=== PATIENT | male | born 1970 | race Caucasian/White ===

== ENCOUNTER 2017-05-24 07:34 | Emergency (ER) | payer OTHER ==
[~2017-05-24] VITALS: Ht 182.9 cm; Wt 97.5 kg
[2017-05-24 08:12] LABS: Basophils # (auto) 0.1 uL; Eosinophils # (auto) 0.3 uL; Eosinophils % (auto) 4.1 % (0.0-7.0); Hematocrit 38.8 % (41.0-53.0); Hemoglobin 13.6 g/dL (13.5-17.5); Lymphocytes # (auto) 1.4 uL; Lymphocytes % (auto) 17.7 % (10.0-50.0); Mean Corpuscular Hemoglobin 33.2 pg (28.0-32.0); Mean Corpuscular Volume 94.9 fL (80.0-100.0); Mean Platelet Volume 6.9 fL (6.9-10.8); Monocytes # (auto) 0.6 uL; Monocytes % (auto) 7.9 % (0.0-12.0); Neutrophils # (auto) 5.4 uL; Neutrophils % (auto) 69.3 % (37.0-80.0); Platelet Count (auto) 258 10^3/uL (140-450); Red Cell Distribution Width 13.7 % (11.8-14.3); White Blood Cell 7.8 10^3/uL (4.4-10.8)
[2017-05-24 08:23] LABS: INR 0.98 (0.9-1.15); Partial Thromboplastin Time 25.8 sec (22.64-33.71); Prothrombin Time 10.7 sec (9.37-12.3)
[2017-05-24 08:36] LABS: BUN/Creatinine Ratio 23.1; Bilirubin, Total 0.5 mg/dL (0.2-1.0); Calcium 8.7 mg/dL (8.5-10.1); Potassium 3.4 mmol/L (3.5-5.1); Total Protein 7.3 g/dL (6.4-8.2)
[2017-05-24 08:49] VITALS: BP 123/79
== END 2017-05-24 09:06 | disposition home or self-care (01) ==
LOC: ER 07:34
DX: R04.0 Epistaxis (principal); I10 Essential (primary) hypertension
CPT/HCPCS: 30901; 36415; 80053; 85025; 85610; 85730

== ENCOUNTER 2017-05-26 09:39 | Emergency (ER) | payer OTHER ==
[~2017-05-26] VITALS: Ht 182.9 cm; Wt 98.0 kg
[2017-05-26 11:12] VITALS: BP 146/100
== END 2017-05-26 11:40 | disposition home or self-care (01) ==
LOC: ER 09:39
DX: R04.0 Epistaxis (principal); I10 Essential (primary) hypertension; Z48.02 Encounter for removal of sutures

== ENCOUNTER 2022-04-11 06:35 | Day surgery (SDC) | payer OTHER ==
[2022-04-11] VITALS (7 sets, daily range): BP systolic 141–163; BP diastolic 91–106
[~2022-04-11] VITALS: Ht 180.3 cm; Wt 112.0 kg
[~2022-04-11 06:35] MED LIST: AMLO-489 PO; ASPI325T4 PO; CLON0.2T PO; LABE200T7 PO; LISI40TA11 PO; LORA0.5T20 PO; POTA-220 PO; TRIA37.55 PO
[2022-04-11] MEDS ORDERED: IOHEXOL 350 MG/ML 100ML IJ ONE ×2 (07:18→07:39)
[2022-04-11] MEDS ORDERED: LIDOCAINE 2%HCL (LOCAL ANESTH.) INJ 10ml MDV ONE (07:40)
[2022-04-11] MEDS ORDERED: VERAPAMIL 2.5MG/ML INJ 2ML VIAL IV ONE (08:14)
[2022-04-11] MEDS ORDERED: ANGIOMAX 250 MG VIAL IV ONE (08:14)
[2022-04-11] MEDS ORDERED: fentaNYL CITRATE 100 MCG/2 ML VL ONE (08:14)
[2022-04-11] MEDS ORDERED: HEPARIN SODIUM (PORCINE) 5000 UNITS/ML 1ML VIAL ONE (08:14)
[2022-04-11] MEDS ORDERED: MIDAZOLAM HCL 2MG/2ML 2ml VIAL (1mg/ml) ONE (08:15)
[2022-04-11] MEDS ORDERED: SODIUM CHL 0.9% 0 ML ONE (08:15)
[2022-04-11] MEDS ORDERED: diphenhdrAMINE HCL 50 MG/1 ML VL ONE (08:38)
== END 2022-04-11 11:20 | disposition home or self-care (01) ==
LOC: CATH 06:35
PROVIDERS: ATTEND Internal Medicine
DX: R94.39 Abnormal result of other cardiovascular function study (principal); I25.10 Atherosclerotic heart disease of native coronary artery without angina pectoris; I10 Essential (primary) hypertension; I25.2 Old myocardial infarction; Z95.5 Presence of coronary angioplasty implant and graft; Z87.891 Personal history of nicotine dependence; Z79.82 Long term (current) use of aspirin; Z20.822 Contact with and (suspected) exposure to COVID-19
CPT/HCPCS: 93458; C1887; C1894; J1200; J1644; J2001; J2250; J3010; Q9967; U0003; 99152

== ENCOUNTER 2022-05-06 09:18 | Inpatient (IN) | payer OTHER ==
[~2022-05-06] VITALS: Ht 180.3 cm; Wt 110.8 kg
[2022-05-06] MEDS ORDERED: SODIUM CHLORIDE 0.9% 1,000 ML IV ONE (10:00)
[2022-05-06] MEDS: ASPirin 81 mg TAB PO ONE ×2 (10:19→10:34)
[2022-05-06 10:52] LABS: INR 1.06 (0.9-1.15); Partial Thromboplastin Time 23.5 sec (24.6-33.4)
[2022-05-06 11:02] LABS: Albumin 3.5 g/dL (3.4-5.0); Calcium 8.5 mg/dL (8.5-10.1); Magnesium 2.1 mg/dL (1.6-2.6); Potassium 3.8 mmol/L (3.5-5.1)
[2022-05-06 11:05] LABS: BUN/Creatinine Ratio 15.3; Bilirubin, Total 0.3 mg/dL (0.2-1.0); Total Protein 6.4 g/dL (6.4-8.2)
[2022-05-06 11:32] LABS: Basophils # (auto) 0.1 10 ^3/uL (0-0.2); Basophils % (auto) 0.9 % (0.0-2.0); Eosinophils # (auto) 0.3 10 ^3/uL (0-0.8); Eosinophils % (auto) 3.8 % (0.0-7.0); Hematocrit 40.8 % (41.0-53.0); Hemoglobin 13.3 g/dL (13.5-17.5); Lymphocytes # (auto) 0.8 10 ^3/uL (0.4-5.4); Lymphocytes % (auto) 9.2 % (10.0-50.0); Mean Corpuscular Hemoglobin 29.7 pg (28.0-32.0); Mean Corpuscular Hgb Conc. 32.6 g/dL (32.0-36.0); Mean Corpuscular Volume 91.3 fL (80.0-100.0); Monocytes # (auto) 0.9 10 ^3/uL (0-1.3); Monocytes % (auto) 10.6 % (0.0-12.0); Neutrophils # (auto) 6.4 10 ^3/uL (1.6-8.6); Neutrophils % (auto) 75.5 % (37.0-80.0); Red Blood Cells 4.47 10^6/uL (4.5-5.90); Red Cell Distribution Width 14.7 % (11.8-14.3); White Blood Cell 8.5 10^3/uL (4.4-10.8)
[2022-05-06] MEDS ORDERED: MORPHINE SULFATE INJ 2 MG/ml SYRG IV PRN (19:00)
[2022-05-06] MEDS ORDERED: NITROGLYCERIN 0.4 MG SL TAB SL PRN (19:00)
[2022-05-06] MEDS ORDERED: hydrALAZINE HCL 20 MG/ML VL IV PRN (19:15)
[2022-05-06] MEDS ORDERED: ACETAMINOPHEN 325 MG TAB PO ONE (20:45)
[2022-05-06 22:00] VITALS: BP 157/84
[2022-05-06] MEDS: cloNIDine HCL 0.1 MG TAB PO SCH (23:00)
[2022-05-06] MEDS: amLODIPine BESYLATE 5 MG TAB PO SCH (23:00)
[2022-05-07] MEDS: guaiFENesin-DM 100/10mg/5ml SYR PO PRN ×3 (00:50→16:17)
[2022-05-07 05:00] VITALS: BP 143/83
[2022-05-07 06:17] LABS: Basophils # (auto) 0.1 10 ^3/uL (0-0.2); Basophils % (auto) 0.9 % (0.0-2.0); Eosinophils # (auto) 0.3 10 ^3/uL (0-0.8); Eosinophils % (auto) 4.5 % (0.0-7.0); Hematocrit 41.3 % (41.0-53.0); Hemoglobin 13.5 g/dL (13.5-17.5); Lymphocytes # (auto) 1.3 10 ^3/uL (0.4-5.4); Lymphocytes % (auto) 18.5 % (10.0-50.0); Mean Corpuscular Hemoglobin 29.8 pg (28.0-32.0); Mean Corpuscular Hgb Conc. 32.6 g/dL (32.0-36.0); Mean Corpuscular Volume 91.4 fL (80.0-100.0); Monocytes # (auto) 0.9 10 ^3/uL (0-1.3); Monocytes % (auto) 12.1 % (0.0-12.0); Neutrophils # (auto) 4.6 10 ^3/uL (1.6-8.6); Nucleated Red Blood Cells % 0.2 %; Red Blood Cells 4.52 10^6/uL (4.5-5.90); Red Cell Distribution Width 14.4 % (11.8-14.3); White Blood Cell 7.1 10^3/uL (4.4-10.8)
[2022-05-07 06:25] LABS: Potassium 3.4 mmol/L (3.5-5.1)
[2022-05-07 06:32] LABS: Albumin 3.3 g/dL (3.4-5.0); BUN/Creatinine Ratio 18.4; Bilirubin, Total 0.4 mg/dL (0.2-1.0); Calcium 8.3 mg/dL (8.5-10.1); Total Protein 6.1 g/dL (6.4-8.2)
[2022-05-07] MEDS: ACETAMINOPHEN 325 MG TAB PO PRN ×2 (07:24→18:53)
[2022-05-07 07:45] LABS: Urine Bacteria NONE SEEN /hpf (None Seen); Urine Blood Negative /uL (Negative); Urine Mucus FEW (None Seen); Urine WBC 2 /hpf (0 - 3)
[2022-05-07 07:59] LABS: Alcohol, Urine < 3.0 mg/dL (0-10); Amphetamine Screen, Urine NEGATIVE (NEGATIVE); Barbiturate Scree,Urine NEGATIVE (NEGATIVE); Benzodiazephine Screen, Urine NEGATIVE (NEGATIVE); Cannabinoid Screen, Urine NEGATIVE (NEGATIVE); Cocaine Screen, Urine NEGATIVE (NEGATIVE); Opiate Scree,Urine NEGATIVE (NEGATIVE); Phencyclidine Screen, Urine NEGATIVE (NEGATIVE)
[2022-05-07] MEDS: amLODIPine BESYLATE 5 MG TAB PO SCH ×2 (09:17→21:29)
[2022-05-07] MEDS: LISINOPRIL 20 MG TAB PO SCH (09:17)
[2022-05-07] MEDS: cloNIDine HCL 0.1 MG TAB PO SCH ×2 (09:18→21:28)
[2022-05-07] MEDS: ENOXAPARIN SOD 40 MG/0.4 ML SYRINGE SC SCH ×2 (09:18→09:27)
[2022-05-07] MEDS: TRIAMTERENE/HCTZ 37.5/25 MG CAP/TAB PO SCH (09:19)
[2022-05-07] MEDS: ASPirin-EC 325mg tab PO SCH (09:19)
[2022-05-07 09:26] VITALS: BP 137/84
[2022-05-07] MEDS ORDERED: POTASSIUM CHL 20 Meq TABLET PO ONE (11:00)
[2022-05-07] MEDS: LORazepam 0.5 MG TAB PO PRN ×2 (11:15→18:54)
[2022-05-07 13:00] VITALS: BP 146/92
[2022-05-07] MEDS ORDERED: POTASSIUM EFFERVESENT TAB 25 MEQ PO ONE (15:00)
[2022-05-07 16:23] VITALS: BP 157/92
[2022-05-07] MEDS: ALBUTEROL SULF 2.5 MG/0.5ML(0.5%) NEB SOLN NEB PRN (18:24)
[2022-05-07 18:28] VITALS: BP 157/92
[2022-05-07] MEDS: POTASSIUM CHL 20 Meq TABLET PO SCH (21:29)
[2022-05-07 21:59] VITALS: BP 137/79
[2022-05-07] MEDS: MORPHINE SULFATE INJ 2 MG/ml SYRG IV PRN (22:57)
[2022-05-07] MEDS: ONDANSETRON HCL 4 MG/2 ML VIAL IV PRN (23:00)
[2022-05-08] MEDS: ALBUTEROL SULF 2.5 MG/0.5ML(0.5%) NEB SOLN NEB PRN ×3 (02:03→11:07)
[2022-05-08 04:47] VITALS: BP 128/76
[2022-05-08] MEDS: ONDANSETRON HCL 4 MG/2 ML VIAL IV PRN (06:14)
[2022-05-08] MEDS: MORPHINE SULFATE INJ 2 MG/ml SYRG IV PRN ×2 (06:14→10:46)
[2022-05-08] MEDS: LORazepam 0.5 MG TAB PO PRN (07:40)
[2022-05-08 09:09] VITALS: BP 139/67
[2022-05-08] MEDS ORDERED: POTASSIUM CHL 20 Meq TABLET PO ONE (09:30)
[2022-05-08] MEDS: ASPirin-EC 325mg tab PO SCH (09:41)
[2022-05-08] MEDS: LISINOPRIL 20 MG TAB PO SCH (09:41)
[2022-05-08] MEDS: POTASSIUM CHL 20 Meq TABLET PO SCH (09:42)
[2022-05-08] MEDS: amLODIPine BESYLATE 5 MG TAB PO SCH (09:43)
[2022-05-08] MEDS: cloNIDine HCL 0.1 MG TAB PO SCH (09:44)
[2022-05-08] MEDS: TRIAMTERENE/HCTZ 37.5/25 MG CAP/TAB PO SCH (09:45)
[2022-05-08] MEDS: ENOXAPARIN SOD 40 MG/0.4 ML SYRINGE SC SCH (09:50)
[2022-05-08] MEDS ORDERED: ALBUAER3 IN (11:11)
[2022-05-08 13:33] VITALS: BP 139/86
[2022-05-08 13:58] VITALS: BP 139/86
== END 2022-05-08 14:00 | disposition home or self-care (01) | DRG 308 ==
LOC: ER 09:18 → EDBD 09:18 → TELE 18:58 → TELE-CENTR 22:21
PROVIDERS: ADMIT Registered Nurse; ATTEND Registered Nurse
DX: I49.3 Ventricular premature depolarization (principal); I50.33 Acute on chronic diastolic (congestive) heart failure; C61 Malignant neoplasm of prostate; E87.6 Hypokalemia; F10.10 Alcohol abuse, uncomplicated; I11.0 Hypertensive heart disease with heart failure; F41.9 Anxiety disorder, unspecified; Z20.822 Contact with and (suspected) exposure to COVID-19; G47.33 Obstructive sleep apnea (adult) (pediatric); F17.290 Nicotine dependence, other tobacco product, uncomplicated; Z71.41 Alcohol abuse counseling and surveillance of alcoholic; Z80.9 Family history of malignant neoplasm, unspecified; Z85.46 Personal history of malignant neoplasm of prostate; Z90.49 Acquired absence of other specified parts of digestive tract
CPT/HCPCS: 36415; 70450; 71045; 80053; 80307; 80320; 81001; 83735; 83880; 84484; 85025; 85610; 85730; 93005; 93306; 94640; 96361; 96374; G0378; J2405

== ENCOUNTER 2022-05-24 06:14 | Inpatient (IN) | payer OTHER ==
[2022-05-20 11:36] LABS: Basophils # (auto) 0.1 10 ^3/uL (0-0.2); Basophils % (auto) 0.8 % (0.0-2.0); Eosinophils # (auto) 0.3 10 ^3/uL (0-0.8); Eosinophils % (auto) 3.4 % (0.0-7.0); Hemoglobin 13.1 g/dL (13.5-17.5); Lymphocytes # (auto) 1.5 10 ^3/uL (0.4-5.4); Lymphocytes % (auto) 15.2 % (10.0-50.0); Mean Corpuscular Hemoglobin 29.9 pg (28.0-32.0); Mean Corpuscular Hgb Conc. 33.4 g/dL (32.0-36.0); Mean Corpuscular Volume 89.5 fL (80.0-100.0); Monocytes # (auto) 0.7 10 ^3/uL (0-1.3); Monocytes % (auto) 7.5 % (0.0-12.0); Neutrophils # (auto) 7.1 10 ^3/uL (1.6-8.6); Neutrophils % (auto) 73.1 % (37.0-80.0); Red Blood Cells 4.36 10^6/uL (4.5-5.90); Red Cell Distribution Width 14.2 % (11.8-14.3); White Blood Cell 9.8 10^3/uL (4.4-10.8)
[2022-05-20 11:47] LABS: INR 0.99 (0.9-1.15); Partial Thromboplastin Time 25.7 sec (24.6-33.4)
[2022-05-20 11:54] LABS: Urine Bacteria NONE SEEN /hpf (None Seen); Urine Blood Negative /uL (Negative); Urine Specific Gravity 1.004 (1.001-1.035); Urine WBC <1 /hpf (0 - 3)
[2022-05-20 12:40] LABS: Potassium 3.5 mmol/L (3.5-5.1)
[2022-05-20 12:56] LABS: BUN/Creatinine Ratio 15.2
[2022-05-20 12:57] LABS: Albumin 3.8 g/dL (3.4-5.0); Bilirubin, Total 0.4 mg/dL (0.2-1.0); Total Protein 6.8 g/dL (6.4-8.2)
[~2022-05-24] VITALS: Ht 180.3 cm; Wt 277.8 kg
[~2022-05-24 06:14] MED LIST changes: +LABE100T39 PO; -LABE200T7 PO; +TRAZ1TAB12 PO
[2022-05-24] MEDS ORDERED: LIDOCAINE 1%HCL (LOCAL ANESTH) 10 ML MDV ONE (06:49)
[2022-05-24] MEDS ORDERED: METHYLENE BLUE 0.5% 5MG/ML 10ml AMP IV ONE (06:49)
[2022-05-24] MEDS ORDERED: BUPIVACAINE W/ EPINEPH 0.25% INJ 50ML MDV ONE (06:49)
[2022-05-24] MEDS ORDERED: EPINEPHrine HCL 1 MG/1 ML AMP ONE (06:49)
[2022-05-24] MEDS ORDERED: ceFAZolin 1GM/50ML 100 ML IV ONE (07:18)
[2022-05-24] MEDS ORDERED: MIDAZOLAM HCL 2MG/2ML 2ml VIAL (1mg/ml) ONE (07:34)
[2022-05-24] MEDS ORDERED: fentaNYL CITRATE 10 ML ONE (07:34)
[2022-05-24] MEDS ORDERED: ROCURONIUM 10MG/ML 10ML VIAL IV ONE (08:50)
[2022-05-24] MEDS ORDERED: fentaNYL CITRATE 5 ML ONE ×2 (09:13→10:32)
[2022-05-24] MEDS ORDERED: HYDROmorphone HCL 2 MG/ML VL/or syr IV PRN (09:45)
[2022-05-24] MEDS ORDERED: ONDANSETRON HCL 4 MG/2 ML VIAL IV PRN ×2 (09:45→12:45)
[2022-05-24] MEDS ORDERED: ONDANSETRON HCL 4 MG/2 ML VIAL ONE (11:55)
[2022-05-24] MEDS ORDERED: PROPOFOL 10 MG/ML 20 ML IV ONE (12:27)
[2022-05-24] MEDS ORDERED: NEOSTIGMINE 1 MG/ML INJ (10mg/10ML VIAL) ONE (12:28)
[2022-05-24] MEDS ORDERED: GLYCOPYRROLATE 0.2 MG/ML 1ML VIAL ONE (12:28)
[2022-05-24] MEDS: HYDROmorphone HCL 2 MG/ML VL/or syr IV PRN ×4 (12:35→20:05)
[2022-05-24] MEDS ORDERED: HYDROmorphone HCL 2 MG/ML VL/or syr ONE (12:41)
[2022-05-24] MEDS ORDERED: NITROGLYCERIN 0.4 MG SL TAB SL PRN (12:45)
[2022-05-24] MEDS ORDERED: MORPHINE SULFATE INJ 2 MG/ml SYRG IV PRN ×2 (12:45)
[2022-05-24] MEDS ORDERED: TEMAZEPAM 15 MG CAP PO PRN (12:45)
[2022-05-24] MEDS ORDERED: ACETAMINOPHEN 325 MG TAB PO PRN (12:45)
[2022-05-24] MEDS ORDERED: DOCUSATE SOD 100 MG CAP PO PRN (12:45)
[2022-05-24] MEDS ORDERED: MEPERIDINE HCL (50 MG/ML) 1 ML VIAL ONE (12:57)
[2022-05-24] MEDS ORDERED: MEPERIDINE HCL (25 MG/ML) 1ML VIAL IV ONE (13:00)
[2022-05-24] MEDS ORDERED: SUCCINYLCHOLINE CHLORIDE 20 MG/ML 10ML VIAL IV ONE (14:56)
[2022-05-24] MEDS: SODIUM CHLORIDE 0.9% 1,000 ML IV SCH (16:30)
[2022-05-24] MEDS ORDERED: HYDROmorphone HCL 2 MG/ML VL/or syr IV ONE (20:45)
[2022-05-24 22:00] VITALS: BP 150/107
[2022-05-25] MEDS: HYDROmorphone HCL 2 MG/ML VL/or syr IV PRN ×4 (02:10→14:42)
[2022-05-25 05:00] VITALS: BP 125/56
[2022-05-25] MEDS: SODIUM CHLORIDE 0.9% 1,000 ML IV SCH (05:10)
[2022-05-25 09:00] VITALS: BP 157/90
[2022-05-25 12:19] VITALS: BP 163/71
[2022-05-25] MEDS: HYDROcodone-ACET 5/325MG TAB PO PRN ×2 (12:45→19:05)
[2022-05-25] MEDS ORDERED: CIPROFLOXACIN HCL 500 MG TAB PO ONE (13:30)
[2022-05-25] MEDS ORDERED: LORazepam 0.5 MG TAB PO SCH (14:00)
[2022-05-25 16:52] VITALS: BP 138/97
[2022-05-25] MEDS ORDERED: traZODone HCL 50 MG TAB PO SCH (18:00)
[2022-05-25 18:15] VITALS: BP 139/97
[2022-05-25] MEDS ORDERED: CIPROFLOXACIN HCL 500 MG TAB PO SCH (22:00)
[2022-05-25] MEDS ORDERED: cloNIDine HCL 0.1 MG TAB PO SCH (22:00)
[2022-05-25] MEDS ORDERED: LABETALOL HCL 200 MG TAB PO SCH (22:00)
[2022-05-25] MEDS ORDERED: POTASSIUM CHL 20 Meq TABLET PO SCH (22:00)
[2022-05-26] MEDS ORDERED: ASPirin 325 MG TAB PO SCH (10:00)
[2022-05-26] MEDS ORDERED: TRIAMTERENE/HCTZ 37.5/25 MG CAP/TAB PO SCH (10:00)
[2022-05-26] MEDS ORDERED: LISINOPRIL 20 MG TAB PO SCH (10:00)
[2022-05-26] MEDS ORDERED: amLODIPine BESYLATE 5 MG TAB PO SCH (10:00)
== END 2022-05-25 19:10 | disposition home or self-care (01) | DRG 708 ==
LOC: SUR 06:14 → OVERFLOW 12:43 → TELE 14:44 → TELE-EAST 15:38
PROVIDERS: ADMIT Urology; ATTEND Urology
PROC: 07BC4ZZ Excision of Pelvis Lymphatic, Percutaneous Endoscopic Approach (ICD-10-PCS; 2022-05-24)
PROC: 0VT04ZZ Resection of Prostate, Percutaneous Endoscopic Approach (ICD-10-PCS; 2022-05-24)
PROC: 8E0W4CZ Robotic Assisted Procedure of Trunk Region, Percutaneous Endoscopic Approach (ICD-10-PCS; principal; 2022-05-24 07:41)
DX: C61 Malignant neoplasm of prostate (principal); Z20.822 Contact with and (suspected) exposure to COVID-19
CPT/HCPCS: 36415; 80053; 81001; 85025; 85610; 85730; 86850; 86900; 86901; 87086; G0378; J0171; J0330; J0690; J2001; J2250; J2405; J2704

== ENCOUNTER 2023-03-20 15:42 | Inpatient (IN) | payer OTHER ==
[~2023-03-20] VITALS: Ht 154.7 cm; Wt 120.0 kg
[~2023-03-20 15:42] MED LIST changes: -AMLO-489 PO; +AMLO1TAB22 PO; -ASPI325T4 PO; +CARV25TA55 PO; +ESCI5TAB20 PO; +ISOS5TAB PO; -LABE100T39 PO; -LISI40TA11 PO; +LORA-1121 PO; -LORA0.5T20 PO; -TRIA37.55 PO; +TRIA37.586 PO
[2023-03-20 16:14] LABS: Basophils # (auto) 0.1 10 ^3/uL (0-0.2); Basophils % (auto) 1.1 % (0.0-2.0); Eosinophils # (auto) 0.4 10 ^3/uL (0-0.8); Eosinophils % (auto) 4.3 % (0.0-7.0); Hematocrit 42.5 % (41.0-53.0); Hemoglobin 14.2 g/dL (13.5-17.5); Lymphocytes % (auto) 19.8 % (10.0-50.0); Mean Corpuscular Hemoglobin 30.6 pg (28.0-32.0); Mean Corpuscular Hgb Conc. 33.4 g/dL (32.0-36.0); Mean Corpuscular Volume 91.6 fL (80.0-100.0); Monocytes # (auto) 0.9 10 ^3/uL (0-1.3); Monocytes % (auto) 9.1 % (0.0-12.0); Neutrophils # (auto) 6.7 10 ^3/uL (1.6-8.6); Neutrophils % (auto) 65.7 % (37.0-80.0); Nucleated Red Blood Cells % 0.1 %; Red Blood Cells 4.64 10^6/uL (4.5-5.90); Red Cell Distribution Width 14.4 % (11.8-14.3); White Blood Cell 10.2 10^3/uL (4.4-10.8)
[2023-03-20] MEDS ORDERED: MORPHINE SULFATE 4 MG/ML SYR/VIAL IV ONE (16:15)
[2023-03-20] MEDS ORDERED: ONDANSETRON HCL 4 MG/2 ML VIAL IV ONE (16:15)
[2023-03-20 16:26] LABS: Albumin 3.9 g/dL (3.4-5.0); Calcium 9.1 mg/dL (8.5-10.1); Potassium 3.6 mmol/L (3.5-5.1)
[2023-03-20 16:28] VITALS: PULSE 54; RESP 20; O2SAT 98
[2023-03-20 16:30] LABS: BUN/Creatinine Ratio 15.8 (10.0-20.0); Bilirubin, Total 0.4 mg/dL (0.2-1.0); INR 1.01 (0.9-1.15); Magnesium 2.6 mg/dL (1.6-2.6); Partial Thromboplastin Time 26.6 SEC (24.5-34.5); Total Protein 6.5 g/dL (6.4-8.2)
[2023-03-20] MEDS ORDERED: CALCIUM GLUC 1,000mg/50ml-NS 50 ML IV ONE (17:00)
[2023-03-20] MEDS ORDERED: ACETAMINOPHEN 325 MG TAB PO PRN (18:00)
[2023-03-20] MEDS ORDERED: NITROGLYCERIN 0.4 MG SL TAB SL PRN (18:00)
[2023-03-20] MEDS ORDERED: MORPHINE SULFATE INJ 2 MG/ml SYRG IV PRN ×2 (18:00)
[2023-03-20] MEDS ORDERED: HYDROcodone-ACET 5/325MG TAB PO PRN (18:00)
[2023-03-20] MEDS ORDERED: LORazepam 2MG/ML-1ML VIAL IV ONE (18:00)
[2023-03-20] MEDS ORDERED: ASPirin-EC 325mg tab PO ONE (18:15)
[2023-03-20 19:25] VITALS: PULSE 57; RESP 15; O2SAT 96
[2023-03-20] MEDS ORDERED: LORazepam 0.5 MG TAB PO PRN (21:00)
[2023-03-20] MEDS: POTASSIUM CHL 20 Meq TABLET PO SCH (21:58)
[2023-03-20] MEDS: cloNIDine HCL 0.1 MG TAB PO SCH (21:59)
[2023-03-20] MEDS: LORazepam 0.5 MG TAB PO SCH (21:59)
[2023-03-20] MEDS ORDERED: traZODone HCL 50 MG TAB PO ONE (22:00)
[2023-03-20] MEDS: ISOSORBIDE DINITRATE 10 MG TAB PO SCH (22:00)
[2023-03-20] MEDS: ATORVASTATIN 20 MG TAB PO SCH (22:00)
[2023-03-21 03:33] LABS: Urine Bacteria NONE SEEN /hpf (None Seen); Urine Blood Negative /uL (Negative); Urine Mucus FEW (None Seen); Urine Specific Gravity 1.016 (1.001-1.035); Urine WBC 4 /hpf (0 - 3)
[2023-03-21 04:10] LABS: Alcohol, Urine < 3.0 mg/dL (0-10); Amphetamine Screen, Urine NEGATIVE (NEGATIVE); Barbiturate Scree,Urine NEGATIVE (NEGATIVE); Benzodiazephine Screen, Urine NEGATIVE (NEGATIVE); Cannabinoid Screen, Urine NEGATIVE (NEGATIVE)
[2023-03-21 04:12] LABS: Cocaine Screen, Urine NEGATIVE (NEGATIVE); Opiate Scree,Urine NEGATIVE (NEGATIVE); Phencyclidine Screen, Urine NEGATIVE (NEGATIVE)
[2023-03-21 05:33] LABS: Basophils # (auto) 0.1 10 ^3/uL (0-0.2); Basophils % (auto) 1.1 % (0.0-2.0); Eosinophils # (auto) 0.3 10 ^3/uL (0-0.8); Eosinophils % (auto) 5.3 % (0.0-7.0); Hematocrit 40.2 % (41.0-53.0); Hemoglobin 13.2 g/dL (13.5-17.5); Lymphocytes # (auto) 1.2 10 ^3/uL (0.4-5.4); Lymphocytes % (auto) 19.7 % (10.0-50.0); Mean Corpuscular Hemoglobin 30.4 pg (28.0-32.0); Mean Corpuscular Hgb Conc. 32.9 g/dL (32.0-36.0); Mean Corpuscular Volume 92.6 fL (80.0-100.0); Monocytes # (auto) 0.7 10 ^3/uL (0-1.3); Monocytes % (auto) 10.3 % (0.0-12.0); Neutrophils % (auto) 63.6 % (37.0-80.0); Red Blood Cells 4.34 10^6/uL (4.5-5.90); Red Cell Distribution Width 14.7 % (11.8-14.3); White Blood Cell 6.3 10^3/uL (4.4-10.8)
[2023-03-21 05:49] LABS: Albumin 3.6 g/dL (3.4-5.0); Calcium 8.6 mg/dL (8.5-10.1); Potassium 3.5 mmol/L (3.5-5.1)
[2023-03-21] MEDS: cloNIDine HCL 0.1 MG TAB PO SCH ×3 (05:53→20:32)
[2023-03-21] MEDS: LORazepam 0.5 MG TAB PO SCH ×3 (05:53→20:32)
[2023-03-21 05:57] LABS: Bilirubin, Total 0.5 mg/dL (0.2-1.0); Total Protein 6.3 g/dL (6.4-8.2)
[2023-03-21 07:37] VITALS: PULSE 48; RESP 17; O2SAT 97
[2023-03-21] MEDS: amLODIPine BESYLATE 5 MG TAB PO SCH (10:00)
[2023-03-21] MEDS: ENOXAPARIN SOD 40 MG/0.4 ML SYRINGE SC SCH ×2 (10:00→10:05)
[2023-03-21] MEDS: CITALOPRAM HYDROBR 20 MG TAB PO SCH (10:05)
[2023-03-21] MEDS: POTASSIUM CHL 20 Meq TABLET PO SCH ×2 (10:05→20:34)
[2023-03-21] MEDS: ASPirin-EC 81 mg tab PO SCH (10:05)
[2023-03-21] MEDS: ISOSORBIDE DINITRATE 10 MG TAB PO SCH ×2 (10:06→20:32)
[2023-03-21] MEDS: TRIAMTERENE/HCTZ 75/50MG TABLET PO SCH (10:07)
[2023-03-21] MEDS: CARVEDILOL 12.5 MG TAB PO SCH ×2 (13:35→22:00)
[2023-03-21] MEDS ORDERED: traZODone HCL 50 MG TAB PO SCH ×2 (18:00→21:00)
[2023-03-21 20:00] VITALS: PULSE 58; PULSE 64; RESP 18; O2SAT 95
[2023-03-21] MEDS: ATORVASTATIN 20 MG TAB PO SCH (20:30)
[2023-03-22 05:04] VITALS: BP 138/80; PULSE 55; RESP 22; TEMP 98.5; O2SAT 96
[2023-03-22] MEDS: CARVEDILOL 12.5 MG TAB PO SCH ×2 (06:00→14:00)
[2023-03-22] MEDS: LORazepam 0.5 MG TAB PO SCH ×2 (06:30→15:16)
[2023-03-22] MEDS: cloNIDine HCL 0.1 MG TAB PO SCH ×2 (06:31→14:00)
[2023-03-22 06:48] LABS: Basophils # (auto) 0.1 10 ^3/uL (0-0.2); Basophils % (auto) 1.2 % (0.0-2.0); Eosinophils # (auto) 0.3 10 ^3/uL (0-0.8); Eosinophils % (auto) 4.8 % (0.0-7.0); Hematocrit 39.2 % (41.0-53.0); Hemoglobin 13.1 g/dL (13.5-17.5); Lymphocytes % (auto) 18.9 % (10.0-50.0); Mean Corpuscular Hemoglobin 30.8 pg (28.0-32.0); Mean Corpuscular Hgb Conc. 33.6 g/dL (32.0-36.0); Mean Corpuscular Volume 91.8 fL (80.0-100.0); Monocytes # (auto) 0.5 10 ^3/uL (0-1.3); Monocytes % (auto) 8.6 % (0.0-12.0); Neutrophils # (auto) 3.6 10 ^3/uL (1.6-8.6); Neutrophils % (auto) 66.5 % (37.0-80.0); Nucleated Red Blood Cells % 0.1 %; Red Blood Cells 4.26 10^6/uL (4.5-5.90); Red Cell Distribution Width 14.4 % (11.8-14.3); White Blood Cell 5.5 10^3/uL (4.4-10.8)
[2023-03-22 06:55] LABS: BUN/Creatinine Ratio 18.4 (10.0-20.0); Calcium 8.3 mg/dL (8.5-10.1); Potassium 3.8 mmol/L (3.5-5.1)
[2023-03-22 08:00] VITALS: PULSE 64; RESP 18
[2023-03-22 09:00] VITALS: BP 118/58; PULSE 51; RESP 21; TEMP 97.3; O2SAT 96
[2023-03-22] MEDS: ASPirin-EC 81 mg tab PO SCH (09:52)
[2023-03-22] MEDS: CITALOPRAM HYDROBR 20 MG TAB PO SCH (09:52)
[2023-03-22] MEDS: POTASSIUM CHL 20 Meq TABLET PO SCH (09:53)
[2023-03-22] MEDS: ISOSORBIDE DINITRATE 10 MG TAB PO SCH (09:53)
[2023-03-22] MEDS: amLODIPine BESYLATE 5 MG TAB PO SCH (09:53)
[2023-03-22] MEDS: TRIAMTERENE/HCTZ 75/50MG TABLET PO SCH (09:54)
[2023-03-22] MEDS: ENOXAPARIN SOD 40 MG/0.4 ML SYRINGE SC SCH (09:54)
[2023-03-22 13:00] VITALS: BP 116/70; PULSE 50; RESP 21; TEMP 98.2; O2SAT 96
[2023-03-22 14:11] VITALS: BP 118/58; PULSE 55; TEMP 36.3
[2023-03-22 17:00] VITALS: BP 131/70; PULSE 81; RESP 19; TEMP 98.4; O2SAT 98
== END 2023-03-22 18:07 | disposition home or self-care (01) | DRG 313 ==
LOC: ER 15:42 → TELE 18:02 → TELE-EAST 03-21 17:26
PROVIDERS: ADMIT Internal Medicine Pulmonary Disease; ATTEND Student in an Organized Health Care Education/Training Program
DX: R07.9 Chest pain, unspecified (principal); Z68.42 Body mass index [BMI] 45.0-49.9, adult; I50.22 Chronic systolic (congestive) heart failure; E66.01 Morbid (severe) obesity due to excess calories; I11.0 Hypertensive heart disease with heart failure; M19.90 Unspecified osteoarthritis, unspecified site; F41.9 Anxiety disorder, unspecified; E87.6 Hypokalemia; G47.33 Obstructive sleep apnea (adult) (pediatric); I49.3 Ventricular premature depolarization; Z80.9 Family history of malignant neoplasm, unspecified; Z90.49 Acquired absence of other specified parts of digestive tract; Z85.46 Personal history of malignant neoplasm of prostate; Z79.899 Other long term (current) drug therapy
CPT/HCPCS: 36415; 71045; 80048; 80053; 80061; 80307; 81001; 83735; 83880; 84443; 84484; 85025; 85379; 85610; 85730; 93005; 93306; 93970; 96374; 96375; 99291; G0378; J2405

== ENCOUNTER 2024-04-30 08:25 | Inpatient (IN) | payer OTHER ==
[~2024-04-30] VITALS: Ht 180.3 cm; Wt 114.1 kg
[~2024-04-30 08:25] MED LIST changes: +BUPR100T16 PO; +CARV12.544 PO
[2024-04-30 11:08] LABS: Basophils # (auto) 0.1 10 ^3/uL (0-0.2); Basophils % (auto) 0.9 % (0.0-2.0); Eosinophils # (auto) 0.3 10 ^3/uL (0-0.8); Eosinophils % (auto) 3.1 % (0.0-7.0); Hematocrit 38.5 % (41.0-53.0); Hemoglobin 13.3 g/dL (13.5-17.5); Lymphocytes # (auto) 1.5 10 ^3/uL (0.4-5.4); Lymphocytes % (auto) 14.7 % (10.0-50.0); Mean Corpuscular Hemoglobin 32.8 pg (28.0-32.0); Mean Corpuscular Hgb Conc. 34.6 g/dL (32.0-36.0); Monocytes # (auto) 0.8 10 ^3/uL (0-1.3); Monocytes % (auto) 7.6 % (0.0-12.0); Neutrophils # (auto) 7.5 10 ^3/uL (1.6-8.6); Neutrophils % (auto) 73.7 % (37.0-80.0); Platelet Count (auto) 287 10^3/uL (140-450); Red Blood Cells 4.06 10^6/uL (4.5-5.90); Red Cell Distribution Width 13.7 % (11.8-14.3); White Blood Cell 10.1 10^3/uL (4.4-10.8)
[2024-04-30 11:29] LABS: Alanine Aminotransferase 18 U/L (7-40); Albumin 4.8 g/dL (3.2-4.8); Alkaline Phosphatase 46 U/L (46-116); Anion Gap 11 (5-15); Aspartate Aminotransferase 13 U/L (13-40); BUN/Creatinine Ratio 20.2 (10.0-20.0); Bilirubin, Total 0.7 mg/dL (0.2-1.0); Blood Urea Nitrogen 37 mg/dL (9-23); Calcium 9.9 mg/dL (8.7-10.4); Carbon Dioxide 27 mmol/L (20-30); Chloride 99 mmol/L (98-107); Glucose 99 mg/dL (74-106); Lipase 38 U/L (12-53); Potassium 3.1 mmol/L (3.5-5.1); Sodium 137 mmol/L (136-145); Total Protein 6.8 g/dL (5.7-8.2)
[2024-04-30] MEDS: SODIUM CHLORIDE 0.9% 1,000 ML IV ONE (12:45)
[2024-04-30] MEDS ORDERED: NITROGLYCERIN 0.4 MG SL TAB SL PRN (14:00)
[2024-04-30] MEDS ORDERED: ONDANSETRON HCL 4 MG/2 ML VIAL IV PRN (14:00)
[2024-04-30 15:19] LABS: Magnesium 2.1 mg/dL (1.6-2.6)
[2024-04-30 15:20] LABS: Phosphorus 3.2 mg/dL (2.4-5.1)
[2024-04-30 15:32] VITALS: BP 100/68; PULSE 59; RESP 20; TEMP 98.2; O2SAT 98
[2024-04-30] MEDS ORDERED: FURO40TA4 PO (16:17)
[2024-04-30] MEDS ORDERED: ATOR20TA50 PO (16:17)
[2024-04-30] MEDS ORDERED: SACU1TAB7 PO (16:17)
[2024-04-30] MEDS ORDERED: HYDR-3682 PO (16:17)
[2024-04-30] MEDS ORDERED: TRIA75TA11 PO (16:17)
[2024-04-30] MEDS ORDERED: HYDR25TA87 PO (16:17)
[2024-04-30] MEDS ORDERED: BUPR75TA98 PO (16:17)
[2024-04-30] MEDS ORDERED: CLON0.1T PO (16:17)
[2024-04-30] MEDS ORDERED: LORA-1123 PO (16:17)
[2024-04-30] MEDS ORDERED: AMIO200T13 PO (16:17)
[2024-04-30] MEDS: POTASSIUM EFFERVESENT TAB 25 MEQ PO ONE (17:14)
[2024-04-30] MEDS: SODIUM CHLORIDE 0.9% 1,000 ML IV SCH (17:14)
[2024-04-30] MEDS: PANTOPRAZOLE 40 MG/10 ML VIAL INJ IV ONE (17:14)
[2024-04-30] MEDS ORDERED: traZODone HCL 50 MG TAB PO SCH ×2 (18:00→22:00)
[2024-04-30 20:00] VITALS: PULSE 55; RESP 20; O2SAT 97
[2024-04-30] MEDS: traZODone HCL 50 MG TAB PO SCH (20:17)
[2024-04-30 21:00] VITALS: BP 111/61; PULSE 55; RESP 20; TEMP 98.5; O2SAT 97
[2024-04-30] MEDS: PANTOPRAZOLE 40 MG/10 ML VIAL INJ IV SCH (21:46)
[2024-04-30] MEDS: ISOSORBIDE DINITRATE 10 MG TAB PO SCH (21:48)
[2024-04-30 21:58] LABS: Urine Bacteria None Seen /hpf (None Seen)
[2024-04-30] MEDS: cloNIDine HCL 0.1 MG TAB PO SCH (22:00)
[2024-04-30] MEDS: CARVEDILOL 12.5 MG TAB PO SCH (22:00)
[2024-04-30 22:08] LABS: Urine Blood Negative /uL (Negative); Urine Clarity Clear (Clear); Urine Color Light-Yellow (Yellow); Urine Protein, UAD Negative (Negative); Urine Specific Gravity 1.009 (1.001-1.035); Urine Urobilinogen Normal (Negative); Urine WBC <1 /hpf (0 - 3)
[2024-04-30 22:10] LABS: Sodium Urine < 10 mmol/L (40-220)
[2024-04-30 22:14] LABS: Protein, Urine < 6.0 mg/dL (0.0-11.9)
[2024-04-30 22:16] LABS: Amphetamine Screen, Urine Neg (NEGATIVE); Barbiturate Scree,Urine Neg (NEGATIVE); Benzodiazephine Screen, Urine Neg (NEGATIVE); Cannabinoid Screen, Urine Neg (NEGATIVE); Cocaine Screen, Urine Neg (NEGATIVE); Opiate Scree,Urine Neg (NEGATIVE); Phencyclidine Screen, Urine Neg (NEGATIVE)
[2024-04-30 22:17] LABS: Creatinine, Urine 65.65 mg/dL (30.0-125.0); Urine Protein/Creatinine Ratio 0.09
[2024-05-01] VITALS (9 sets, daily range): BP systolic 99–140; BP diastolic 52–74; PULSE 51–79; RESP 15–24; TEMP 97.3–98.4; O2SAT 91–99
[2024-05-01] MEDS: MORPHINE SULFATE INJ 2 MG/ml SYRG IV PRN (00:06)
[2024-05-01 06:23] LABS: Basophils # (auto) 0.1 10 ^3/uL (0-0.2); Basophils % (auto) 0.8 % (0.0-2.0); Eosinophils # (auto) 0.3 10 ^3/uL (0-0.8); Hematocrit 34.9 % (41.0-53.0); Hemoglobin 12.1 g/dL (13.5-17.5); Lymphocytes # (auto) 1.3 10 ^3/uL (0.4-5.4); Lymphocytes % (auto) 19.6 % (10.0-50.0); Mean Corpuscular Hemoglobin 32.9 pg (28.0-32.0); Mean Corpuscular Hgb Conc. 34.7 g/dL (32.0-36.0); Mean Corpuscular Volume 94.8 fL (80.0-100.0); Monocytes # (auto) 0.5 10 ^3/uL (0-1.3); Monocytes % (auto) 8.2 % (0.0-12.0); Neutrophils # (auto) 4.5 10 ^3/uL (1.6-8.6); Neutrophils % (auto) 67.4 % (37.0-80.0); Nucleated Red Blood Cells % 0.1 %; Platelet Count (auto) 220 10^3/uL (140-450); Red Blood Cells 3.68 10^6/uL (4.5-5.90); Red Cell Distribution Width 13.9 % (11.8-14.3); White Blood Cell 6.7 10^3/uL (4.4-10.8)
[2024-05-01 06:34] LABS: Alanine Aminotransferase 17 U/L (7-40); Albumin 3.9 g/dL (3.2-4.8); Alkaline Phosphatase 42 U/L (46-116); Anion Gap 8 (5-15); Aspartate Aminotransferase 10 U/L (13-40); BUN/Creatinine Ratio 16.1 (10.0-20.0); Carbon Dioxide 28 mmol/L (20-30); Chloride 106 mmol/L (98-107); Glucose 92 mg/dL (74-106); Potassium 3.2 mmol/L (3.5-5.1); Sodium 142 mmol/L (136-145)
[2024-05-01 06:35] LABS: Bilirubin, Total 0.5 mg/dL (0.2-1.0); Total Protein 5.9 g/dL (5.7-8.2)
[2024-05-01 06:47] LABS: Blood Urea Nitrogen 24 mg/dL (9-23)
[2024-05-01] MEDS ORDERED: PATIENTS OWN MEDICATION (Escitalopram Oxalate 1 TAB) PO SCH (10:00)
[2024-05-01] MEDS ORDERED: TRIAMTERENE/HCTZ 37.5/25 MG CAP/TAB PO SCH (10:00)
[2024-05-01] MEDS ORDERED: CARV-217 PO (10:08)
[2024-05-01] MEDS ORDERED: POTA-36 PO (10:08)
[2024-05-01] MEDS ORDERED: CLON0.1T PO (10:08)
[2024-05-01] MEDS ORDERED: ASPI325T6 PO (10:08)
[2024-05-01] MEDS: amLODIPine BESYLATE 5 MG TAB PO SCH (10:12)
[2024-05-01] MEDS: POTASSIUM EFFERVESENT TAB 25 MEQ PO ONE (10:15)
[2024-05-01] MEDS ORDERED: SODIUM CHLORIDE LOCK 10 ML ONE (11:22)
[2024-05-01] MEDS ORDERED: LIDOCAINE VISCOUS 2% 15ML UD ONE (11:22)
[2024-05-01] MEDS ORDERED: MIDAZOLAM HCL 5 MG/ML-1ML VIAL ONE (11:23)
[2024-05-01] MEDS ORDERED: fentaNYL CITRATE 100 MCG/2 ML VL ONE (11:23)
[2024-05-01] MEDS ORDERED: diphenhdrAMINE HCL 50 MG/1 ML VL ONE (11:23)
[2024-05-01] MEDS: LORazepam 0.5 MG TAB PO ONE (11:49)
[2024-05-01] MEDS ORDERED: ONDANSETRON HCL 4 MG/2 ML VIAL ONE (13:21)
[2024-05-01] MEDS ORDERED: PROPOFOL 10 MG/ML 20 ML IV ONE ×2 (13:21→13:22)
[2024-05-01] MEDS: ONDANSETRON HCL 4 MG/2 ML VIAL IV ONE (13:45)
[2024-05-01] MEDS: PANTOPRAZOLE 40mg/50ML NS AE 50 ML IV SCH (15:46)
[2024-05-01] MEDS: ACETAMINOPHEN 325 MG TAB PO PRN (15:46)
[2024-05-01] MEDS: POTASSIUM CHL 20MEQ/100ML 100 ML IV ONE (15:46)
[2024-05-01] MEDS: SUCRALFATE 1 GM/10 ML ORAL SUSP GT SCH (18:20)
[2024-05-01] MEDS: DOCUSATE SOD 100 MG CAP PO PRN (18:28)
[2024-05-01] MEDS: LORazepam 0.5 MG TAB PO PRN (21:26)
[2024-05-01] MEDS: cloNIDine HCL 0.1 MG TAB PO SCH (21:30)
[2024-05-01] MEDS: Sacubitril-Valsartan (Entresto 49-51 mg) 1 TAB PO SCH (21:30)
[2024-05-01] MEDS ORDERED: LORazepam 0.5 MG TAB PO SCH (22:00)
[2024-05-02 00:38] VITALS: BP 110/63; PULSE 68; RESP 18; TEMP 97.5; O2SAT 94
[2024-05-02 05:00] VITALS: BP 106/58; PULSE 60; RESP 19; TEMP 98.2; O2SAT 95
[2024-05-02] MEDS: buPROPion HCL 75 MG TAB PO SCH (06:14)
[2024-05-02 09:01] VITALS: BP 105/72; PULSE 50; RESP 19; TEMP 97.5; O2SAT 95
[2024-05-02] MEDS: AMIODARONE HCL 200 MG TAB PO SCH (09:42)
[2024-05-02] MEDS: FUROSEMIDE 40 MG TAB PO SCH (09:47)
[2024-05-02] MEDS ORDERED: ATORVASTATIN 20 MG TAB PO SCH (10:00)
[2024-05-02 10:29] LABS: Chloride 109 mmol/L (98-107); Potassium 3.6 mmol/L (3.5-5.1); Sodium 140 mmol/L (136-145)
[2024-05-02 10:30] LABS: Anion Gap 4 (5-15); Calcium 8.6 mg/dL (8.7-10.4); Carbon Dioxide 27 mmol/L (20-30)
[2024-05-02 10:35] LABS: BUN/Creatinine Ratio 9.2 (10.0-20.0); Blood Urea Nitrogen 12 mg/dL (9-23); Glucose 110 mg/dL (74-106)
[2024-05-02 13:00] VITALS: BP 102/58; PULSE 54; RESP 20; TEMP 98.1; O2SAT 100
[2024-05-02] MEDS: ALLOPURINOL 100 MG TAB PO SCH (14:42)
[2024-05-02] MEDS: LACTULOSE 20Gm/30ML SOLN PO ONE (16:40)
[2024-05-02 17:00] VITALS: BP 105/62; PULSE 54; RESP 19; TEMP 98.4; O2SAT 95
[2024-05-02 21:00] VITALS: BP 122/79; PULSE 69; RESP 18; TEMP 99.1; O2SAT 94
[2024-05-02] MEDS: ATORVASTATIN 20 MG TAB PO SCH (21:06)
[2024-05-02] MEDS: CARVEDILOL 3.125 MG TAB PO SCH (22:00)
[2024-05-03 01:00] VITALS: BP 109/52; PULSE 67; RESP 18; O2SAT 94
[2024-05-03] MEDS: HYDROcodone-ACET 5/325MG TAB PO PRN (02:28)
[2024-05-03 05:00] VITALS: BP 113/59; PULSE 61; RESP 18; TEMP 98.3; O2SAT 94
[2024-05-03] MEDS: LACTULOSE 20Gm/30ML SOLN PO SCH (09:22)
[2024-05-03 10:23] VITALS: BP 110/72; PULSE 51; RESP 16; TEMP 99; O2SAT 98
[2024-05-03] MEDS: PANTOPRAZOLE 40 MG/10 ML VIAL INJ IV SCH (10:28)
[2024-05-03] MEDS ORDERED: CARV-214 PO (14:38)
[2024-05-03] MEDS ORDERED: ALL100T PO (14:38)
[2024-05-03] MEDS ORDERED: LACT10SO3 PO (14:38)
[2024-05-03] MEDS ORDERED: PANT40T PO (14:38)
[2024-05-03] MEDS ORDERED: SUCR1SUS26 GT (14:38)
[2024-05-03 16:57] VITALS: BP 124/60; PULSE 56; RESP 17; TEMP 98.3; O2SAT 96
[2024-05-03 17:07] VITALS: BP 121/70; PULSE 47; RESP 17; TEMP 98; O2SAT 97
[2024-05-03] MEDS ORDERED: SACUBITRIL-VALSARTAN 24mg/26mg TAB PO SCH (22:00)
== END 2024-05-03 18:15 | disposition home or self-care (01) | DRG 377 ==
LOC: ER 08:25 → OVERFLOW 13:51 → EAST 15:24 → TELE-E-ADS 05-02 17:27
PROVIDERS: ADMIT Internal Medicine Pulmonary Disease; ATTEND Internal Medicine Pulmonary Disease
PROC: 0DB68ZX Excision of Stomach, Via Natural or Artificial Opening Endoscopic, Diagnostic (ICD-10-PCS; 2024-05-01)
PROC: 0DB98ZX Excision of Duodenum, Via Natural or Artificial Opening Endoscopic, Diagnostic (ICD-10-PCS; principal; 2024-05-01 12:47)
DX: K29.71 Gastritis, unspecified, with bleeding (principal); N17.0 Acute kidney failure with tubular necrosis; I13.0 Hypertensive heart and chronic kidney disease with heart failure and stage 1 through stage 4 chronic kidney disease, or unspecified chronic kidney disease; N12 Tubulo-interstitial nephritis, not specified as acute or chronic; I50.42 Chronic combined systolic (congestive) and diastolic (congestive) heart failure; K25.4 Chronic or unspecified gastric ulcer with hemorrhage; K26.4 Chronic or unspecified duodenal ulcer with hemorrhage; E87.6 Hypokalemia; D17.79 Benign lipomatous neoplasm of other sites; N18.9 Chronic kidney disease, unspecified; N20.0 Calculus of kidney; E66.01 Morbid (severe) obesity due to excess calories; E78.5 Hyperlipidemia, unspecified; G47.33 Obstructive sleep apnea (adult) (pediatric); K44.9 Diaphragmatic hernia without obstruction or gangrene; K57.30 Diverticulosis of large intestine without perforation or abscess without bleeding; F41.9 Anxiety disorder, unspecified; I48.91 Unspecified atrial fibrillation; Z90.49 Acquired absence of other specified parts of digestive tract; Z79.899 Other long term (current) drug therapy; Z79.82 Long term (current) use of aspirin; Z85.46 Personal history of malignant neoplasm of prostate; Z68.33 Body mass index [BMI] 33.0-33.9, adult
CPT/HCPCS: 36415; 71045; 71250; 74176; 76775; 80048; 80053; 80307; 80320; 81001; 82270; 82306; 82570; 83690; 83735; 83970; 84100; 84156; 84300; 84484; 84550; 85025; 86850; 86900; 86901; 93005; 93306; 96360; G0378; J2250; J2405; J2470; J2704; J3480

== ENCOUNTER 2024-06-25 15:31 | Emergency (ER) | payer OTHER ==
[~2024-06-25] VITALS: Ht 180.3 cm; Wt 100.0 kg
[~2024-06-25 15:31] MED LIST changes: +ALL100T PO; +AMIO200T13 PO; +ATOR20TA50 PO; +CARV-214 PO; -CARV12.544 PO; -CARV25TA55 PO; +CLON0.1T PO; -CLON0.2T PO; -ESCI5TAB20 PO; +FURO40TA4 PO; +HYDR25TA87 PO; +LACT10SO3 PO; -LORA-1121 PO; +LORA-1123 PO; +PANT40T PO; -POTA-220 PO; +POTA-36 PO; +SACU1TAB7 PO; +SUCR1SUS26 GT
[2024-06-25 16:24] LABS: Basophils # (auto) 0.1 10 ^3/uL (0-0.2); Basophils % (auto) 0.7 % (0.0-2.0); Eosinophils # (auto) 0.2 10 ^3/uL (0-0.8); Hematocrit 38.8 % (41.0-53.0); Hemoglobin 13.5 g/dL (13.5-17.5); Lymphocytes # (auto) 1.8 10 ^3/uL (0.4-5.4); Lymphocytes % (auto) 16.3 % (10.0-50.0); Mean Corpuscular Hemoglobin 32.7 pg (28.0-32.0); Mean Corpuscular Hgb Conc. 34.9 g/dL (32.0-36.0); Mean Corpuscular Volume 93.6 fL (80.0-100.0); Monocytes # (auto) 0.7 10 ^3/uL (0-1.3); Monocytes % (auto) 6.1 % (0.0-12.0); Neutrophils # (auto) 8.2 10 ^3/uL (1.6-8.6); Neutrophils % (auto) 74.9 % (37.0-80.0); Nucleated Red Blood Cells % 0.1 %; Platelet Count (auto) 353 10^3/uL (140-450); Red Blood Cells 4.14 10^6/uL (4.5-5.90); Red Cell Distribution Width 13.8 % (11.8-14.3); White Blood Cell 10.9 10^3/uL (4.4-10.8)
[2024-06-25 16:34] LABS: Alanine Aminotransferase 18 U/L (7-40); Alkaline Phosphatase 54 U/L (46-116); Anion Gap 10 (5-15); Aspartate Aminotransferase 11 U/L (13-40); Blood Urea Nitrogen 35 mg/dL (9-23); Calcium 10.3 mg/dL (8.7-10.4); Carbon Dioxide 27 mmol/L (20-31); Chloride 103 mmol/L (98-107); Glucose 98 mg/dL (74-106); Potassium 3.2 mmol/L (3.5-5.1); Sodium 140 mmol/L (136-145)
[2024-06-25 16:35] LABS: Albumin 4.6 g/dL (3.2-4.8); Bilirubin, Total 0.4 mg/dL (0.2-1.0); Total Protein 6.8 g/dL (5.7-8.2)
[2024-06-25 17:21] VITALS: BP 94/63; PULSE 85; RESP 16; TEMP 98; O2SAT 95
== END 2024-06-25 18:39 | disposition left against medical advice (07) ==
LOC: EDBD 15:31 → ER 15:31
DX: R07.89 Other chest pain (principal); I11.0 Hypertensive heart disease with heart failure; I50.89 Other heart failure; Z98.890 Other specified postprocedural states; Z79.899 Other long term (current) drug therapy
CPT/HCPCS: 36415; 71045; 80053; 83735; 83880; 84484; 85025; 93005

== ENCOUNTER 2024-06-28 16:58 | Inpatient (IN) | payer OTHER ==
[~2024-06-28] VITALS: Ht 180.3 cm; Wt 110.5 kg
[~2024-06-28 16:58] MED LIST changes: +BACL10TA PO; +CARV12.544 PO; +HYDR-3682 PO
--- NOTE | 2024-06-28 17:21 | ECG ---
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
--- NOTE | 2024-06-28 17:35 | ED.PDOC ---
HPI Comments This is a 53-year-old male who comes into the ED by EMS with chief complain of chest pain and palpitations. Patient has a past medical history relevant for CHF. Patient stated that for the last few days he has been experiencing severe midsternal chest pain, localized, he states that it is worsened exertion on rest provides minimal relief, he stated that both aspirin and nitroglycerin did provide some relief but the chest pain comes back an hour of taking them, patient stated that he has also been experiencing shortness of breath, dizziness, palpitations which are more prominent when he exerts himself. He stated that today he felt really lightheaded and almost passed out. 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 Patient stated he took 650 mg of aspirin and five nitroglycerin pills. Chief Complaint: Chest Pain Time Seen by MD: 17:04 Primary Care Provider: POLY Reviewed Notes: Nurses Notes Allergies: Coded Allergies: No Known Drug Allergy (Verified Allergy, Unknown, 04/08/22) Home Meds Active Scripts Pantoprazole Sodium Sesquihydr (Pantoprazole Sodium) 40 Mg Tab, 40 MG PO BID for 30 Days, #60 TAB Prov:SHANTEL VARGAS [facility] 05/03/24 Sucralfate (CARAFATE SUSP) 1 Gm/10 Ml Ss, 1 GM GT QID@0600,1130,1700,2200 for 30 Days, #120 ML Prov:SHANTEL VARGAS [facility] 05/03/24 Lactulose (Lactulose) 10 Gm/15 Ml Leonela, 30 ML PO DAILY for 30 Days, #30 ML Prov:SHANTEL VARGAS [facility] 05/03/24 Carvedilol (COREG) 3.125 Mg Tab, 6.25 MG PO Q12HR for 30 Days, #120 TAB Prov:SHANTEL VARGAS [facility] 05/03/24 Allopurinol (ZYLOPRIM TABLET) 100 Mg Tb, 300 MG PO DAILY for 30 Days, #90 TAB Prov:SHANTEL VARGAS [facility] 05/03/24 Reported Medications Bupropion Hcl (Bupropion Hcl Er) 100 Mg Tab, 1 TAB PO QAM for 30 Days, #30 05/02/24 Potassium Chloride (POTASSIUM CHLORIDE CR) 10 Meq Tb, 20 MEQ PO TID, TAB 05/01/24 Clonidine Hydrochloride (Clonidine Hcl) 0.1 Mg Tab, 0.1 MG PO TID for 30 Days, MG 05/01/24 Furosemide (Furosemide) 40 Mg Tab, 1 TAB PO DAILY 04/30/24 Sacubitril-Valsartan (Entresto 49-51 mg) 1 Tab Tab, 1 TAB PO BID 04/30/24 Lorazepam (Lorazepam) 1 Mg Tab, 1 TAB PO BID 04/30/24 Hydralazine HCl (Hydralazine HCl) 25 Mg Tab, TAB PO 04/30/24 Amiodarone HCl (Amiodarone HCl) 200 Mg Tab, 1 TAB PO DAILY 04/30/24 Atorvastatin Calcium (ATORVASTATIN CALCIUM) 20 Mg Tab, 1 TAB PO DAILY 04/30/24 Isosorbide Dinitrate (Isosorbide Dinitrate) 5 Mg Tab, 1 TAB PO BID 12/03/22 Trazodone Hcl (Trazodone Hcl) 150 Mg Tab, 150 MG PO QPM, TAB 05/20/22 Hydrochlorothiazide W/Triamter (Triamterene/Hydrochloroth) 1 Cap Cap, 1 CAP PO DAILY, CAP 04/08/22 Amlodipine Besylate (Amlodipine Besylate) 5 Mg Tab, 5 MG PO DAILY for HTN, MG 04/08/22 Information Source: Patient Mode of Arrival: EMS Severity: Severe Timing: Hours Duration: Since onset Quality: Pressure Onset: At Rest, With Light Exertion Associated Signs and Symptoms: SOB, Palpitations, Diaphoresis Past Medical History PAST MEDICAL HISTORY: Anxiety, Arthritis, Cancer, CHF, HTN Surgical History: Appendectomy, Tonsillectomy Family History Family History: Family hx of Cancer Social History Smoker: Other Alcohol: Occasionally Drugs: Denies Drug Use Lives In: Home Constitutional: reports: diaphoresis; denies: chills, fatigue, fever, malaise, sweats, weakness, others EENTM: denies: blurred vision, double vision, ear bleeding, ear discharge, ear drainage, ear pain, ear ringing, eye pain, eye redness, hearing loss, mouth pain, mouth swelling, nasal discharge, nose bleeding, nose congestion, nose pain, photophobia, tearing, throat pain, throat swelling, voice changes, others Respiratory: reports: shortness of breath, SOB with excertion; denies: cough, hemoptysis, orthopnea, SOB at rest, stridor, wheezing, others Cardiovascular: reports: chest pain, dizzy spells, irregular heart beat, lightheadedness, palpitations; denies: diaphoresis, Dyspnea on exertion, edema, left arm pain, PND, syncope, others Gastrointestinal: denies: abdomen distended, abdominal pain, blood streaked bowels, constipated, diarrhea, dysphagia, difficulty swallowing, hematemesis, melena, nausea, poor appetite, poor fluid intake, rectal bleeding, rectal pain, vomiting, others Genitourinary: denies: burning, dysuria, flank pain, frequency, hematuria, incontinence, penile discharge, penile sore, pain, testicle pain, testicle swelling, urgency, others Neurological: reports: dizziness, fainting; denies: headache, left sided numbness, left sided weakness, numbness, paresthesia, pre-existing deficit, right sided numbness, right sided weakness, seizure, speech problems, tingling, tremors, weakness, others Musculoskeletal: denies: back pain, gout, joint pain, joint swelling, muscle pain, muscle stiffness, neck pain, others Integumetry: denies: bruises, change in color, change in hair/nails, dryness, laceration, lesions, lumps, rash, wounds, others Allergic/Immunocompromised: denies: Difficulty Healing, Frequent Infections, Hives, Itching, others Hematologic/Lymphatic: denies: anemia, blood clots, easy bleeding, easy bruising, swollen glands, others Endocrine: denies: excessive hunger, excessive sweating, excessive thirst, excessive urination, flushing, intolerance to cold, intolerance to heat, unexplained weight gain, unexplained weight loss, others Psychiatric: denies: anxiety, bipolar disorder, depression, hopeless, panic disorder, schizophrenia, sleepless, suicidal, others Physical Exam General Appearance: Obese, Severe Distress HEENT: Normal ENT Inspection, Pharynx Normal, TMs Normal Neck: Full Range of Motion, Non-Tender, Normal, Normal Inspection Respiratory: Chest Non-Tender, Lungs Clear, No Accessory Muscle Use, No Respiratory Distress, Normal Breath Sounds Cardiovascular: No Edema, No JVD, No Murmur, No Gallop, Normal Peripheral Pulses, Regular Rate/Rhythm Breast Exam: Deferred Gastrointestinal: No Organomegaly, Non Tender, No Pulsatile Mass, Normal Bowel Sounds, Soft Genitalia: Deferred Pelvic: Deferred Rectal: Deferred Extremities: No calf tenderness, Normal capillary refill, Normal inspection, Normal range of motion, Non-tender, No pedal edema Neurologic: Alert, activity manager II-XII nml as Tested, No Motor Deficits, Normal Affect, Normal Mood, No Sensory Deficits Cerebellar Function: NOT DONE Reflexes: NOT DONE Skin: Dry, Normal Color, Warm Lymphatic: No Adenopathy Was a procedure done? Was a procedure done?: No CP Differential Dx Differential Diagnosis: A-fib, A-Flutter, Electrolyte Disorder, Heart Failure, PSVT, PVC's, Sinus Tachycardia Differential Diagnosis: CHF Differential Diagnosis: Angina, Chest Wall Pain, Costochondritis, Gastritis, Myocardial Infarction, Pericarditis X-Ray, Labs, Meds, VS Vital Signs Date Time Temp Pulse Resp B/P (MAP) Pulse Ox O2 Delivery O2 Flow Rate FiO2 06/28/24 17:08 97.6 85 20 118/51 (73) 98 06/28/24 17:00 93 Images Reviewed?: Images reviewed and evaluated by me Time of 1ST Reevaluation: 17:24 Reevaluation 1ST: Unchanged Patient Education/Counseling: Diagnosis, Treatment Family Education/Counseling: No Family Present Departure 1 Departure Time of Disposition: 17:34 Impression: Primary Impression: ACS (acute coronary syndrome) Additional Impressions: Acute chest pain PVCs (premature ventricular contractions) SVT (supraventricular tachycardia) Disposition: ADMITTED INPATIENT Condition: Guarded Critical Care Note Critical Care Time?: No Stability Stability form required: No Heart Score Heart Score: Heart Score Response (Comments) Value History Highly Suspicious 2 EKG Normal 0 Age 45-64 1 Risk Factors >3 or Hx ASHD 2 Troponin N/A 0 Total 5 JACKIE TERRY RESIDENT Jun 28, 2024 17:35
[2024-06-28 17:51] VITALS: PULSE 88; RESP 18; O2SAT 95
[2024-06-28] MEDS ORDERED: GABA-1250 PO (17:51)
[2024-06-28 17:53] LABS: Basophils # (auto) 0.1 10 ^3/uL (0-0.2); Basophils % (auto) 0.5 % (0.0-2.0); Eosinophils # (auto) 0.2 10 ^3/uL (0-0.8); Eosinophils % (auto) 1.6 % (0.0-7.0); Hemoglobin 13.8 g/dL (13.5-17.5); Lymphocytes # (auto) 1.6 10 ^3/uL (0.4-5.4); Lymphocytes % (auto) 10.7 % (10.0-50.0); Mean Corpuscular Hemoglobin 31.9 pg (28.0-32.0); Mean Corpuscular Hgb Conc. 34.4 g/dL (32.0-36.0); Mean Corpuscular Volume 92.7 fL (80.0-100.0); Monocytes # (auto) 1.1 10 ^3/uL (0-1.3); Monocytes % (auto) 7.7 % (0.0-12.0); Neutrophils # (auto) 11.6 10 ^3/uL (1.6-8.6); Neutrophils % (auto) 79.5 % (37.0-80.0); Platelet Count (auto) 339 10^3/uL (140-450); Red Blood Cells 4.31 10^6/uL (4.5-5.90); Red Cell Distribution Width 13.7 % (11.8-14.3); White Blood Cell 14.6 10^3/uL (4.4-10.8)
--- NOTE | 2024-06-28 17:55 | DVH ---
CHEST RADIOGRAPH Indication:chest pain Technique: Single frontal view of the chest was obtained Comparison: XY CHEST PORTABLE on DOS: 06/25/24, XY CHEST XRAY 1 VIEW on DOS: 05/01/24 FINDINGS: Lines and Tubes: None Lungs: No focal consolidation. Pleura: No effusion. No pneumothorax. Cardiomediastinal contours: Unremarkable Bones: No acute osseous abnormality. IMPRESSION: 1. No radiographic evidence of acute cardiopulmonary disease. HS:Y
[2024-06-28 17:59] LABS: Chloride 100 mmol/L (98-107); Potassium 3.3 mmol/L (3.5-5.1); Sodium 138 mmol/L (136-145)
[2024-06-28 18:00] LABS: Anion Gap 11 (5-15); Carbon Dioxide 27 mmol/L (20-31)
[2024-06-28 18:01] LABS: Urine Bacteria None Seen /hpf (None Seen)
[2024-06-28 18:01] LABS: Calcium 10.3 mg/dL (8.7-10.4)
[2024-06-28 18:05] LABS: Glucose 101 mg/dL (74-106)
[2024-06-28 18:06] LABS: BUN/Creatinine Ratio 20.5 (10.0-20.0); Blood Urea Nitrogen 43 mg/dL (9-23); Magnesium 2.2 mg/dL (1.6-2.6)
[2024-06-28 18:16] LABS: Urine Blood Negative /uL (Negative); Urine Clarity Clear (Clear); Urine Color Light-Yellow (Yellow); Urine Protein, UAD Negative (Negative); Urine Specific Gravity 1.008 (1.001-1.035); Urine Urobilinogen Normal (Negative); Urine WBC 1 /hpf (0 - 3)
[2024-06-28] MEDS: POTASSIUM CHL 20 Meq TABLET PO ONE (18:43)
[2024-06-28 19:20] VITALS: PULSE 82; RESP 14; O2SAT 96
[2024-06-28] MEDS: SODIUM CHLORIDE 0.9% 1,000 ML IV ONE (20:02)
[2024-06-28] MEDS ORDERED: ONDANSETRON HCL 4 MG/2 ML VIAL IV PRN (20:45)
[2024-06-28] MEDS ORDERED: NITROGLYCERIN 0.4 MG SL TAB SL PRN (20:45)
[2024-06-28] MEDS: ENOXAPARIN SOD 40 MG/0.4 ML SYRINGE SC SCH (20:45)
[2024-06-28] MEDS: SODIUM CHLOR 0.9% PF (SALINE LOCK) 10ML VIAL/SYR IV SCH (22:00)
[2024-06-28 22:30] VITALS: BP 98/60; PULSE 60; RESP 18; TEMP 98.1; O2SAT 93
[2024-06-28 22:32] VITALS: BP 98/60; PULSE 60; RESP 18; TEMP 98.1; O2SAT 93
[2024-06-28 22:40] VITALS: BP 98/60; PULSE 60; RESP 18; TEMP 98.1; O2SAT 93
[2024-06-28] MEDS ORDERED: SUCR1TAB PO (23:05)
[2024-06-28] MEDS ORDERED: ALLO100T PO (23:05)
[2024-06-29] VITALS (9 sets, daily range): BP systolic 96–117; BP diastolic 52–64; PULSE 56–71; RESP 16–18; TEMP 97.6–98.3; O2SAT 93–99
--- NOTE | 2024-06-29 00:37 | DVHHPRES ---
History of Present Illness Resident Creating Document: AARON BARDALES RESIDENT History of Present Illness CLARISA GONZALEZ 53 years old male with a PMH of HTN, CHF, CAD, prostate cancer, peptic ulcer disease with a bleeding ulcer, PVCs presented to the ED with the chief complaints of presyncope for past 4 days worsened today. Patient reported has been having lightheadedness, dizziness,severe midsternal chest pain, localized, he states that it is worsened exertion on rest provides minimal relief, he stated that both aspirin and nitroglycerin did provide some relief but the chest pain comes back an hour of taking them, for which he went to Dr. Moreno,recommended to come to the hospital and advised to get stress test and angiography. On my assessment patient denies nausea, vomiting and other associated symptoms Past Medical History HTN, CHF, CAD, prostate cancer, peptic ulcer disease, anxiety, PVCs Past Surgical History Appendectomy, tonsillectomy, foot surgery, ablation for PVCs Family History Family history of cancer Past Social History Lives at home with family. Patient does vaping, occasional alcohol use but denies other drug abuse Review of Systems Constitutional: No: Fever, Chills, Sweats, Weakness, Malaise, Other Eyes: No: Pain, Vision change, Conjunctivae inflammation, Eyelid inflammation, Other, Redness ENT: No: Ear pain, Ear discharge, Nose pain, Nose discharge, Nose congestion, Mouth pain, Mouth swelling, Throat pain, Throat swelling, Other Respiratory: Shortness of breath, SOB with excertion Cardiovascular: Chest Pain, Palpitations, Lt Headedness Gastrointestinal: Nausea Genitourinary: No Dysuria, No Frequency, No Incontinence, No Hematuria, No Retention, No Other Musculoskeletal: No: other, neck pain, shoulder pain, arm pain, back pain, hand pain, leg pain, foot pain Skin: No: Rash, Lesions, Jaundice, Bruising, Other Neurological: No: Weakness, Numbness, Incoordination, Change in speech, Confusion, Seizures, Other Allergies: Coded Allergies: No Known Drug Allergy (Verified Allergy, Unknown, 04/08/22) Medications Current Medications Medications Dose Ordered Sig/Yesica Route Start Time Stop Time Status Last Admin Dose Admin Sodium Chloride 10 ml Q8HR IV 06/28/24 22:00 Ondansetron HCl 4 mg Q4HP PRN IV 06/28/24 20:45 Morphine Sulfate 2 mg Q4HPRN PRN IV 06/28/24 20:45 Enoxaparin Sodium 40 mg DAILY SC 06/28/24 20:45 Nitroglycerin 0.4 mg Q5MINP PRN SL 06/28/24 20:45 Morphine Sulfate 2 mg Q30M PRN IV 06/28/24 20:45 Trazodone HCl 150 mg HS PO 06/29/24 22:00 Lorazepam 1 mg Q6HP PRN PO 06/28/24 23:15 Allopurinol 100 mg TID PO 06/29/24 06:00 UNV Amiodarone HCl 200 mg DAILY PO 06/29/24 10:00 UNV Atorvastatin Calcium 20 mg DAILY PO 06/29/24 10:00 UNV Furosemide 40 mg DAILY PO 06/29/24 10:00 UNV Pantoprazole Sodium 40 mg BID PO 06/29/24 10:00 UNV Sucralfate 1 gm BID PO 06/29/24 10:00 UNV Exam Vital Signs Vital Signs Date Time Temp Pulse Resp B/P (MAP) Pulse Ox O2 Delivery O2 Flow Rate FiO2 06/28/24 22:32 98.1 60 18 98/60 (73) 93 98.1 06/28/24 19:20 Room Air* 0 21 Exam Pt is lying on bed General Appearance: Alert, Oriented X3, Cooperative, Not in acute distress HEENT: Atraumatic, Mucous membranes moist/pink Respiratory: Clear to auscultation, Normal air movement, No added sounds Cardiovascular: Regular rate, Normal S1, Normal S2, No murmurs Abdominal: Active bowel sounds, Soft, no distention, no tenderness Extremities: No edema, Normal pulses, No tenderness/swelling Skin: No Significant rash, except past surgical scars Neuro: Normal speech, sensorimotor deficits none Psych/Mental Status: Mental status NL, Mood NL Nurse was there as sharperone during examination Labs/Xrays Labs Test 06/28/24 18:24 06/28/24 17:41 06/28/24 17:25 Range/Units Troponin I High Sensitivity 8 </=54 ng/L Urine Color Light-yellow Yellow Urine Clarity Clear Clear Urine pH 7.0 5.0-9.0 Urine Specific [place] 1.008 1.001-1.035 Urine Protein Negative Negative Urine Ketones Negative Negative Urine Blood Negative Negative /uL Urine Nitrite Negative Negative Urine Bilirubin Negative Negative Urine Urobilinogen Normal Negative mg/dL Urine Leukocyte Esterase Negative Negative /uL Urine RBC 1 0 - 3 /hpf Urine WBC 1 0 - 3 /hpf Urine Squamous Epithelial Cells Few <5 /hpf Urine Bacteria None seen None Seen /hpf Urine Glucose Normal Normal mg/dL White Blood Count 14.6 #H 4.4-10.8 10^3/uL Red Blood Count 4.31 L 4.5-5.90 10^6/uL Hemoglobin 13.8 13.5-17.5 g/dL Hematocrit 40.0 L 41.0-53.0 % Mean Corpuscular Volume 92.7 80.0-100.0 fL Mean Corpuscular Hemoglobin 31.9 28.0-32.0 pg Mean Corpuscular Hemoglobin Concent 34.4 32.0-36.0 g/dL Red Cell Distribution Width 13.7 11.8-14.3 % Platelet Count 339 140-450 10^3/uL Mean Platelet Volume 6.9 6.9-10.8 fL Neutrophils (%) (Auto) 79.5 37.0-80.0 % Lymphocytes (%) (Auto) 10.7 10.0-50.0 % Monocytes (%) (Auto) 7.7 0.0-12.0 % Eosinophils (%) (Auto) 1.6 0.0-7.0 % Basophils (%) (Auto) 0.5 0.0-2.0 % Neutrophils # (Auto) 11.6 H 1.6-8.6 10 ^3/uL Lymphocytes # (Auto) 1.6 0.4-5.4 10 ^3/uL Monocytes # (Auto) 1.1 0-1.3 10 ^3/uL Eosinophils # (Auto) 0.2 0-0.8 10 ^3/uL Basophils # (Auto) 0.1 0-0.2 10 ^3/uL Nucleated Red Blood Cells 0.0 % Sodium Level 138 136-145 mmol/L Potassium Level 3.3 L 3.5-5.1 mmol/L Chloride Level 100 98-107 mmol/L Carbon Dioxide Level 27 20-31 mmol/L Anion Gap 11 5-15 Blood Urea Nitrogen 43 H 9-23 mg/dL Creatinine 2.10 H 0.700-1.30 mg/dL Glomerular Filtration Rate Calc 36 >90 mL/min BUN/Creatinine Ratio 20.5 H 10.0-20.0 Serum Glucose 101 74-106 mg/dL Calcium Level 10.3 8.7-10.4 mg/dL Magnesium Level 2.2 1.6-2.6 mg/dL B-Type Natriuretic Peptide 29.23 0-100 pg/mL Assessment/Plan Assessment/Plan # Presyncope # chest pain rule out ACS # ? PVC vs SVT -continuously monitor on telemetry -reviewed EKG -troponins x3 are negative -chest pain protocol ordered -resume home meds -cardiology for further management # Hypokalemia - Repleting - Monitor lab #Mervin likely VMN -monitor lab # Anxiety -resumed home meds # hypertension -continuously Monitor blood pressure -resume home meds -hold if needed # Peptic ulcer disease -pantoprazole 40 mg -resume home meds Lovenox for now protonix Cardiac diet Reconciled home meds Goals of care discussed with the patient for more than 27 minutes: Full code status Case management discussed with Dr. Brian, patient and nurse Plan discussed with: Patient My Orders Orders - AARON BARDALES RESIDENT Procedure Category Date Status Time Admit ADMIT 06/28/24 Transmitted 20:33 Allergies [facility] 06/28/24 In Process 20:33 Code Status CODE 06/28/24 Transmitted 20:33 Sodium Chloride Lock PHA 06/28/24 In Process (Saline Lock Ns) 22:00 Ondansetron Hcl PHA 06/28/24 In Process (Zofran) 20:45 Complete Blood Count LAB 06/29/24 Logged 04:00 Comprehensive LAB 06/29/24 Logged Metabolic Panel 04:00 Cardiac DIET 06/29/24 Transmitted Diet-2gna,Lofat,Lochol Breakfast Morphine Sulfate PHA 06/28/24 In Process Injection 20:45 Enoxaparin Sodium PHA 06/28/24 In Process (Lovenox) 20:45 Nitroglycerin PHA 06/28/24 In Process Sublingual (Ntrostat 20:45 Morphine Sulfate PHA 06/28/24 In Process Injection 20:45 Oxygen By Nasal RT 06/28/24 Transmitted Cannula 20:33 Stat Ekg For Chest [facility] 06/28/24 In Process Pain 20:33 Notify Of Changes [facility] 06/28/24 In Process From Base 20:33 Burn Nurse For [facility] 06/28/24 In Process 24 Hours 20:33 Emergency Dysrhythmia [facility] 06/28/24 In Process Protocol 20:33 Rhythm Strips Once [facility] 06/28/24 In Process Every Shift 20:33 Trazodone Hcl PHA 06/29/24 In Process (Desyrel) 22:00 Lorazepam Tablet PHA 06/28/24 In Process (Ativan Tablet) 23:15 Drug Screen LAB 06/29/24 Logged 00:09 Hemoglobin A1c LAB 06/29/24 Logged 00:09 Vitamin D, 25-Hydroxy LAB 06/29/24 Logged 00:09 Vitamin B12 LAB 06/29/24 Logged 00:09 Urinalysis LAB 06/29/24 Logged 00:09 Thyroid Stimulating LAB 06/29/24 Logged Hormone 00:09 Lactic Acid W/ Reflex LAB 06/29/24 Logged Order 00:10 Allopurinol Tablet PHA 06/29/24 Logged (Zyloprim Tablet) 06:00 Amiodarone Tablet PHA 06/29/24 Logged (Cordarone Tablet) 10:00 Atorvastatin (Lipitor) PHA 06/29/24 Logged 10:00 Furosemide Tablet PHA 06/29/24 Logged (Lasix Tablet) 10:00 Pantoprazole Tablet PHA 06/29/24 Logged (Protonix Tablet) 10:00 Sucralfate Tab PHA 06/29/24 Logged (Carafate Tab) 10:00 *Cons[address] Dr[address] Ricardo ALBA 06/29/24 Verified Kaushik 00:34 Date of Service: Jun 28, 2024 Billing Provider: ISAAC BRIAN MD Common Visit Codes: [id number] INP/OBS CARE (HIGH) AARON BARDALES RESIDENT Jun 29, 2024 00:37 ISAAC BRIAN MD Jun 29, 2024 12:56
[2024-06-29] MEDS: MORPHINE SULFATE INJ 2 MG/ml SYRG IV PRN (00:52)
[2024-06-29] MEDS: LORazepam 0.5 MG TAB PO PRN (03:00)
[2024-06-29] MEDS: ALLOPURINOL 100 MG TAB PO SCH (05:33)
--- NOTE | 2024-06-29 05:50 | DVHINCON2 ---
Date of service: Jun 29, [address] Longoria Reason for Consultation Chest pain, Palpitations, Dizziness History of Present Illness This is a 53-year old male known outside to our practice who initially presented (06/28/2024) with reported chest pain, palpitations, and dizziness. Patient reports he was shopping in [employer] and felt a sudden onset of palpitations resulting in dizziness requiring him to sit down as he reports he nearly passed out. Following the event, he developed an onset of chest pain which he self administered both Aspirin and SL Nitroglycerin with reported improvement in chest pain. Later that day, he reports experiencing another episode of dizziness with near syncope which at that time he called EMS for further assistance. Upon chart review, EKG tracing performed in the field with EMS revealed presence of sustained ventricular tachycardia which the patient denies having underwent carmelo ck for. Upon ED arrival, 12-lead electrocardiogram was performed revealing sinus rhythm at 93bpm, QRS of 102ms, QTc of 477ms, with no acute ischemic changes. HS troponin trend is found unremarkable (9, 8, 7). BNP level is found normal at 29.23. D-Dimer is elevated at 1.08. Initial potassium level of 3.3 with an initial magnesium level of 2.2. TSH level is found to be 0.82. Initial creatinine level of 2.1. Initial WBC count of 14.6 which chest imaging and urinalysis were found non-revealing. As the patient, initially presented with dizziness and chest pain, Cardiology services have now been involved for cardiac aspects of care. Past Medical History Past medical history includes systolic heart failure, morbid obesity, anxiety disorder, DJD, hypertension, GERD, insomnia, carotid atherosclerosis, gout, hyperlipidemia, gastric duodenal ulcer, diverticulosis, hiatal hernia, history of prostate cancer s/p radical prostatectomy (06/27/2022), obstructive sleep apnea and status post its surgery, known history of frequent PVC s/p RFA x 2 (04/06/2023)(10/31/2023), history of appendectomy/tonsillectomy. Has had multiple cardiac catheterization (last in March 2022) which have remained normal. Echocardiogram of May 16, 2022 revealed ejection fraction 45% Echocardiogram of November 21, 2022 (performed in the office), revealed mild concentric left ventricular hypertrophy, LVEF of 45 to 50%, mild biatrial enlargement, aortic root 3.8 cm, mild AI, trace MR/TR/PI. Echocardiogram of March 21, 2023 revealed ejection fraction 45% Left heart catheterization of April 11, 2022 revealed minimal coronary disease and normal EDP. Past Surgical History Reviewed Family History: Diabetes mellitus G8 BROTHER FH: cancer G8 FATHER Allergies: Coded Allergies: No Known Drug Allergy (Verified Allergy, Unknown, 04/08/22) Home Meds Active Scripts Pantoprazole Sodium Sesquihydr (Pantoprazole Sodium) 40 Mg Tab, 40 MG PO BID for 30 Days, #60 TAB Prov:SHANTEL VARGAS RESIDENT 05/03/24 Carvedilol (COREG) 3.125 Mg Tab, 6.25 MG PO Q12HR for 30 Days, #120 TAB Prov:SHANTEL VARGAS RESIDENT 05/03/24 Reported Medications Isosorbide Mononitrate (Isosorbide Mononitrate) 10 Mg Tab, 5 MG PO BID, TAB 06/29/24 Sucralfate (Sucralfate) 1 Gm Tab, 1 TAB PO BID 06/28/24 Allopurinol (Allopurinol) 100 Mg Tab, 1 TAB PO TID 06/28/24 Bupropion Hcl (Bupropion Hcl Er) 100 Mg Tab, 75 MG PO QAM for 30 Days, #30 05/02/24 Potassium Chloride (POTASSIUM CHLORIDE CR) 10 Meq Tb, 20 MEQ PO BID, TAB 05/01/24 Clonidine Hydrochloride (Clonidine Hcl) 0.1 Mg Tab, 0.1 MG PO BID for 30 Days, MG 05/01/24 Furosemide (Furosemide) 40 Mg Tab, 1 TAB PO DAILY 04/30/24 Sacubitril-Valsartan (Entresto 49-51 mg) 1 Tab Tab, 1 TAB PO BID 04/30/24 Lorazepam (Lorazepam) 1 Mg Tab, 1 TAB PO BID 04/30/24 Hydralazine HCl (Hydralazine HCl) 25 Mg Tab, 1 TAB PO BID 04/30/24 Amiodarone HCl (Amiodarone HCl) 200 Mg Tab, 1 TAB PO DAILY 04/30/24 Atorvastatin Calcium (ATORVASTATIN CALCIUM) 20 Mg Tab, 1 TAB PO DAILY 04/30/24 Trazodone Hcl (Trazodone Hcl) 150 Mg Tab, 150 MG PO HS, TAB 05/20/22 Hydrochlorothiazide W/Triamter (Triamterene/Hydrochloroth) 1 Cap Cap, 1 CAP PO DAILY, CAP 04/08/22 Amlodipine Besylate (Amlodipine Besylate) 5 Mg Tab, 5 MG PO DAILY for HTN, MG 04/08/22 Current Medications Current Medications Medications (Trade) Dose Ordered Sig/Yesica Route PRN Reason Start Time Stop Time Status Last Admin Sodium Chloride (Saline Lock Ns) 10 ml Q8HR IV 06/28/24 22:00 06/29/24 05:35 Ondansetron HCl (Zofran) 4 mg Q4HP PRN IV NAUSEA / VOMITING 06/28/24 20:45 Morphine Sulfate 2 mg Q4HPRN PRN IV SEVERE PAIN (7-10 PAIN SCALE) 06/28/24 20:45 06/29/24 00:52 Enoxaparin Sodium (Lovenox) 40 mg DAILY SC 06/28/24 20:45 Nitroglycerin (Ntrostat Sublingual) 0.4 mg Q5MINP PRN SL FOR CHEST PAIN 06/28/24 20:45 Morphine Sulfate 2 mg Q30M PRN IV FOR CHEST PAIN 06/28/24 20:45 Trazodone HCl (Desyrel) 150 mg HS PO 06/29/24 22:00 Lorazepam (Ativan Tablet) 1 mg Q6HP PRN PO ANXIETY 06/28/24 23:15 06/29/24 03:00 Allopurinol (Zyloprim Tablet) 100 mg TID PO 06/29/24 06:00 06/29/24 05:33 Amiodarone HCl (Cordarone Tablet) 200 mg DAILY PO 06/29/24 10:00 Atorvastatin Calcium (Lipitor) 20 mg DAILY PO 06/29/24 10:00 Furosemide (Lasix Tablet) 40 mg DAILY PO 06/29/24 10:00 Pantoprazole Sodium (Protonix Tablet) 40 mg BID PO 06/29/24 10:00 Sucralfate (Carafate Tab) 1 gm BID PO 06/29/24 10:00 Review of Systems A 14-point review of systems is negative unless otherwise noted above Vital Signs Vital Signs Date Time Temp Pulse Resp B/P (MAP) Pulse Ox O2 Delivery O2 Flow Rate FiO2 06/29/24 01:22 53 18 97/57 06/29/24 01:00 98.1 95 98.1 11/1/24 22:32 Room Air* 0 21 Physical Exam Not in acute distress, sitting in bed comfortably. Not using accessory muscles of breathing. Morbidly obese, no carotid bruits. No goiter. Clear to auscultation. Cardiac: Regular, 2 out of 6 systolic murmur in the right lower sternal border. Abdomen is soft and obese. No gross hepatomegaly/mass. Extremities reveal 1+ edema bilaterally. Labs/Diagnostic Data Labs Test 06/28/24 18:24 06/28/24 17:41 06/28/24 17:25 Range/Units Troponin I High Sensitivity 8 </=54 ng/L Urine Color Light-yellow Yellow Urine Clarity Clear Clear Urine pH 7.0 5.0-9.0 Urine Specific [place] 1.008 1.001-1.035 Urine Protein Negative Negative Urine Ketones Negative Negative Urine Blood Negative Negative /uL Urine Nitrite Negative Negative Urine Bilirubin Negative Negative Urine Urobilinogen Normal Negative mg/dL Urine Leukocyte Esterase Negative Negative /uL Urine RBC 1 0 - 3 /hpf Urine WBC 1 0 - 3 /hpf Urine Squamous Epithelial Cells Few <5 /hpf Urine Bacteria None seen None Seen /hpf Urine Glucose Normal Normal mg/dL White Blood Count 14.6 #H 4.4-10.8 10^3/uL Red Blood Count 4.31 L 4.5-5.90 10^6/uL Hemoglobin 13.8 13.5-17.5 g/dL Hematocrit 40.0 L 41.0-53.0 % Mean Corpuscular Volume 92.7 80.0-100.0 fL Mean Corpuscular Hemoglobin 31.9 28.0-32.0 pg Mean Corpuscular Hemoglobin Concent 34.4 32.0-36.0 g/dL Red Cell Distribution Width 13.7 11.8-14.3 % Platelet Count 339 140-450 10^3/uL Mean Platelet Volume 6.9 6.9-10.8 fL Neutrophils (%) (Auto) 79.5 37.0-80.0 % Lymphocytes (%) (Auto) 10.7 10.0-50.0 % Monocytes (%) (Auto) 7.7 0.0-12.0 % Eosinophils (%) (Auto) 1.6 0.0-7.0 % Basophils (%) (Auto) 0.5 0.0-2.0 % Neutrophils # (Auto) 11.6 H 1.6-8.6 10 ^3/uL Lymphocytes # (Auto) 1.6 0.4-5.4 10 ^3/uL Monocytes # (Auto) 1.1 0-1.3 10 ^3/uL Eosinophils # (Auto) 0.2 0-0.8 10 ^3/uL Basophils # (Auto) 0.1 0-0.2 10 ^3/uL Nucleated Red Blood Cells 0.0 % Sodium Level 138 136-145 mmol/L Potassium Level 3.3 L 3.5-5.1 mmol/L Chloride Level 100 98-107 mmol/L Carbon Dioxide Level 27 20-31 mmol/L Anion Gap 11 5-15 Blood Urea Nitrogen 43 H 9-23 mg/dL Creatinine 2.10 H 0.700-1.30 mg/dL Glomerular Filtration Rate Calc 36 >90 mL/min BUN/Creatinine Ratio 20.5 H 10.0-20.0 Serum Glucose 101 74-106 mg/dL Calcium Level 10.3 8.7-10.4 mg/dL Magnesium Level 2.2 1.6-2.6 mg/dL B-Type Natriuretic Peptide 29.23 0-100 pg/mL Plan/Recommendation Assessment/Plan This is a 53-year old male known outside to our practice who initially presented (06/28/2024) with reported chest pain, palpitations, and dizziness. Patient reports he was shopping in [employer] and felt a sudden onset of palpitations resulting in dizziness requiring him to sit down as he reports he nearly passed out. Following the event, he developed an onset of chest pain which he self administered both Aspirin and SL Nitroglycerin with reported improvement in chest pain. Later that day, he reports experiencing another episode of dizziness with near syncope which at that time he called EMS for further assistance. Upon chart review, EKG tracing performed in the field with EMS revealed presence of sustained ventricular tachycardia which the patient denies having underwent shock for. Upon ED arrival, 12-lead electrocardiogram was performed revealing sinus rhythm at 93bpm, QRS of 102ms, QTc of 477ms, with no acute ischemic changes. HS troponin trend is found unremarkable (9, 8, 7). BNP level is found normal at 29.23. D-Dimer is elevated at 1.08. Initial potassium level of 3.3 with an initial magnesium level of 2.2. TSH level is found to be 0.82. Initial creatinine level of 2.1. Initial WBC count of 14.6 which chest imaging and urinalysis were found non-revealing. As the patient initially presented with dizziness and chest pain, Cardiology services have now been involved for cardiac aspects of care. Not in acute distress, sitting in bed comfortably. Not using accessory muscles of breathing. Morbidly obese, no carotid bruits. No goiter. Clear to auscultation. Cardiac: Regular, 2 out of 6 systolic murmur in the right lower sternal border. Abdomen is soft and obese. No gross hepatomegaly/mass. Ext remities reveal 1+ edema bilaterally. Past medical history includes systolic heart failure, morbid obesity, anxiety disorder, DJD, hypertension, GERD, insomnia, carotid atherosclerosis, gout, hyperlipidemia, gastric duodenal ulcer, diverticulosis, hiatal hernia, history of prostate cancer s/p radical prostatectomy (06/27/2022), obstructive sleep apnea and status post its surgery, known history of frequent PVC s/p RFA x 2 (04/06/2023)(10/31/2023), history of appendectomy/tonsillectomy. Has had multiple cardiac catheterization (last in March 2022) which have remained normal. Echocardiogram of May 16, 2022 revealed ejection fraction 45% Echocardiogram of November 21, 2022 (performed in the office), revealed mild concentric left ventricular hypertrophy, LVEF of 45 to 50%, mild biatrial enlargement, aortic root 3.8 cm, mild AI, trace MR/TR/PI. Echocardiogram of March 21, 2023 revealed ejection fraction 45% Left heart catheterization of April 11, 2022 revealed minimal coronary disease and normal EDP. Creatinine: 2.10 - 1.64 Potassium: 3.3 - 3.3 Magnesium: 2.2 TSH: 0.82 Troponin (high sensitive): 9 - 8 - 7 BNP: 29.23 WBC: 14.6 - 12.2 Chest x-ray revealed: IMPRESSION: 1. No radiographic evidence of acute cardiopulmonary disease. EKG revealed: sinus rhythm at 93bpm, QRS of 102ms, QTc of 477ms, with no acute ischemic changes. Telemetry reveals sinus rhythm This is a 53-year old male known outside to our practice who initially presented (06/28/2024) with reported chest pain, palpitations, and dizziness. Patient reports he was shopping in [place] [employer] and felt a sudden onset of palpitations resulting in dizziness requiring him to sit down as he reports he nearly passed out. Following the event, he developed an onset of chest pain which he self administered both Aspirin and SL Nitroglycerin with reported improvement in chest pain. Later that day, he reports experiencing another episode of dizziness with near syncope which at that time he called EMS for further assistance. Upon chart review, EKG tracing performed in the field with EMS revealed presence of sustained ventricular tachycardia which the patient denies having underwent shock for. Upon ED arrival, 12-lead electrocardiogram was performed revealing sinus rhythm at 93bpm, QRS of 102ms, QTc of 477ms, with no acute ischemic changes. HS troponin trend is found unremarkable (9, 8, 7). BNP level is found normal at 29.23. D-Dimer is elevated at 1.08. Initial potassium level of 3.3 with an initial magnesium level of 2.2. TSH level is found to be 0.82. Initial creatinine level of 2.1. Initial WBC count of 14.6 which chest imaging and urinalysis were found non-revealing. As the patient initially presented with dizziness, near syncope, any chest pain, presence of sustained ventricular tachycardia could have contributed to the clinical picture. As there is objective evidence for sustained ventricular tachycardia, patient benefits from undergoing left heart catheterization to assess for any flow-limiting coronary lesions. If coronary revascularization is not warranted, patient benefits from undergoing implantation of AICD secondary to symptomatic sustained ventricular tachycardia for primary prevention agains sudden cardiac . Sustained ventricular tachycardia, symptomatic Chest pain, rule out obstructive coronary artery disease Pre-syncope, likely secondary to underlying ventricular arrhythmia History of PVC's, status post RFA x 2 (04/06/2023)(10/31/2023) Chronic systolic heart failure, without exacerbation Abnormal D-Dimer, rule out presence of PE/DVT Acute kidney injury Hyperlipidemia Leukocytosis Hypokalemia Morbid obesity Cardiac Suggestions for Management: Plan for tentative [facility] Monday (07/01/2024) with Dr. Faulkner Benefits, risks, and alternatives have been discussed at length which he is agreeable to the plan of care Patient to be consented and NPO status at midnight (07/01/2024) Request for VQ scan Request for Carotid Duplex Request for 2D Echocardiogram Request for BLE Venous Duplex Sustain Magnesium level greater than 2.0 Sustain Potassium level greater than 4.0 Follow up renal function and electrolytes Aspirin held 2/2 previous gastroduodenal ulcer (04/2024) Entresto held secondary to JACINTA/soft blood pressures Beta-jason held secondary to soft blood pressures Gentle IV fluid is considered justifiable at present Amiodarone 200mg po once daily Atorvastatin 20mg po daily Proceed with close observation for overt signs of fluid overload Proceed with strict intakes, outputs, and daily weights Proceed with close rate and rhythm surveillance Proceed with close hemodynamic surveillance Proceed with optimized blood pressure control Transfuse to sustain HGB level above 7.0 Management in telemetry Will proceed to follow from a cardiac perspective Further recommendations per clinical progression All available diagnostic labs, EKG's, and images were personally reviewed Patient's status, findings, and plan of care was reviewed and discussed with s upervising physician Dr. Moreno, who is in agreement with current plan of care. Plan of care discussed with and agreed upon by patient / family / primary RN Prognosis: Guarded / Poor Thank you for allowing me to participate in the care of this patient. Further recommendations based on patients clinical course and progression, primary attending, and other consultants. Will continue to follow with primary attending. If you have any questions or concerns, please do not hesitate to contact me. A total of 75 minutes was spent reviewing the patient record, examining the patient, making a diagnostic and therapeutic plan, discussing this plan with medical personnel, following up on diagnostic studies and following the patient for clinical stability excluding any and all procedures. At least 50% of this time was spent in direct, [id number] contact. Plan discussed with: Other (Patient and Primary RN) SUZI MORENO Jun 29, 2024 05:50
[2024-06-29] MEDS ORDERED: ISOS10TA5 PO (08:57)
[2024-06-29] MEDS: PANTOPRAZOLE 40 MG TAB PO SCH (09:01)
[2024-06-29] MEDS: SUCRALFATE 1 GM TAB PO SCH (09:01)
[2024-06-29] MEDS: AMIODARONE HCL 200 MG TAB PO SCH (09:01)
[2024-06-29] MEDS: ATORVASTATIN 20 MG TAB PO SCH (09:01)
[2024-06-29] MEDS: FUROSEMIDE 40 MG TAB PO SCH (09:01)
[2024-06-29 09:58] LABS: Basophils # (auto) 0 10 ^3/uL (0-0.2); Basophils % (auto) 0.3 % (0.0-2.0); Eosinophils # (auto) 0.1 10 ^3/uL (0-0.8); Hematocrit 37.3 % (41.0-53.0); Hemoglobin 12.4 g/dL (13.5-17.5); Lymphocytes # (auto) 0.7 10 ^3/uL (0.4-5.4); Lymphocytes % (auto) 5.6 % (10.0-50.0); Mean Corpuscular Hemoglobin 31.5 pg (28.0-32.0); Mean Corpuscular Hgb Conc. 33.2 g/dL (32.0-36.0); Mean Corpuscular Volume 94.7 fL (80.0-100.0); Monocytes # (auto) 0.7 10 ^3/uL (0-1.3); Neutrophils # (auto) 10.6 10 ^3/uL (1.6-8.6); Neutrophils % (auto) 87.1 % (37.0-80.0); Platelet Count (auto) 273 10^3/uL (140-450); Red Blood Cells 3.94 10^6/uL (4.5-5.90); Red Cell Distribution Width 13.6 % (11.8-14.3); White Blood Cell 12.2 10^3/uL (4.4-10.8)
[2024-06-29 10:16] LABS: Alanine Aminotransferase 12 U/L (7-40); Albumin 4.2 g/dL (3.2-4.8); Alkaline Phosphatase 50 U/L (46-116); Anion Gap 8 (5-15); Aspartate Aminotransferase 8 U/L (13-40); BUN/Creatinine Ratio 18.9 (10.0-20.0); Bilirubin, Total 0.4 mg/dL (0.2-1.0); Calcium 9.4 mg/dL (8.7-10.4); Carbon Dioxide 28 mmol/L (20-31); Chloride 104 mmol/L (98-107); Glucose 135 mg/dL (74-106); Potassium 3.3 mmol/L (3.5-5.1); Sodium 140 mmol/L (136-145); Total Protein 6.5 g/dL (5.7-8.2)
[2024-06-29 10:42] LABS: Blood Urea Nitrogen 31 mg/dL (9-23)
[2024-06-29] MEDS: HYDROcodone-ACET 10/325MG TAB PO PRN (13:05)
[2024-06-29] MEDS: POTASSIUM CHL 20 Meq TABLET PO ONE (13:06)
--- NOTE | 2024-06-29 14:36 | DVH ---
PROCEDURE: US CAROTID DUPLX W COLOR DOP 06/29/2024 10:25 AM INDICATION:dizziness. COMPARISON: None TECHNIQUE: Real-time grayscale and color Doppler images of the neck arteries were obtained with spect ral analysis performed. FINDINGS: RIGHT: Mild atherosclerotic soft plaque identified in the carotid bulb and proximal ICA. Normal spectral wa veforms are seen. ICA peak systolic velocity: 88 cm/s ICA end-diastolic velocity: 23 cm/s ICA/CCA ratios: 1.4 LEFT: atherosclerotic plaque identified in the carotid bulb. Normal spectral waveforms are seen. ICA peak systolic velocity: Mild calcified plaque [id number] cm/s ICA end-diastolic velocity: 28 cm/s ICA/CCA ratios: 1.1 VERTEBRAL ARTERIES: Normal antegrade flow is seen bilaterally. Normal spectral waveforms. IMPRESSION: 1. No hemodynamically significant carotid artery stenosis identified bilaterally. Reference: Radiology 2003; [id number] Normal ICA PSV is <125 cm/sec and no plaque or intimal thickening is visible sonographically additional criteria include ICA/CCA PSV ratio <2.0 and ICA EDV <40 cm/sec <50% ICA stenosis ICA PSV is <125 cm/sec and plaque or intimal thickening is visible sonographically additional criteria include ICA/CCA PSV ratio <2.0 and ICA EDV <40 cm/sec 50-69% ICA stenosis ICA PSV is 125-230 cm/sec and plaque is visible sonographically additional criteria include ICA/CCA PSV ratio of 2.0-4.0 and ICA EDV of 40-100 cm/sec 70% ICA stenosis but less than near occlusion ICA PSV is >230 cm/sec and visible plaque and luminal narrowing are seen at [email or web address] and color Dopp ler ultrasound (the higher the Doppler parameters lie above the threshold of 230 cm/sec, the greater the likelihood of severe disease) additional criteria include ICA/CCA PSV ratio >4 and ICA EDV >100 cm/sec
[2024-06-29 15:43] LABS: INR 1.08 (0.9-1.15); Partial Thromboplastin Time 25.5 SEC (24.5-34.5); Prothrombin Time 11.4 sec (9.3-11.8)
[2024-06-29 16:09] LABS: Urine Bacteria None Seen /hpf (None Seen)
[2024-06-29 16:20] LABS: Urine Blood Negative /uL (Negative); Urine Clarity Clear (Clear); Urine Color Colorless (Yellow); Urine Protein, UAD Negative (Negative); Urine Specific Gravity 1.006 (1.001-1.035); Urine Urobilinogen Normal (Negative); Urine WBC <1 /hpf (0 - 3); Urine pH 5.5 (5.0-9.0)
[2024-06-29 16:34] LABS: Amphetamine Screen, Urine Neg (NEGATIVE); Barbiturate Scree,Urine Neg (NEGATIVE); Benzodiazephine Screen, Urine Neg (NEGATIVE); Cocaine Screen, Urine Neg (NEGATIVE); Opiate Scree,Urine Neg (NEGATIVE)
[2024-06-29 16:35] LABS: Cannabinoid Screen, Urine Neg (NEGATIVE); Phencyclidine Screen, Urine Neg (NEGATIVE)
--- NOTE | 2024-06-29 16:41 | DVHPN2 ---
Progress Note - Dictate Date Seen: Jun 29, 2024 Medical Necessity Reason Pt with a Central, PICC or Fol: No Subjective Patient care transferred to [facility] this afternoon. Patient's chart is reviewed and seen and evaluated. Admitted overnight for chest discomfort. Patient MRSA screen for nares is positive. Patient once his trazodone and lorazepam at night as he takes at home for sleep. vital signs Vital Sign Date Time Temp Pulse Resp B/P (MAP) Pulse Ox O2 Delivery O2 Flow Rate FiO2 06/29/24 13:00 98.2 69 16 105/63 (77) 98 98.2 06/29/24 08:00 Room Air* 0 21 Total Intake and Output 06/28/24 06/28/24 06/29/24 15:00 23:00 07:00 Intake Total 700 ml Balance 700 ml medications Current Medications Medications Dose Ordered Sig/Yesica Route Start Time Stop Time Status Last Admin Dose Admin Sodium Chloride 10 ml Q8HR IV 06/28/24 22:00 06/29/24 13:04 10 ML Ondansetron HCl 4 mg Q4HP PRN IV 06/28/24 20:45 Morphine Sulfate 2 mg Q4HPRN PRN IV 06/28/24 20:45 06/29/24 08:51 2 MG Enoxaparin Sodium 40 mg DAILY SC 06/28/24 20:45 Nitroglycerin 0.4 mg Q5MINP PRN SL 06/28/24 20:45 Morphine Sulfate 2 mg Q30M PRN IV 06/28/24 20:45 Trazodone HCl 150 mg HS PO 06/29/24 22:00 Lorazepam 1 mg Q6HP PRN PO 06/28/24 23:15 06/29/24 09:02 1 MG Allopurinol 100 mg TID PO 06/29/24 06:00 06/29/24 13:06 100 MG Amiodarone HCl 200 mg DAILY PO 06/29/24 10:00 06/29/24 09:01 200 MG Atorvastatin Calcium 20 mg DAILY PO 06/29/24 10:00 06/29/24 09:01 20 MG Furosemide 40 mg DAILY PO 06/29/24 10:00 06/29/24 09:01 40 MG Pantoprazole Sodium 40 mg BID PO 06/29/24 10:00 06/29/24 09:01 40 MG Sucralfate 1 gm BID PO 06/29/24 10:00 06/29/24 09:01 1 GM Acetaminophen/ Hydrocodone Bitart 1 tab Q6HP PRN PO 06/29/24 12:15 06/29/24 13:05 1 TAB Lidocaine HCl 5 ml Q8HPRN PRN TOP 06/29/24 12:15 objective Comfortable in bed. Family at bedside. No acute distress laboratory and microbiology Laboratory Tests 06/29/24 09:28 Test 06/29/24 09:28 Range/Units Serum Glucose 135 H 74-106 mg/dL Assessment/Plan We will continue his home trazodone and lorazepam dose at night for sleep. Bactroban ointment per nares for MRSA screen positive. Continue rest of supportive care and treatment. Follow labs. Otherwise follow clinical management per clinical course and recommendations from Cardiology. Problems(with codes): (1) Acute chest pain (2) PVCs (premature ventricular contractions) (3) JACINTA (acute kidney injury) Plan discussed with: Patient, Other ARIEL KELLEY MD Jun 29, 2024 16:41
--- NOTE | 2024-06-29 16:45 | DVH ---
Bilateral lower extremity venous duplex Clinical History: swelling/pain Comparison: US BILAT LOWER DVT on DOS: 03/22/23 Technique: Duplex Doppler evaluation of the deep venous systems of both lower extremities from the common femora l veins to the popliteal veins including color Doppler and spectral/pulsed waveform analysis was perf ormed. Findings: RIGHT SIDE: The common femoral vein demonstrates appropriate compressibility and waveform variability. There is compressibility/patency of the great saphenous vein at the proximal thigh. The femoral vein demonstrates appropriate compressibility and waveform variability. The deep femoral vein demonstrates appropriate compressibility and waveform variability. The popliteal vein demonstrates appropriate compressibility and waveform variability. There is normal compressibility at the tibioperoneal trunk. LEFT SIDE: The common femoral vein demonstrates appropriate compressibility and waveform variability. There is compressibility/patency of the great saphenous vein at the proximal thigh. The femoral vein demonstrates appropriate compressibility and waveform variability. The deep femoral vein demonstrates appropriate compressibility and waveform variability. The popliteal vein demonstrates appropriate compressibility and waveform variability. There is normal compressibility at the tibioperoneal trunk. Impression: 1. No right or left femoropopliteal venous thrombosis. 2. Left inguinal lymph node measuring 2.3 cm
[2024-06-29 17:04] LABS: Triglycerides 122 mg/dL (< 150)
[2024-06-29 17:05] LABS: LDL Cholesterol 51 mg/dL (< 100)
[2024-06-29 17:06] LABS: Cholesterol 106 mg/dL (< 200); HDL Cholesterol 36 mg/dL (40-59)
[2024-06-29] MEDS: MAGNESIUM OXIDE 400 MG TAB PO SCH (20:59)
[2024-06-29] MEDS: traZODone HCL 50 MG TAB PO SCH (20:59)
[2024-06-29] MEDS: LORazepam 0.5 MG TAB PO SCH (20:59)
[2024-06-29] MEDS: MUPIROCIN 2% OINT 15gm or 22gm FOR MRSA NARES EACHNOSTRI SCH (21:08)
[2024-06-30] VITALS (11 sets, daily range): BP systolic 74–147; BP diastolic 45–79; PULSE 63–88; RESP 16–20; TEMP 97.9–99; O2SAT 97–100
--- NOTE | 2024-06-30 05:02 | DVHPN2 ---
Progress Note - Dictate Date Seen: Jun 30, 2024 Medical Necessity Reason Pt with a Central, PICC or Fol: No Medical Necessity Reason Patient seen and examined at the bedside within telemetry. After rounds, primary RN paged as patient had another episode of chest pain. EKG was performed during the event revealing patient was again found to be in a wide-complex tachycardia. Patient was administered IV Morphine for chest pain as per primary RN. Orders given to start Amiodarone infusion per Pharmacy Protocol. Trazodone was also discontinued as it may prolong QT interval with concurrent Amiodarone therapy. Patient converted back to sinus rhythm. Repeat EKG post conversion revealed sinus rhythm at 85bpm, no ST segment changes, with a QTC interval of 484ms. vital signs Vital Sign Date Time Temp Pulse Resp B/P (MAP) Pulse Ox O2 Delivery O2 Flow Rate FiO2 06/29/24 21:00 97.6 65 18 97/52 (67) 94 97.6 06/29/24 20:00 Room Air* 0 21 Total Intake and Output 06/29/24 06/29/24 06/30/24 15:00 23:00 07:00 Intake Total 800 ml Balance 800 ml medications Current Medications Medications Dose Ordered Sig/Yesica Route Start Time Stop Time Status Last Admin Dose Admin Sodium Chloride 10 ml Q8HR IV 06/28/24 22:00 06/29/24 21:11 10 ML Ondansetron HCl 4 mg Q4HP PRN IV 06/28/24 20:45 Morphine Sulfate 2 mg Q4HPRN PRN IV 06/28/24 20:45 06/29/24 08:51 2 MG Enoxaparin Sodium 40 mg DAILY SC 06/28/24 20:45 Nitroglycerin 0.4 mg Q5MINP PRN SL 06/28/24 20:45 Morphine Sulfate 2 mg Q30M PRN IV 06/28/24 20:45 Trazodone HCl 150 mg HS PO 06/29/24 22:00 06/29/24 20:59 150 MG Allopurinol 100 mg TID PO 06/29/24 06:00 06/29/24 20:59 100 MG Amiodarone HCl 200 mg DAILY PO 06/29/24 10:00 06/29/24 09:01 200 MG Atorvastatin Calcium 20 mg DAILY PO 06/29/24 10:00 06/29/24 09:01 20 MG Furosemide 40 mg DAILY PO 06/29/24 10:00 06/29/24 09:01 40 MG Pantoprazole Sodium 40 mg BID PO 06/29/24 10:00 06/29/24 20:59 40 MG Sucralfate 1 gm BID PO 06/29/24 10:00 06/29/24 20:59 1 GM Acetaminophen/ Hydrocodone Bitart 1 tab Q6HP PRN PO 06/29/24 12:15 06/30/24 03:33 1 TAB Lidocaine HCl 5 ml Q8HPRN PRN TOP 06/29/24 12:15 Lorazepam 1 mg HS PO 06/29/24 22:00 06/29/24 20:59 1 MG Mupirocin 1 applic BID EACHNOSTRI 06/29/24 22:00 07/04/24 21:59 Magnesium Oxide 400 mg BID PO 06/29/24 22:00 06/29/24 20:59 400 MG laboratory and microbiology Laboratory Tests 06/29/24 09:28 Test 06/29/24 09:28 Range/Units Serum Glucose 135 H 74-106 mg/dL Assessment/Plan Assessment/Plan Plan/Recommendation Assessment/Plan This is a 53-year old male known outside to our practice who initially presented (06/28/2024) with reported chest pain, palpitations, and dizziness. Patient reports he was shopping in [employer] and felt a sudden onset of palpitations resulting in dizziness requiring him to sit down as he reports he nearly passed out. Following the event, he developed an onset of chest pain which he self administered both Aspirin and SL Nitroglycerin with reported improvement in chest pain. Later that day, he reports experiencing another episode of dizziness with near syncope which at that time he called EMS for further assistance. Upon chart review, EKG tracing performed in the field with EMS revealed presence of sustained ventricular tachycardia which the patient denies having underwent shock for. Upon ED arrival, 12-lead electrocardiogram was performed revealing sinus rhythm at 93bpm, QRS of 102ms, QTc of 477ms, with no acute ischemic changes. HS troponin trend is found unremarkable (9, 8, 7). BNP level is found normal at 29.23. D-Dimer is elevated at 1.08. Initial potassium level of 3.3 with an initial magnesium level of 2.2. TSH level is found to be 0.82. Initial creatinine level of 2.1. Initial WBC count of 14.6 which chest imaging and urinalysis were found non-revealing. As the patient initially presented with dizziness and chest pain, Cardiology services have now been involved for cardiac aspects of care. Not in acute distress, sitting in bed comfortably. Not using accessory muscles of breathing. Morbidly obese, no carotid bruits. No goiter. Clear to auscultation. Cardiac: Regular, 2 out of 6 systolic murmur in the right lower sternal border. Abdomen is soft and obese. No gross hepatomegaly/mass. Extremities reveal 1+ edema bilaterally. Past medical history includes systolic heart failure, morbid obesity, anxiety disorder, DJD, hypertension, GERD, insomnia, carotid atherosclerosis, gout, hyperlipidemia, gastric duodenal ulcer, diverticulosis, hiatal hernia, history of prostate cancer s/p radical prostatectomy (06/27/2022), obstructive sleep apnea and status post its surgery, known history of frequent PVC s/p RFA x 2 (04/06/2023)(10/31/2023), history of appendectomy/tonsillectomy. Has had multiple cardiac catheterization (last in March 2022) which have remained normal. Echocardiogram of May 16, 2022 revealed ejection fraction 45% Echocardiogram of November 21, 2022 (performed in the office), revealed mild concentric left ventricular hypertrophy, LVEF of 45 to 50%, mild biatrial enlargement, aortic root 3.8 cm, mild AI, trace MR/TR/PI. Echocardiogram of March 21, 2023 revealed ejection fraction 45% Left heart catheterization of April 11, 2022 revealed minimal coronary disease and normal EDP. Creatinine: 2.10 - 1.64 Potassium: 3.3 - 3.3 Magnesium: 2.2 TSH: 0.82 Troponin (high sensitive): 9 - 8 - 7 BNP: 29.23 WBC: 14.6 - 12.2 Chest x-ray revealed: IMPRESSION: 1. No radiographic evidence of acute cardiopulmonary disease. Carotid Duplex revealed: IMPRESSION: 1. No hemodynamically significant carotid artery stenosis identified bilaterally. BLE Venous Duplex revealed: Impression: 1. No right or left femoropopliteal venous thrombosis. 2. Left inguinal lymph node measuring 2.3 cm EKG revealed: sinus rhythm at 93bpm, QRS of 102ms, QTc of 477ms, with no acute ischemic changes. Telemetry reveals predominately sinus rhythm This is a 53-year old male known outside to our practice who initially presented (06/28/2024) with reported chest pain, palpitations, and dizziness. Patient reports he was shopping in [place] and felt a sudden onset of palpitations resulting in dizziness requiring him to sit down as he reports he nearly passed out. Following the event, he developed an onset of chest pain which he self administered both Aspirin and SL Nitroglycerin with reported improvement in chest pain. Later that day, he reports experiencing another episode of dizziness with near syncope which at that time he called EMS for further assistance. Upon chart review, EKG tracing performed in the field with EMS revealed presence of sustained ventricular tachycardia which the patient denies having underwent shock for. Upon ED arrival, 12-lead electrocardiogram was performed revealing sinus rhythm at 93bpm, QRS of 102ms, QTc of 477ms, with no acute ischemic changes. HS troponin trend is found unremarkable (9, 8, 7). BNP level is found normal at 29.23. D-Dimer is elevated at 1.08. Initial potassium level of 3.3 with an initial magnesium level of 2.2. TSH level is found to be 0.82. Initial creatinine level of 2.1. Initial WBC count of 14.6 which chest imaging and urinalysis were found non-revealing. As the patient initially presented with dizziness, near syncope, any chest pain, presence of sustained ventricular tachycardia could have contributed to the clinical picture. As there is objective evidence for sustained ventricular tachycardia, patient benefits from undergoing left heart catheterization to assess for any flow-limiting coronary lesions. If coronary revascularization is not warranted, patient benefits from undergoing implantation of AICD secondary to symptomatic sustained ventricular tachycardia for primary prevention agains sudden cardiac . Sustained ventricular tachycardia, symptomatic Chest pain, rule out obstructive coronary artery disease Pre-syncope, likely secondary to underlying ventricular arrhythmia History of PVC's, status post RFA x 2 (04/06/2023)(10/31/2023) Chronic systolic heart failure, without exacerbation Abnormal D-Dimer, rule out presence of PE/DVT Acute kidney injury Hyperlipidemia Leukocytosis Hypokalemia Morbid obesity Cardiac Suggestions for Management: Plan for tentative [facility] Monday (07/01/2024) with Dr. Faulkner Benefits, risks, and alternatives have been discussed at length which he is agreeable to the plan of care Patient to be consented and NPO status at midnight (07/01/2024) Request for VQ scan Request for 2D Echocardiogram Sustain Magnesium level greater than 2.0 Sustain Potassium level greater than 4.0 Follow up renal function and electrolytes Trazodone discontinue as it may provoke QT prolongation with concurrent Amiodarone therapy Aspirin held 2/2 previous gastroduodenal ulcer (04/2024) Entresto held secondary to JACINTA/soft blood pressures Beta-jason held secondary to soft blood pressures Gentle IV fluid is considered justifiable at present Start Amiodarone infusion per pharmacy protocol Amiodarone 200mg po once daily Atorvastatin 20mg po daily Proceed with close observation for overt signs of fluid overload Proceed with strict intakes, outputs, and daily weights Proceed with close rate and rhythm surveillance Proceed with close hemodynamic surveillance Proceed with optimized blood pressure control Transfuse to sustain HGB level above 7.0 Management in telemetry Will proceed to follow from a cardiac perspective Further recommendations per clinical progression All available diagnostic labs, EKG's, and images were personally reviewed Patient's status, findings, and plan of care was reviewed and discussed with supervising physician Dr. Moreno, who is in agreement with current plan of care. Plan of care discussed with and agreed upon by patient / primary RN Prognosis: Guarded Thank you for allowing me to participate in the care of this patient. Further recommendations based on patients clinical course and progression, primary attending, and other consultants. Will continue to follow with primary attending. If you have any questions or concerns, please do not hesitate to contact me. A total of 75 minutes was spent reviewing the patient record, examining the patient, making a diagnostic and therapeutic plan, discussing this plan with medical personnel, following up on diagnostic studies and following the patient for clinical stability excluding any and all procedures. At least 50% of this time was spent in direct, [id number] contact. Plan discussed with: Other (Patient and Primary RN) Plan discussed with: Patient (Patient and Primary RN) SUZI MORENO Jun 30, 2024 05:02
[2024-06-30] MEDS: MORPHINE SULFATE INJ 2 MG/ml SYRG IV PRN (13:27)
[2024-06-30] MEDS: AMIODARONE 450mg/250ml AE 250 ML IV SCH ×2 (13:43→22:14)
[2024-06-30] MEDS: AMIODARONE BOLUS KIT 100 ML IV ONE (13:55)
--- NOTE | 2024-06-30 15:57 | DVH ---
CLINICAL INDICATION: Pain TECHNIQUE: 2 radiographic views of the left foot were obtained. Comparison: None FINDINGS/IMPRESSION: There is no evidence of acute fracture or dislocation. Dorsal and plantar calcaneal enthesophytes visualized. The visualized joint space is well maintained. The alignment is anatomical. There is no radiopaque foreign body.
--- NOTE | 2024-06-30 16:10 | DVHPN2 ---
Subjective Seen and evaluated by photovoltaic fabrication technician. Patient is on amiodarone drip for heart rate/AFib. He is scheduled for left heart catheterization for tomorrow Changes from previous H/P or p: No Changes Eyes: No Pain, No Vision change, No Conjunctivae inflammation, No Eyelid inflammation, No Other, No Redness ENT: No Ear pain, No Ear discharge, No Nose pain, No Nose discharge, No Nose congestion, No Mouth pain, No Mouth swelling, No Throat pain, No Throat swelling, No Other Cardiovascular: Chest Pain, Palpitations, Lt Headedness Respiratory: Shortness of breath, SOB with excertion Gastrointestinal: Nausea Genitourinary: No Dysuria, No Frequency, No Incontinence, No Hematuria, No Retention, No Other Musculoskeletal: No other, No neck pain, No shoulder pain, No arm pain, No back pain, No hand pain, No leg pain, No foot pain Skin: No Rash, No Lesions, No Jaundice, No Bruising, No Other Objective Vitals Vital Signs Date Time Temp Pulse Resp B/P (MAP) Pulse Ox O2 Delivery O2 Flow Rate FiO2 06/30/24 14:06 87 119/69 (86) 06/30/24 13:48 22 06/30/24 13:00 99.0 97 99.0 06/30/24 08:00 Room Air* 0 21 Intake/Output Intake and Output 06/30/24 07:00 Intake Total 1215 ml Output Total 300 ml Balance 915 ml Intake Oral 1215 ml Output Urine Total 300 ml # Voids 2 # Bowel Movements 1 Exam Alert awake oriented x3. Comfortable in bed without distress. HEENT neck supple no JVD. Heart irregular rate and rhythm S1-S2. Lungs fair air movement without rales wheezes. Abdomen soft obese positive bowel sounds. Nontender. Extremities no edema positive pulses Medications Current Medications Medications Dose Ordered Sig/Yesica Route Start Time Stop Time Status Last Admin Dose Admin Sodium Chloride 10 ml Q8HR IV 06/28/24 22:00 06/30/24 05:57 10 ML Ondansetron HCl 4 mg Q4HP PRN IV 06/28/24 20:45 Morphine Sulfate 2 mg Q4HPRN PRN IV 06/28/24 20:45 06/30/24 06:16 2 MG Enoxaparin Sodium 40 mg DAILY SC 06/28/24 20:45 Nitroglycerin 0.4 mg Q5MINP PRN SL 06/28/24 20:45 Morphine Sulfate 2 mg Q30M PRN IV 06/28/24 20:45 06/30/24 13:27 2 MG Allopurinol 100 mg TID PO 06/29/24 06:00 06/30/24 15:09 100 MG Amiodarone HCl 200 mg DAILY PO 06/29/24 10:00 06/30/24 09:42 200 MG Atorvastatin Calcium 20 mg DAILY PO 06/29/24 10:00 06/30/24 09:42 20 MG Furosemide 40 mg DAILY PO 06/29/24 10:00 06/30/24 09:42 40 MG Pantoprazole Sodium 40 mg BID PO 06/29/24 10:00 06/30/24 09:42 40 MG Sucralfate 1 gm BID PO 06/29/24 10:00 06/30/24 09:42 1 GM Acetaminophen/ Hydrocodone Bitart 1 tab Q6HP PRN PO 06/29/24 12:15 06/30/24 09:42 1 TAB Lidocaine HCl 5 ml Q8HPRN PRN TOP 06/29/24 12:15 Lorazepam 1 mg HS PO 06/29/24 22:00 06/29/24 20:59 1 MG Mupirocin 1 applic BID EACHNOSTRI 06/29/24 22:00 07/04/24 21:59 06/30/24 09:41 1 APPLIC Magnesium Oxide 400 mg BID PO 06/29/24 22:00 06/30/24 09:42 400 MG Amiodarone HCl 250 ml @ 33.333 mls/ hr Q7H30M IV 06/30/24 13:45 06/30/24 19:44 06/30/24 13:43 33.333 MLS/HR Amiodarone HCl 250 ml @ 16.667 mls/ hr Q15H IV 06/30/24 19:45 Sodium Chloride 1,000 ml @ 75 mls/hr [id number] IV 06/30/24 14:45 UNV Laboratory Results Laboratory Tests 06/29/24 09:28 Urinalysis Test 06/29/24 15:35 Urine Color Colorless (Yellow) Urine Clarity Clear (Clear) Urine pH 5.5 (5.0-9.0) Urine Specific [place] 1.006 (1.001-1.035) Urine Protein Negative (Negative) Urine Ketones Negative (Negative) Urine Blood Negative /uL (Negative) Urine Nitrite Negative (Negative) Urine Bilirubin Negative (Negative) Urine Urobilinogen Normal mg/dL (Negative) Urine Leukocyte Esterase Negative /uL (Negative) Urine RBC <1 /hpf (0 - 3) Urine WBC <1 /hpf (0 - 3) Urine Squamous Epithelial Cells Few /hpf (<5) Urine Bacteria None seen /hpf (None Seen) Urine Glucose Normal mg/dL (Normal) Microbiology Microbiology Date/Time Source Procedure Growth Status 06/29/24 06:00 Nose MRSA Screen - Final Methicillin Resistant S.aureus Complete Labs and/or images reviewed: Labs reviewed by me Assessment/Plan Assessment/Plan Continue amiodarone drip for AFib. Continue rest of his cardiac medications. Patient once he has a Ativan twice a day he was supposed to at bedtime. Further clinical management per clinical course and Cardiology recommendations. We will make him NPO after midnight except medications for anticipated left heart catheterization tomorrow. Plan discussed with: Other My Orders Orders - ARIEL KELLEY MD Procedure Category Date Status Time Lorazepam Tablet PHA 06/29/24 In Process (Ativan Tablet) 22:00 Mupirocin 2% Oint PHA 06/29/24 In Process Mrsa Nares (Bactroban 22:00 Magnesium LAB 06/30/24 Logged 04:00 Magnesium Oxide PHA 06/29/24 In Process Tablet (Mag-Ox Tablet) 22:00 Type And Screen BBK 06/30/24 Logged 10:08 Npo After Midnight DIET 06/30/24 Transmitted Dinner Npo Except For KOSTAS 06/30/24 In Process Medications 14:42 L Foot 2 View Xray XY 06/30/24 Resulted 14:42 Problem List: (1) SVT (supraventricular tachycardia) (2) Acute chest pain (3) JACINTA (acute kidney injury) Date of Service: Jun 30, 2024 Billing Provider: ARIEL KELLEY MD Common Visit Codes: [id number] INP/OBS CARE(MOD) ARIEL KELLEY MD Jun 30, 2024 16:10
[2024-06-30 16:46] LABS: Basophils # (auto) 0.1 10 ^3/uL (0-0.2); Basophils % (auto) 0.6 % (0.0-2.0); Eosinophils # (auto) 0.2 10 ^3/uL (0-0.8); Eosinophils % (auto) 1.5 % (0.0-7.0); Hematocrit 36.2 % (41.0-53.0); Hemoglobin 12.2 g/dL (13.5-17.5); Lymphocytes # (auto) 1.1 10 ^3/uL (0.4-5.4); Lymphocytes % (auto) 10.3 % (10.0-50.0); Mean Corpuscular Hemoglobin 31.9 pg (28.0-32.0); Mean Corpuscular Hgb Conc. 33.8 g/dL (32.0-36.0); Mean Corpuscular Volume 94.2 fL (80.0-100.0); Monocytes % (auto) 9.8 % (0.0-12.0); Neutrophils # (auto) 8.3 10 ^3/uL (1.6-8.6); Neutrophils % (auto) 77.8 % (37.0-80.0); Platelet Count (auto) 274 10^3/uL (140-450); Red Blood Cells 3.84 10^6/uL (4.5-5.90); Red Cell Distribution Width 13.6 % (11.8-14.3); White Blood Cell 10.7 10^3/uL (4.4-10.8)
[2024-06-30] MEDS: SODIUM CHLORIDE 0.9% 1,000 ML IV SCH (16:51)
[2024-06-30 17:02] LABS: Alanine Aminotransferase 12 U/L (7-40); Albumin 4.1 g/dL (3.2-4.8); Alkaline Phosphatase 48 U/L (46-116); Anion Gap 7 (5-15); Aspartate Aminotransferase 10 U/L (13-40); BUN/Creatinine Ratio 16.5 (10.0-20.0); Bilirubin, Total 0.4 mg/dL (0.2-1.0); Blood Urea Nitrogen 26 mg/dL (9-23); Calcium 9.4 mg/dL (8.7-10.4); Carbon Dioxide 30 mmol/L (20-31); Chloride 103 mmol/L (98-107); Glucose 120 mg/dL (74-106); Potassium 2.7 mmol/L (3.5-5.1); Sodium 140 mmol/L (136-145); Total Protein 6.6 g/dL (5.7-8.2)
[2024-06-30] MEDS: POTASSIUM CHLORIDE 20 MEQ, LIDOCAINE 1% (LOCAL ANESTH.) 2 ML in SODIUM CHL 0.9% 100 ML IV ONE (18:27)
[2024-06-30] MEDS: POTASSIUM CHL 20 Meq TABLET PO ONE (18:27)
[2024-06-30] MEDS: ACETYLCYSTEINE ORAL for CIN 20%(200MG/ML) 4ML PO SCH (21:51)
[2024-07-01] VITALS (21 sets, daily range): BP systolic 106–163; BP diastolic 46–80; PULSE 55–79; RESP 12–20; TEMP 98.3–99.4; O2SAT 95–100
[2024-07-01 06:09] LABS: Basophils # (auto) 0.1 10 ^3/uL (0-0.2); Basophils % (auto) 0.5 % (0.0-2.0); Eosinophils # (auto) 0.2 10 ^3/uL (0-0.8); Eosinophils % (auto) 1.5 % (0.0-7.0); Hematocrit 38.6 % (41.0-53.0); Hemoglobin 12.6 g/dL (13.5-17.5); Lymphocytes % (auto) 8.7 % (10.0-50.0); Mean Corpuscular Hemoglobin 31.1 pg (28.0-32.0); Mean Corpuscular Hgb Conc. 32.8 g/dL (32.0-36.0); Monocytes # (auto) 0.9 10 ^3/uL (0-1.3); Monocytes % (auto) 8.2 % (0.0-12.0); Neutrophils # (auto) 9.1 10 ^3/uL (1.6-8.6); Neutrophils % (auto) 81.1 % (37.0-80.0); Platelet Count (auto) 280 10^3/uL (140-450); Red Blood Cells 4.06 10^6/uL (4.5-5.90); Red Cell Distribution Width 13.6 % (11.8-14.3); White Blood Cell 11.2 10^3/uL (4.4-10.8)
[2024-07-01 06:30] LABS: Alanine Aminotransferase 11 U/L (7-40); Alkaline Phosphatase 49 U/L (46-116); Anion Gap 7 (5-15); BUN/Creatinine Ratio 15.7 (10.0-20.0); Blood Urea Nitrogen 22 mg/dL (9-23); Calcium 9.7 mg/dL (8.7-10.4); Carbon Dioxide 28 mmol/L (20-31); Chloride 105 mmol/L (98-107); Glucose 95 mg/dL (74-106); Magnesium 2.3 mg/dL (1.6-2.6); Potassium 3.6 mmol/L (3.5-5.1); Sodium 140 mmol/L (136-145)
[2024-07-01 06:31] LABS: Albumin 4.6 g/dL (3.2-4.8); Aspartate Aminotransferase 10 U/L (13-40)
[2024-07-01 06:32] LABS: Bilirubin, Total 0.6 mg/dL (0.2-1.0); Total Protein 6.9 g/dL (5.7-8.2)
--- NOTE | 2024-07-01 08:00 | DVHSR ---
APPROVED REPORT EXAM: LIMITED Two-dimensional and M-mode echocardiogram with Doppler and color Doppler. Blood Pressure: 100/58 mmHg INDICATION Chest Pain RISK FACTORS Obesity: Height: 5'11", Weight: 240 DIMENSIONS LVDd5.3 (3.8-5.7cm)LA (2D) (1.9-4.0cm)Aortic Root (2.0-3.7cm) LVDs3.5 (2.5-4.0cm)LA (MM) (1.9-4.0cm)Aortic Cusp Exc (1.5-2.0cm) EF (%) 60.0 (55-70%)Rt. Atrium (1.9-4.0cm)Asc. Aorta cm IVSd1.2 (0.7-1.1cm)RV (D) (1.8-2.4cm) PWd1.2 (0.7-1.1cm) Mitral Valve MitralMitral Stenosis E/A ratio0.02D MVAcm2 Tricuspid Valve TR Velocity2.34m/s [id number] Other Information Technically limited study due to repeat to eval ef. Conclusion Left ventricle: Mild concentric left ventricular hypertrophy was seen. LVEF was 60-65%. There was n o gross wall motion abnormality. Right ventricle: Right ventricle is normal sized with normal systolic function. Both atria were nor mal sized. Aortic valve: Aortic valve was not well-visualized. There was no aortic insufficiency/stenosis. The re was trivial mitral regurgitation. There was trivial tricuspid regurgitation. Pulmonary valve was not well visualized. Right ventricular systolic pressure was assessed around 30 mm Hg. There was trace pericardial effusi on.
--- NOTE | 2024-07-01 08:08 | DVHPN2 ---
Progress Note - Dictate Date Seen: Jul 01, 2024 Medical Necessity Reason Pt with a Central, PICC or Fol: No vital signs Vital Sign Date Time Temp Pulse Resp B/P (MAP) Pulse Ox O2 Delivery O2 Flow Rate FiO2 07/01/24 06:00 58 16 142/81 07/01/24 05:00 98.3 95 98.3 06/30/24 19:54 Room Air* 0 21 Total Intake and Output 06/30/24 06/30/24 07/01/24 15:00 23:00 07:00 Intake Total 1241.665 ml Output Total 600 ml Balance 1241.665 ml -600 ml medications Current Medications Medications Dose Ordered Sig/Yesica Route Start Time Stop Time Status Last Admin Dose Admin Sodium Chloride 10 ml Q8HR IV 06/28/24 22:00 07/01/24 04:50 10 ML Ondansetron HCl 4 mg Q4HP PRN IV 06/28/24 20:45 Morphine Sulfate 2 mg Q4HPRN PRN IV 06/28/24 20:45 07/01/24 05:30 2 MG Enoxaparin Sodium 40 mg DAILY SC 06/28/24 20:45 Nitroglycerin 0.4 mg Q5MINP PRN SL 06/28/24 20:45 Morphine Sulfate 2 mg Q30M PRN IV 06/28/24 20:45 06/30/24 13:27 2 MG Allopurinol 100 mg TID PO 06/29/24 06:00 06/30/24 21:51 100 MG Amiodarone HCl 200 mg DAILY PO 06/29/24 10:00 06/30/24 09:42 200 MG Atorvastatin Calcium 20 mg DAILY PO 06/29/24 10:00 06/30/24 09:42 20 MG Furosemide 40 mg DAILY PO 06/29/24 10:00 06/30/24 09:42 40 MG Pantoprazole Sodium 40 mg BID PO 06/29/24 10:00 06/30/24 21:51 40 MG Sucralfate 1 gm BID PO 06/29/24 10:00 06/30/24 21:51 1 GM Acetaminophen/ Hydrocodone Bitart 1 tab Q6HP PRN PO 06/29/24 12:15 06/30/24 22:37 1 TAB Lidocaine HCl 5 ml Q8HPRN PRN TOP 06/29/24 12:15 Lorazepam 1 mg HS PO 06/29/24 22:00 06/30/24 21:51 1 MG Mupirocin 1 applic BID EACHNOSTRI 06/29/24 22:00 07/04/24 21:59 06/30/24 21:53 1 APPLIC Magnesium Oxide 400 mg BID PO 06/29/24 22:00 06/30/24 21:51 400 MG Amiodarone HCl 250 ml @ 16.667 mls/ hr Q15H IV 06/30/24 19:45 06/30/24 22:14 16.667 MLS/HR Sodium Chloride 1,000 ml @ 75 mls/hr [id number] IV 06/30/24 14:45 06/30/24 16:51 75 MLS/HR Acetylcysteine 1,200 mg BID PO 06/30/24 22:00 07/02/24 21:59 06/30/24 21:51 1,200 MG Lorazepam 1 mg Q8HP PRN IV 06/30/24 17:15 laboratory and microbiology Laboratory Tests 07/01/24 05:14 Test 07/01/24 05:14 Range/Units Serum Glucose 95 74-106 mg/dL Assessment/Plan This is a 53-year old male known outside to our practice who initially presented (06/28/2024) with reported chest pain, palpitations, and dizziness. Patient reports he was shopping in [employer] and felt a sudden onset of palpitations resulting in dizziness requiring him to sit down as he reports he nearly passed out. Following the event, he developed an onset of chest pain which he self administered both Aspirin and SL Nitroglycerin with reported improvement in chest pain. Later that day, he reports experiencing another episode of dizziness with near syncope which at that time he called EMS for further assistance. Upon chart review, EKG tracing performed in the field with EMS revealed presence of sustained ventricular tachycardia which the patient denies having underwent shock for. Upon ED arrival, 12-lead electrocardiogram was performed revealing sinus rhythm at 93bpm, QRS of 102ms, QTc of 477ms, with no acute ischemic changes. HS troponin trend is found unremarkable (9, 8, 7). BNP level is found normal at 29.23. D-Dimer is elevated at 1.08. Initial potassium level of 3.3 with an initial magnesium level of 2.2. TSH level is found to be 0.82. Initial creatinine level of 2.1. Initial WBC count of 14.6 which chest imaging and urinalysis were found non-revealing. As the patient initially presented with dizziness and chest pain, Cardiology services have now been involved for cardiac aspects of care. Not in acute distress, sitting in bed comfortably. Not using accessory muscles of breathing. Morbidly obese, no carotid bruits. No goiter. Clear to auscultation. Cardiac: Regular, 2 out of 6 systolic murmur in the right lower sternal border. Abdomen is soft and obese. No gross hepatomegaly/mass. Extremities reveal 1+ edema bilaterally. Past medical history includes systolic heart failure, morbid obesity, anxiety disorder, DJD, hypertension, GERD, insomnia, carotid atherosclerosis, gout, hyperlipidemia, gastric duodenal ulcer, diverticulosis, hiatal hernia, history of prostate cancer s/p radical prostatectomy (06/27/2022), obstructive sleep apnea and status post its surgery, known history of frequent PVC s/p RFA x 2 (04/06/2023)(10/31/2023), history of appendectomy/tonsillectomy. Has had multiple cardiac catheterization (last in March 2022) which have remained normal. Echocardiogram of May 16, 2022 revealed ejection fraction 45% Echocardiogram of November 21, 2022 (performed in the office), revealed mild concentric left ventricular hypertrophy, LVEF of 45 to 50%, mild biatrial enlargement, aortic root 3.8 cm, mild AI, trace MR/TR/PI. Echocardiogram of March 21, 2023 revealed ejection fraction 45% Left heart catheterization of April 11, 2022 revealed minimal coronary disease and normal EDP. Creatinine: 2.10 - 1.64 - 1.58 - 1.40 Potassium: 3.3 - 3.3 - 2.7 - 3.6 Magnesium: 2.2 - 2.0 - 2.3 TSH: 0.82 Troponin (high sensitive): 9 - 8 - 7 BNP: 29.23 WBC: 14.6 - 12.2 - 10.7 - 11.2 D-dimer: 1.08 Chest x-ray revealed: IMPRESSION: 1. No radiographic evidence of acute cardiopulmonary disease. Carotid Duplex revealed: IMPRESSION: 1. No hemodynamically significant carotid artery stenosis identified bilaterally. BLE Venous Duplex revealed: Impression: 1. No right or left femoropopliteal venous thrombosis. 2. Left inguinal lymph node measuring 2.3 cm Left foot xry reported: FINDINGS/IMPRESSION: There is no evidence of acute fracture or dislocation. Dorsal and plantar calcaneal enthesophytes visualized. The visualized joint space is well maintained. The alignment is anatomical. There is no radiopaque foreign body. EKG revealed: sinus rhythm at 93bpm, QRS of 102ms, QTc of 477ms, with no acute ischemic changes. Telemetry reveals predominately sinus rhythm, NSVT was observed Echocardiogram reported: Left ventricle: Mild concentric left ventricular hypertrophy was seen. LVEF was 60-65%. There was no gross wall motion abnormality. Right ventricle: Right ventricle is normal sized with normal systolic function. Both atria were normal sized. Aortic valve: Aortic valve was not well-visualized. There was no aortic insufficiency/stenosis. There was trivial mitral regurgitation. There was trivial tricuspid regurgitation. Pulmonary valve was not well visualized. Right ventricular systolic pressure was assessed around 30 mm Hg. There was trace pericardial effusion. This is a 53-year old male known outside to our practice who initially presented (06/28/2024) with reported chest pain, palpitations, and dizziness. Patient reports he was shopping in [employer] and felt a sudden onset of palpitations resulting in dizziness requiring him to sit down as he reports he nearly passed out. Following the event, he developed an onset of chest pain which he self administered both Aspirin and SL Nitroglycerin with reported improvement in chest pain. Later that day, he reports experiencing another episode of dizziness with near syncope which at that time he called EMS for further assistance. Upon chart review, EKG tracing performed in the field with EMS revealed presence of sustained ventricular tachycardia which the patient denies having underwent shock for. Upon ED arrival, 12-lead electrocardiogram was performed revealing sinus rhythm at 93bpm, QRS of 102ms, QTc of 477ms, with no acute ischemic changes. HS troponin trend is found unremarkable (9, 8, 7). BNP level is found normal at 29.23. D-Dimer is elevated at 1.08. Initial potassium level of 3.3 with an initial magnesium level of 2.2. TSH level is found to be 0.82. Initial creatinine level of 2.1. Initial WBC count of 14.6 which chest imaging and urinalysis were found non-revealing. As the patient initially presented with dizziness, near syncope, any chest pain, presence of sustained ventricular tachycardia could have contributed to the clinical picture. As there is objective evidence for sustained ventricular tachycardia, patient benefits from undergoing left heart catheterization to assess for any flow-limiting coronary lesions. If coronary revascularization is non-revealing, patient benefits from undergoing implantation of AICD secondary to symptomatic sustained ventricular tachycardia for primary prevention agains sudden cardiac . Sustained ventricular tachycardia, symptomatic Chest pain, rule out obstructive coronary artery disease Pre-syncope, likely secondary to underlying ventricular arrhythmia History of PVC's, status post RFA x 2 (04/06/2023)(10/31/2023) Chronic systolic heart failure, without exacerbation Abnormal D-Dimer, rule out presence of PE/DVT Acute kidney injury Hyperlipidemia Leukocytosis Hypokalemia Morbid obesity Cardiac Suggestions for Management: Plan for tentative LHC today Awaiting VQ scan Sustain Magnesium level greater than 2.0 Sustain Potassium level greater than 4.0 Follow up renal function and electrolytes Off Trazodone, it may provoke QT prolongation with concurrent Amiodarone therapy Aspirin held 2/2 previous gastroduodenal ulcer (04/2024) Entresto held secondary to JACINTA/soft blood pressures Beta-jason held secondary to soft blood pressures Gentle IV fluid is considered justifiable at present Start Amiodarone infusion per pharmacy protocol Amiodarone 200mg po once daily Atorvastatin 20mg po daily Proceed with close observation for overt signs of fluid overload Proceed with strict intakes, outputs, and daily weights Proceed with close rate and rhythm surveillance Proceed with close hemodynamic surveillance Proceed with optimized blood pressure control Transfuse to sustain HGB level above 7.0 Management in telemetry Will proceed to follow from a cardiac perspective Further recommendations per clinical progression All available diagnostic labs, EKG's, and images were personally reviewed Plan of care discussed with and agreed upon by patient / primary RN Prognosis: Guarded Thank you for allowing me to participate in the care of this patient. Further recommendations based on patients clinical course and progression, primary attending, and other consultants. Will continue to follow with primary attending. If you have any questions or concerns, please do not hesitate to contact me. A total of 75 minutes was spent reviewing the patient record, examining the patient, making a diagnostic and therapeutic plan, discussing this plan with medical personnel, following up on diagnostic studies and following the patient for clinical stability excluding any and all procedures. At least 50% of this time was spent in direct, [id number] contact. Plan discussed with: Other (Patient and Primary RN) Plan discussed with: Patient, Other (nurse) FRANKIE BORJAS MD Jul 01, 2024 08:08
[2024-07-01] MEDS: LIDOCAINE 2% TOPICAL JELLY 5 ML URJT TOP PRN (09:06)
--- NOTE | 2024-07-01 14:10 | DVHOP2 ---
Operative Report Procedures performed: Left heart catheterization and bilateral coronary angiogram Moderate sedation Diagnosis: Nonobstructive coronary artery disease LVEF of 55% with increased LVEDP (21 mm Hg) Cardiac suggestion for management: Optimized medical therapy Consider ICD for sustained ventricular tachycardia For now, continue Amiodarone drip Findings: LVEF: 55% LVEDP: 21 mm Hg There was no transaortic valve pressure gradient Left main: Left main was coming off the left sinus of Valsalva. There was no angiographic evidence of disease in left main. LAD: LAD was coming off the left main. It provided a large 1st diagonal, medium-sized 2nd diagonal and small-sized D3. Mid LAD HAD up to 50% smooth disease. D2 had 50% ostial disease. LCX: LCX was a medium-sized vessel which gave off the left main. LCX continue as obtuse marginal. LCX throughout its course and branches did not reveal any angiographic evidence of disease. RCA: RCA was coming off the right sinus of Valsalva. It provided RPDA/RPLS. It was the dominant vessel. RCA throughout its course and branches did not reveal any angiographic evidence of disease. Presentation: Patient is a 53-year-old gentleman who presented with presyncope and sustained ventricular tachycardia to the hospital. He was sent for cardiac catheterization. Procedure: After obtaining informed consent, the patient was brought to cardiac cath technician. He was prepped and draped in sterile fashion. Right femoral artery was used for access site. Under fluoroscopy guidance and using a micropuncture sheath, the right femoral artery was accessed. After angiographically proving a good access point, micropuncture sheath was exchanged over wire to a six [place] femoral sheath. Six [place] JL4 diagnostic catheter was used to perform left coronary angiography. Six [place] JR4 diagnostic catheter was used to perform right coronary angiography. A six [place] pigtail catheter was used to perform left heart catheterization (obtaining pressures and performing left ventriculography). There was no indication for any transcatheter revascularization. Total bleeding was less than 10 mL. There was no dissection/hematoma/perforation. Patient tolerated the procedure with no complication. Right femoral artery access site was managed by manual compression. Fluoroscopy time: 3.9 minutes contrast: 80 mL of Visipaque FRANKIE BORJAS MD Jul 01, 2024 14:10
[2024-07-01] MEDS: fentaNYL CITRATE 100 MCG/2 ML VL ONE (14:24)
[2024-07-01] MEDS: HEPARIN SODIUM (PORCINE) 5000 UNITS/ML 1ML VIAL ONE (14:24)
[2024-07-01] MEDS: MIDAZOLAM HCL 2MG/2ML 2ml VIAL (1mg/ml) ONE (14:25)
[2024-07-01] MEDS: VERAPAMIL 2.5MG/ML INJ 2ML VIAL IV ONE (14:25)
[2024-07-01] MEDS: ANGIOMAX 250 MG VIAL IV ONE (14:25)
[2024-07-01] MEDS: SODIUM CHL 0.9% 0 ML ONE (14:26)
[2024-07-01] MEDS: LIDOCAINE 2%HCL (LOCAL ANESTH.) INJ 20ML MDV ONE (14:26)
--- NOTE | 2024-07-01 17:54 | DVHPN2 ---
Subjective Seen and evaluated by strike plate attacher. Undergoing coronary angiogram this afternoon. Changes from previous H/P or p: No Changes Eyes: No Pain, No Vision change, No Conjunctivae inflammation, No Eyelid inflammation, No Other, No Redness ENT: No Ear pain, No Ear discharge, No Nose pain, No Nose discharge, No Nose congestion, No Mouth pain, No Mouth swelling, No Throat pain, No Throat swelling, No Other Cardiovascular: Chest Pain, Palpitations, Lt Headedness Respiratory: Shortness of breath, SOB with excertion Gastrointestinal: Nausea Genitourinary: No Dysuria, No Frequency, No Incontinence, No Hematuria, No Retention, No Other Musculoskeletal: No other, No neck pain, No shoulder pain, No arm pain, No back pain, No hand pain, No leg pain, No foot pain Skin: No Rash, No Lesions, No Jaundice, No Bruising, No Other Objective Vitals Vital Signs Date Time Temp Pulse Resp B/P (MAP) Pulse Ox O2 Delivery O2 Flow Rate FiO2 07/01/24 17:00 64 20 113/50 (71) 97 07/01/24 17:00 98.4 98.4 07/01/24 08:30 Room Air* 0 21 Intake/Output Intake and Output 07/01/24 07:00 Intake Total 1241.665 ml Output Total 600 ml Balance 641.665 ml Intake Oral 925 ml IV Total 316.665 ml Output Urine Total 600 ml # Voids 10 Exam Alert awake oriented x3. Comfortable in bed without distress. HEENT neck supple no JVD. Heart irregular rate and rhythm S1-S2. Lungs fair air movement without rales wheezes. Abdomen soft obese positive bowel sounds. Nontender. Extremities no edema positive pulses Medications Current Medications Medications Dose Ordered Sig/Yesica Route Start Time Stop Time Status Last Admin Dose Admin Sodium Chloride 10 ml Q8HR IV 06/28/24 22:00 07/01/24 04:50 10 ML Ondansetron HCl 4 mg Q4HP PRN IV 06/28/24 20:45 Morphine Sulfate 2 mg Q4HPRN PRN IV 06/28/24 20:45 07/01/24 14:56 2 MG Nitroglycerin 0.4 mg Q5MINP PRN SL 06/28/24 20:45 Morphine Sulfate 2 mg Q30M PRN IV 06/28/24 20:45 06/30/24 13:27 2 MG Allopurinol 100 mg TID PO 06/29/24 06:00 06/30/24 21:51 100 MG Amiodarone HCl 200 mg DAILY PO 06/29/24 10:00 06/30/24 09:42 200 MG Atorvastatin Calcium 20 mg DAILY PO 06/29/24 10:00 06/30/24 09:42 20 MG Furosemide 40 mg DAILY PO 06/29/24 10:00 06/30/24 09:42 40 MG Pantoprazole Sodium 40 mg BID PO 06/29/24 10:00 06/30/24 21:51 40 MG Sucralfate 1 gm BID PO 06/29/24 10:00 06/30/24 21:51 1 GM Acetaminophen/ Hydrocodone Bitart 1 tab Q6HP PRN PO 06/29/24 12:15 06/30/24 22:37 1 TAB Lidocaine HCl 5 ml Q8HPRN PRN TOP 06/29/24 12:15 07/01/24 09:06 5 ML Lorazepam 1 mg HS PO 06/29/24 22:00 06/30/24 21:51 1 MG Mupirocin 1 applic BID EACHNOSTRI 06/29/24 22:00 07/04/24 21:59 07/01/24 09:43 1 APPLIC Magnesium Oxide 400 mg BID PO 06/29/24 22:00 06/30/24 21:51 400 MG Amiodarone HCl 250 ml @ 16.667 mls/ hr Q15H IV 06/30/24 19:45 07/01/24 11:05 16.667 MLS/HR Sodium Chloride 1,000 ml @ 75 mls/hr [id number] IV 06/30/24 14:45 07/01/24 08:34 75 MLS/HR Acetylcysteine 1,200 mg BID PO 06/30/24 22:00 07/02/24 21:59 07/01/24 09:45 1,200 MG Lorazepam 1 mg Q8HP PRN IV 06/30/24 17:15 Laboratory Results Laboratory Tests 07/01/24 05:14 Chemistry Test 07/01/24 05:14 Albumin 4.6 g/dL (3.2-4.8) Calcium Level 9.7 mg/dL (8.7-10.4) Magnesium Level 2.3 mg/dL (1.6-2.6) Total Protein 6.9 g/dL (5.7-8.2) LFT Test 07/01/24 05:14 Alanine Aminotransferase (ALT) 11 U/L (7-40) Alkaline Phosphatase 49 U/L (46-116) Aspartate Amino Transferase (AST) 10 U/L (13-40) L Total Bilirubin 0.6 mg/dL (0.2-1.0) Urinalysis Test 06/29/24 15:35 Urine Color Colorless (Yellow) Urine Clarity Clear (Clear) Urine pH 5.5 (5.0-9.0) Urine Specific [place] 1.006 (1.001-1.035) Urine Protein Negative (Negative) Urine Ketones Negative (Negative) Urine Blood Negative /uL (Negative) Urine Nitrite Negative (Negative) Urine Bilirubin Negative (Negative) Urine Urobilinogen Normal mg/dL (Negative) Urine Leukocyte Esterase Negative /uL (Negative) Urine RBC <1 /hpf (0 - 3) Urine WBC <1 /hpf (0 - 3) Urine Squamous Epithelial Cells Few /hpf (<5) Urine Bacteria None seen /hpf (None Seen) Urine Glucose Normal mg/dL (Normal) Microbiology Microbiology Date/Time Source Procedure Growth Status 06/29/24 06:00 Nose MRSA Screen - Final Methicillin Resistant S.aureus Complete Labs and/or images reviewed: Labs reviewed by me Assessment/Plan Assessment/Plan To continue present medications and management medically as he is on. Proceed with a coronary angiogram this afternoon. Further clinical management per coronary angiogram findings and recommendations from the strike plate attacher. Plan discussed with: Patient, Other My Orders Orders - ARIEL KELLEY MD Procedure Category Date Status Time Basic Metabolic Panel LAB 07/02/24 Verified 04:00 Complete Blood Count LAB 07/02/24 Verified 04:00 Problem List: (1) SVT (supraventricular tachycardia) (2) ACS (acute coronary syndrome) (3) JACINTA (acute kidney injury) Date of Service: Jul 01, 2024 Billing Provider: ARIEL KELLEY MD Common Visit Codes: [id number] INP/OBS CARE(LOW) ARIEL KELLEY MD Jul 01, 2024 17:54
[2024-07-02] VITALS (7 sets, daily range): BP systolic 131–154; BP diastolic 66–72; PULSE 58–65; RESP 17–19; TEMP 97.9–98.7; O2SAT 97–99
[2024-07-02] MEDS: LORazepam 2MG/ML-1ML VIAL IV PRN (02:02)
--- NOTE | 2024-07-02 06:11 | DVHPN2 ---
Progress Note - Dictate Date Seen: Jul 02, 2024 Medical Necessity Reason Pt with a Central, PICC or Fol: No vital signs Vital Sign Date Time Temp Pulse Resp B/P (MAP) Pulse Ox O2 Delivery O2 Flow Rate FiO2 07/02/24 05:00 97.9 58 19 139/71 (93) 99 97.9 07/01/24 19:34 Room Air* 0 21 Total Intake and Output 07/01/24 07/01/24 07/02/24 15:00 23:00 07:00 Intake Total 66 ml 683 ml 400 ml Output Total 925 ml 900 ml Balance 66 ml -242 ml -500 ml medications Current Medications Medications Dose Ordered Sig/Yesica Route Start Time Stop Time Status Last Admin Dose Admin Sodium Chloride 10 ml Q8HR IV 06/28/24 22:00 07/02/24 05:15 10 ML Ondansetron HCl 4 mg Q4HP PRN IV 06/28/24 20:45 Morphine Sulfate 2 mg Q4HPRN PRN IV 06/28/24 20:45 07/01/24 22:40 2 MG Nitroglycerin 0.4 mg Q5MINP PRN SL 06/28/24 20:45 Morphine Sulfate 2 mg Q30M PRN IV 06/28/24 20:45 06/30/24 13:27 2 MG Allopurinol 100 mg TID PO 06/29/24 06:00 07/02/24 05:15 100 MG Amiodarone HCl 200 mg DAILY PO 06/29/24 10:00 06/30/24 09:42 200 MG Atorvastatin Calcium 20 mg DAILY PO 06/29/24 10:00 06/30/24 09:42 20 MG Furosemide 40 mg DAILY PO 06/29/24 10:00 06/30/24 09:42 40 MG Pantoprazole Sodium 40 mg BID PO 06/29/24 10:00 07/01/24 21:07 40 MG Sucralfate 1 gm BID PO 06/29/24 10:00 07/01/24 21:09 1 GM Acetaminophen/ Hydrocodone Bitart 1 tab Q6HP PRN PO 06/29/24 12:15 07/01/24 21:08 1 TAB Lidocaine HCl 5 ml Q8HPRN PRN TOP 06/29/24 12:15 07/01/24 22:14 5 ML Lorazepam 1 mg HS PO 06/29/24 22:00 07/01/24 21:08 1 MG Mupirocin 1 applic BID EACHNOSTRI 06/29/24 22:00 07/04/24 21:59 07/01/24 21:10 1 APPLIC Magnesium Oxide 400 mg BID PO 06/29/24 22:00 07/01/24 21:07 400 MG Amiodarone HCl 250 ml @ 16.667 mls/ hr Q15H IV 06/30/24 19:45 07/02/24 02:10 16.667 MLS/HR Sodium Chloride 1,000 ml @ 75 mls/hr [id number] IV 06/30/24 14:45 07/01/24 22:39 75 MLS/HR Acetylcysteine 1,200 mg BID PO 06/30/24 22:00 07/02/24 21:59 07/01/24 21:12 1,200 MG Lorazepam 1 mg Q8HP PRN IV 06/30/24 17:15 07/02/24 02:02 1 MG laboratory and microbiology Laboratory Tests 07/01/24 05:14 Test 07/01/24 05:14 Range/Units Serum Glucose 95 74-106 mg/dL Assessment/Plan This is a 53-year old male known outside to our practice who initially presented (06/28/2024) with reported chest pain, palpitations, and dizziness. Patient reports he was shopping in [employer] and felt a sudden onset of palpitations resulting in dizziness requiring him to sit down as he reports he nearly passed out. Following the event, he developed an onset of chest pain which he self administered both Aspirin and SL Nitroglycerin with reported improvement in chest pain. Later that day, he reports experiencing another episode of dizziness with near syncope which at that time he called EMS for further assistance. Upon chart review, EKG tracing performed in the field with EMS revealed presence of sustained ventricular tachycardia which the patient denies having underwent shock for. Upon ED arrival, 12-lead electrocardiogram was performed revealing sinus rhythm at 93bpm, QRS of 102ms, QTc of 477ms, with no acute ischemic changes. HS troponin trend is found unremarkable (9, 8, 7). BNP level is found normal at 29.23. D-Dimer is elevated at 1.08. Initial potassium level of 3.3 with an initial magnesium level of 2.2. TSH level is found to be 0.82. Initial creatinine level of 2.1. Initial WBC count of 14.6 which chest imaging and urinalysis were found non-revealing. As the patient initially presented with dizziness and chest pain, Cardiology services have now been involved for cardiac aspects of care. Not in acute distress, lying in bed comfortably. Not using accessory muscles of breathing. Morbidly obese, no carotid bruits. No goiter. Clear to auscultation. Cardiac: Regular, 2 out of 6 systolic murmur in the right lower sternal border. Abdomen is soft and obese. No gross hepatomegaly/mass. Extremities reveal 1+ edema bilaterally. Past medical history includes systolic heart failure, morbid obesity, anxiety disorder, DJD, hypertension, GERD, insomnia, carotid atherosclerosis, gout, hyperlipidemia, gastric duodenal ulcer, diverticulosis, hiatal hernia, history of prostate cancer s/p radical prostatectomy (06/27/2022), obstructive sleep apnea and status post its surgery, known history of frequent PVC s/p RFA x 2 (04/06/2023)(10/31/2023), history of appendectomy/tonsillectomy. Has had multiple cardiac catheterization (last in March 2022) which have remained normal. Echocardiogram of May 16, 2022 revealed ejection fraction 45% Echocardiogram of November 21, 2022 (performed in the office), revealed mild concentric left ventricular hypertrophy, LVEF of 45 to 50%, mild biatrial enlargement, aortic root 3.8 cm, mild AI, trace MR/TR/PI. Echocardiogram of March 21, 2023 revealed ejection fraction 45% Left heart catheterization of April 11, 2022 revealed minimal coronary disease and normal EDP. Creatinine: 2.10 - 1.64 - 1.58 - 1.40 Potassium: 3.3 - 3.3 - 2.7 - 3.6 Magnesium: 2.2 - 2.0 - 2.3 TSH: 0.82 Troponin (high sensitive): 9 - 8 - 7 BNP: 29.23 WBC: 14.6 - 12.2 - 10.7 - 11.2 D-dimer: 1.08 Chest x-ray revealed: IMPRESSION: 1. No radiographic evidence of acute cardiopulmonary disease. Carotid Duplex revealed: IMPRESSION: 1. No hemodynamically significant carotid artery stenosis identified bilaterally. BLE Venous Duplex revealed: Impression: 1. No right or left femoropopliteal venous thrombosis. 2. Left inguinal lymph node measuring 2.3 cm Left foot xry reported: FINDINGS/IMPRESSION: There is no evidence of acute fracture or dislocation. Dorsal and plantar calcaneal enthesophytes visualized. The visualized joint space is well maintained. The alignment is anatomical. There is no radiopaque foreign body. EKG revealed: sinus rhythm at 93bpm, QRS of 102ms, QTc of 477ms, with no acute ischemic changes. Telemetry reveals predominately sinus rhythm, NSVT was observed Echocardiogram reported: Left ventricle: Mild concentric left ventricular hypertrophy was seen. LVEF was 60-65%. There was no gross wall motion abnormality. Right ventricle: Right ventricle is normal sized with normal systolic function. Both atria were normal sized. Aortic valve: Aortic valve was not well-visualized. There was no aortic insufficiency/stenosis. There was trivial mitral regurgitation. There was trivial tricuspid regurgitation. Pulmonary valve was not well visualized. Right ventricular systolic pressure was assessed around 30 mm Hg. There was trace pericardial effusion. Left heart cath revealed: Nonobstructive coronary artery disease; LVEF of 55% with increased LVEDP (21 mm Hg); Cardiac suggestion for management: Optimized medical therapy; Consider ICD for sustained ventricular tachycardia; For now, continue Amiodarone drip This is a 53-year old male known outside to our practice who initially presented (06/28/2024) with reported chest pain, palpitations, and dizziness. Patient reports he was shopping in [place] [employer] and felt a sudden onset of palpitations resulting in dizziness requiring him to sit down as he reports he nearly passed out. Following the event, he developed an onset of chest pain which he self administered both Aspirin and SL Nitroglycerin with reported improvement in chest pain. Later that day, he reports experiencing another episode of dizziness with near syncope which at that time he called EMS for further assistance. Upon chart review, EKG tracing performed in the field with EMS revealed presence of sustained ventricular tachycardia which the patient denies having underwent shock for. Upon ED arrival, 12-lead electrocardiogram was performed revealing sinus rhythm at 93bpm, QRS of 102ms, QTc of 477ms, with no acute ischemic changes. HS troponin trend is found unremarkable (9, 8, 7). BNP level is found normal at 29.23. D-Dimer is elevated at 1.08. Initial potassium level of 3.3 with an initial magnesium level of 2.2. TSH level is found to be 0.82. Initial creatinine level of 2.1. Initial WBC count of 14.6 which chest imaging and urinalysis were found non-revealing. As the patient initially presented with dizziness, near syncope, any chest pain, presence of sustained ventricular tachycardia could have contributed to the clinical picture. Left heart cath was non-revealing of significant coronary disease. Patient benefits from undergoing implantation of AICD secondary to symptomatic sustained ventricular tachycardia for primary prevention agains sudden cardiac . Sustained ventricular tachycardia, symptomatic Chest pain, rule out obstructive coronary artery disease Pre-syncope, likely secondary to underlying ventricular arrhythmia History of PVC's, status post RFA x 2 (04/06/2023)(10/31/2023) Sustained V-tach Chronic systolic heart failure, without exacerbation Abnormal D-Dimer, rule out presence of PE/DVT Acute kidney injury Hyperlipidemia Leukocytosis Hypokalemia Morbid obesity Cardiac Suggestions for Management: Repeat labs Awaiting VQ scan Sustain Magnesium level greater than 2.0 Sustain Potassium level greater than 4.0 Follow up renal function and electrolytes ICD implantation by Dr Moreno (tentatively tomorrow). NPO after midnight tonight. Off Trazodone, it may provoke QT prolongation with concurrent Amiodarone therapy Aspirin held 2/2 previous gastroduodenal ulcer (04/2024) Entresto held secondary to JACINTA/soft blood pressures Beta-jason held secondary to soft blood pressures Gentle IV fluid is considered justifiable at present Start Amiodarone infusion per pharmacy protocol Amiodarone 200mg po once daily Atorvastatin 20mg po daily Proceed with close observation for overt signs of fluid overload Proceed with strict intakes, outputs, and daily weights Proceed with close rate and rhythm surveillance Proceed with close hemodynamic surveillance Proceed with optimized blood pressure control Transfuse to sustain HGB level above 7.0 Management in telemetry Will proceed to follow from a cardiac perspective Further recommendations per clinical progression All available diagnostic labs, EKG's, and images were personally reviewed Plan of care discussed with and agreed upon by patient / primary RN Prognosis: Guarded Thank you for allowing me to participate in the care of this patient. Further recommendations based on patients clinical course and progression, primary attending, and other consultants. Will continue to follow with primary attending. If you have any questions or concerns, please do not hesitate to contact me. A total of 55 minutes was spent reviewing the patient record, examining the patient, making a diagnostic and therapeutic plan, discussing this plan with medical personnel, following up on diagnostic studies and following the patient for clinical stability excluding any and all procedures. At least 50% of this time was spent in direct, [id number] contact. Plan discussed with: Other (Patient and Primary RN) Plan discussed with: Patient, Other (nurse) FRANKIE BORJAS MD Jul 02, 2024 06:11
[2024-07-02 06:37] LABS: Chloride 110 mmol/L (98-107); Potassium 4.1 mmol/L (3.5-5.1); Sodium 141 mmol/L (136-145)
[2024-07-02 06:38] LABS: Anion Gap 5 (5-15); Carbon Dioxide 26 mmol/L (20-31)
[2024-07-02 06:39] LABS: Calcium 8.9 mg/dL (8.7-10.4)
[2024-07-02 06:43] LABS: Glucose 89 mg/dL (74-106)
[2024-07-02 06:44] LABS: BUN/Creatinine Ratio 12.2 (10.0-20.0); Blood Urea Nitrogen 14 mg/dL (9-23)
[2024-07-02 06:46] LABS: Basophils # (auto) 0.1 10 ^3/uL (0-0.2); Basophils % (auto) 0.7 % (0.0-2.0); Eosinophils # (auto) 0.2 10 ^3/uL (0-0.8); Eosinophils % (auto) 2.1 % (0.0-7.0); Hemoglobin 11.4 g/dL (13.5-17.5); Lymphocytes % (auto) 10.8 % (10.0-50.0); Mean Corpuscular Hemoglobin 31.3 pg (28.0-32.0); Mean Corpuscular Hgb Conc. 31.8 g/dL (32.0-36.0); Mean Corpuscular Volume 98.6 fL (80.0-100.0); Monocytes % (auto) 10.9 % (0.0-12.0); Neutrophils # (auto) 6.8 10 ^3/uL (1.6-8.6); Neutrophils % (auto) 75.5 % (37.0-80.0); Platelet Count (auto) 246 10^3/uL (140-450); Red Blood Cells 3.65 10^6/uL (4.5-5.90); Red Cell Distribution Width 14.4 % (11.8-14.3)
--- NOTE | 2024-07-02 13:10 | DVHPN2 ---
Subjective Seen and evaluated by web merchant. Patient had a heart catheterization. He is scheduled for AICD placement for tomorrow by Cardiology. Patient is otherwise clinically stable without any complaints. Changes from previous H/P or p: No Changes Eyes: No Pain, No Vision change, No Conjunctivae inflammation, No Eyelid inflammation, No Other, No Redness ENT: No Ear pain, No Ear discharge, No Nose pain, No Nose discharge, No Nose congestion, No Mouth pain, No Mouth swelling, No Throat pain, No Throat swelling, No Other Cardiovascular: Chest Pain, Palpitations, Lt Headedness Respiratory: Shortness of breath, SOB with excertion Gastrointestinal: Nausea Genitourinary: No Dysuria, No Frequency, No Incontinence, No Hematuria, No Retention, No Other Musculoskeletal: No other, No neck pain, No shoulder pain, No arm pain, No back pain, No hand pain, No leg pain, No foot pain Skin: No Rash, No Lesions, No Jaundice, No Bruising, No Other Objective Vitals Vital Signs Date Time Temp Pulse Resp B/P (MAP) Pulse Ox O2 Delivery O2 Flow Rate FiO2 07/02/24 09:40 61 19 154/77 07/02/24 09:00 97.9 97 97.9 07/02/24 08:00 Room Air* 0 21 Intake/Output Intake and Output 07/02/24 07:00 Intake Total 1149 ml Output Total 1825 ml Balance -676 ml Intake Oral 400 ml IV Total 749 ml Output Urine Total 1825 ml Exam Alert awake oriented x3. Comfortable in bed without distress. HEENT neck supple no JVD. Heart irregular rate and rhythm S1-S2. Lungs fair air movement without rales wheezes. Abdomen soft obese positive bowel sounds. Nontender. Extremities no edema positive pulses Medications Current Medications Medications Dose Ordered Sig/Yesica Route Start Time Stop Time Status Last Admin Dose Admin Sodium Chloride 10 ml Q8HR IV 06/28/24 22:00 07/02/24 05:15 10 ML Ondansetron HCl 4 mg Q4HP PRN IV 06/28/24 20:45 Morphine Sulfate 2 mg Q4HPRN PRN IV 06/28/24 20:45 07/02/24 09:40 2 MG Nitroglycerin 0.4 mg Q5MINP PRN SL 06/28/24 20:45 Morphine Sulfate 2 mg Q30M PRN IV 06/28/24 20:45 06/30/24 13:27 2 MG Allopurinol 100 mg TID PO 06/29/24 06:00 07/02/24 05:15 100 MG Amiodarone HCl 200 mg DAILY PO 06/29/24 10:00 06/30/24 09:42 200 MG Atorvastatin Calcium 20 mg DAILY PO 06/29/24 10:00 07/02/24 09:38 20 MG Furosemide 40 mg DAILY PO 06/29/24 10:00 07/02/24 09:37 40 MG Pantoprazole Sodium 40 mg BID PO 06/29/24 10:00 07/02/24 09:38 40 MG Sucralfate 1 gm BID PO 06/29/24 10:00 07/02/24 09:37 1 GM Acetaminophen/ Hydrocodone Bitart 1 tab Q6HP PRN PO 06/29/24 12:15 07/01/24 21:08 1 TAB Lidocaine HCl 5 ml Q8HPRN PRN TOP 06/29/24 12:15 07/01/24 22:14 5 ML Lorazepam 1 mg HS PO 06/29/24 22:00 07/01/24 21:08 1 MG Mupirocin 1 applic BID EACHNOSTRI 06/29/24 22:00 07/04/24 21:59 07/02/24 09:35 1 APPLIC Magnesium Oxide 400 mg BID PO 06/29/24 22:00 07/01/24 21:07 400 MG Amiodarone HCl 250 ml @ 16.667 mls/ hr Q15H IV 06/30/24 19:45 07/02/24 02:10 16.667 MLS/HR Sodium Chloride 1,000 ml @ 75 mls/hr [id number] IV 06/30/24 14:45 07/02/24 12:41 75 MLS/HR Acetylcysteine 1,200 mg BID PO 06/30/24 22:00 07/02/24 21:59 07/02/24 09:39 1,200 MG Lorazepam 1 mg Q8HP PRN IV 06/30/24 17:15 07/02/24 02:02 1 MG Laboratory Results Laboratory Tests 07/02/24 04:54 Chemistry Test 07/02/24 04:54 Calcium Level 8.9 mg/dL (8.7-10.4) Urinalysis Test 06/29/24 15:35 Urine Color Colorless (Yellow) Urine Clarity Clear (Clear) Urine pH 5.5 (5.0-9.0) Urine Specific [place] 1.006 (1.001-1.035) Urine Protein Negative (Negative) Urine Ketones Negative (Negative) Urine Blood Negative /uL (Negative) Urine Nitrite Negative (Negative) Urine Bilirubin Negative (Negative) Urine Urobilinogen Normal mg/dL (Negative) Urine Leukocyte Esterase Negative /uL (Negative) Urine RBC <1 /hpf (0 - 3) Urine WBC <1 /hpf (0 - 3) Urine Squamous Epithelial Cells Few /hpf (<5) Urine Bacteria None seen /hpf (None Seen) Urine Glucose Normal mg/dL (Normal) Microbiology Microbiology Date/Time Source Procedure Growth Status 06/29/24 06:00 Nose MRSA Screen - Final Methicillin Resistant S.aureus Complete Labs and/or images reviewed: Labs reviewed by me Assessment/Plan Assessment/Plan To continue present management as he is on. Patient is clinically stable. Proceed with AICD as planned and recommended with web merchant tomorrow. NPO after midnight except medications. Discussed with the nurse regarding care plan. Plan discussed with: Patient, Other Problem List: (1) SVT (supraventricular tachycardia) (2) ACS (acute coronary syndrome) (3) Acute chest pain (4) JACINTA (acute kidney injury) Date of Service: Jul 02, 2024 Billing Provider: ARIEL KELLEY MD Common Visit Codes: [id number] INP/OBS CARE(MOD) ARIEL KELLEY MD Jul 02, 2024 13:10
[2024-07-02] MEDS: IOHEXOL 350 MG/ML 100ML IJ ONE (18:44)
[2024-07-02] MEDS ORDERED: DOCUSATE SOD 100 MG CAP PO PRN (19:00)
--- NOTE | 2024-07-02 19:12 | DVH ---
PROCEDURE: CT CT ANGIO CHEST CONTRAST 07/02/2024 06:17 PM INDICATION:r/o PE. COMPARISON: Chest CT scan without contrast dated 04/30/2024 TECHNIQUE: Coverage: Thorax IV contrast: Administered Phases: Arterial Multiplanar 3-D Maximum Intensity Projection images (MIP) reconstructions were created by the technyonatan abdi in the coronal and sagittal planes as part of the CT angiography protocol. Adverse events: None Medication laboratory values were reviewed to verify the patient meets criteria for contrast administ ration. All CT scans at this medical facility are performed using dose modulation techniques as appropriate t o a performed exam including the following: Automated exposure control was utilized; adjustment of th e MA and/or KV according to patient size; and use of iterative reconstruction technique. Radiation dose: CTDIvol 26 mGy, DLP 119 mGy*cm. FINDINGS: Cardiovascular: No evidence of acute or chronic pulmonary emboli identified. Aorta is normal in calib er. The heart is mildly enlarged. Lungs: Trace right pleural effusion with mild adjacent pulmonary opacities. No pneumothorax. The air ways are patent. Thyroid: Multiple subcentimeter nodules are seen. Esophagus: Unremarkable. Lymphatics: No hilar or mediastinal lymphadenopathy. Bones/soft tissues: No acute abnormality. Multilevel degenerative changes of the thoracic spine are n oted. Upper abdomen: No acute abnormality. Stable large left adrenal myelolipoma noted. Other: None. IMPRESSION: 1. No evidence of acute pulmonary emboli. 2. Trace right pleural effusion with mild adjacent pulmonary opacities.
[2024-07-03] VITALS (12 sets, daily range): BP systolic 128–167; BP diastolic 68–97; PULSE 52–65; RESP 12–19; TEMP 97.9–98.6; O2SAT 92–100
--- NOTE | 2024-07-03 06:29 | DVHPN2 ---
Progress Note - Dictate Date Seen: Jul 03, 2024 Medical Necessity Reason Pt with a Central, PICC or Fol: No vital signs Vital Sign Date Time Temp Pulse Resp B/P (MAP) Pulse Ox O2 Delivery O2 Flow Rate FiO2 07/03/24 05:00 98.2 52 17 142/97 (112) 100 98.2 07/02/24 20:00 Room Air* 0 21 Total Intake and Output 07/02/24 07/02/24 07/03/24 15:00 23:00 07:00 Intake Total 400 ml 1924.667 ml 0 ml Output Total 1300 ml 650 ml Balance 400 ml 624.667 ml -650 ml medications Current Medications Medications Dose Ordered Sig/Yesica Route Start Time Stop Time Status Last Admin Dose Admin Sodium Chloride 10 ml Q8HR IV 06/28/24 22:00 07/03/24 05:43 10 ML Ondansetron HCl 4 mg Q4HP PRN IV 06/28/24 20:45 Morphine Sulfate 2 mg Q4HPRN PRN IV 06/28/24 20:45 07/02/24 18:48 2 MG Nitroglycerin 0.4 mg Q5MINP PRN SL 06/28/24 20:45 Morphine Sulfate 2 mg Q30M PRN IV 06/28/24 20:45 06/30/24 13:27 2 MG Allopurinol 100 mg TID PO 06/29/24 06:00 07/02/24 22:42 100 MG Amiodarone HCl 200 mg DAILY PO 06/29/24 10:00 06/30/24 09:42 200 MG Atorvastatin Calcium 20 mg DAILY PO 06/29/24 10:00 07/02/24 09:38 20 MG Furosemide 40 mg DAILY PO 06/29/24 10:00 07/02/24 09:37 40 MG Pantoprazole Sodium 40 mg BID PO 06/29/24 10:00 07/02/24 22:41 40 MG Sucralfate 1 gm BID PO 06/29/24 10:00 07/02/24 22:41 1 GM Acetaminophen/ Hydrocodone Bitart 1 tab Q6HP PRN PO 06/29/24 12:15 07/03/24 04:45 1 TAB Lidocaine HCl 5 ml Q8HPRN PRN TOP 06/29/24 12:15 07/02/24 22:44 5 ML Lorazepam 1 mg HS PO 06/29/24 22:00 07/02/24 22:41 1 MG Mupirocin 1 applic BID EACHNOSTRI 06/29/24 22:00 07/04/24 21:59 07/02/24 22:00 1 APPLIC Magnesium Oxide 400 mg BID PO 06/29/24 22:00 07/02/24 22:41 400 MG Sodium Chloride 1,000 ml @ 75 mls/hr [id number] IV 06/30/24 14:45 07/03/24 01:55 75 MLS/HR Lorazepam 1 mg Q8HP PRN IV 06/30/24 17:15 07/02/24 02:02 1 MG Docusate Sodium 100 mg BIDPRN PRN PO 07/02/24 19:00 laboratory and microbiology Laboratory Tests 07/02/24 04:54 Test 07/02/24 04:54 Range/Units Serum Glucose 89 74-106 mg/dL Assessment/Plan This is a 53-year old male known outside to our practice who initially presented (06/28/2024) with reported chest pain, palpitations, and dizziness. Patient reports he was shopping in [employer] and felt a sudden onset of palpitations resulting in dizziness requiring him to sit down as he reports he nearly passed out. Following the event, he developed an onset of chest pain which he self administered both Aspirin and SL Nitroglycerin with reported improvement in chest pain. Later that day, he reports experiencing another episode of dizziness with near syncope which at that time he called EMS for further assistance. Upon chart review, EKG tracing performed in the field with EMS revealed presence of sustained ventricular tachycardia which the patient denies having underwent shock for. Upon ED arrival, 12-lead electrocardiogram was performed revealing sinus rhythm at 93bpm, QRS of 102ms, QTc of 477ms, with no acute ischemic changes. HS troponin trend is found unremarkable (9, 8, 7). BNP level is found normal at 29.23. D-Dimer is elevated at 1.08. Initial potassium level of 3.3 with an initial magnesium level of 2.2. TSH level is found to be 0.82. Initial creatinine level of 2.1. Initial WBC count of 14.6 which chest imaging and urinalysis were found non-revealing. As the patient initially presented with dizziness and chest pain, Cardiology services have now been involved for cardiac aspects of care. Not in acute distress, lying in bed comfortably. Not using accessory muscles of breathing. Morbidly obese, no carotid bruits. No goiter. Clear to auscultation. Cardiac: Regular, 2 out of 6 systolic murmur in the right lower sternal border. Abdomen is soft and obese. No gross hepatomegaly/mass. Extremities reveal 1+ edema bilaterally. Past medical history includes systolic heart failure, morbid obesity, anxiety disorder, DJD, hypertension, GERD, insomnia, carotid atherosclerosis, gout, hyperlipidemia, gastric duodenal ulcer, diverticulosis, hiatal hernia, history of prostate cancer s/p radical prostatectomy (06/27/2022), obstructive sleep apnea and status post its surgery, known history of frequent PVC s/p RFA x 2 (04/06/2023)(10/31/2023), history of appendectomy/tonsillectomy. Has had multiple cardiac catheterization (last in March 2022) which have remained normal. Echocardiogram of May 16, 2022 revealed ejection fraction 45% Echocardiogram of November 21, 2022 (performed in the office), revealed mild concentric left ventricular hypertrophy, LVEF of 45 to 50%, mild biatrial enlargement, aortic root 3.8 cm, mild AI, trace MR/TR/PI. Echocardiogram of March 21, 2023 revealed ejection fraction 45% Left heart catheterization of April 11, 2022 revealed minimal coronary disease and normal EDP. Creatinine: 2.10 - 1.64 - 1.58 - 1.40 - 1.15 Potassium: 3.3 - 3.3 - 2.7 - 3.6 - 4.1 Magnesium: 2.2 - 2.0 - 2.3 TSH: 0.82 Troponin (high sensitive): 9 - 8 - 7 BNP: 29.23 WBC: 14.6 - 12.2 - 10.7 - 11.2 D-dimer: 1.08 Chest x-ray revealed: IMPRESSION: 1. No radiographic evidence of acute cardiopulmonary disease. Carotid Duplex revealed: IMPRESSION: 1. No hemodynamically significant carotid artery stenosis identified bilaterally. BLE Venous Duplex revealed: Impression: 1. No right or left femoropopliteal venous thrombosis. 2. Left inguinal lymph node measuring 2.3 cm Left foot xry reported: FINDINGS/IMPRESSION: There is no evidence of acute fracture or dislocation. Dorsal and plantar calcaneal enthesophytes visualized. The visualized joint space is well maintained. The alignment is anatomical. There is no radiopaque foreign body. CTA of chest revealed: IMPRESSION: 1. No evidence of acute pulmonary emboli. 2. Trace right pleural effusion with mild adjacent pulmonary opacities. EKG revealed: sinus rhythm at 93bpm, QRS of 102ms, QTc of 477ms, with no acute ischemic changes. Telemetry reveals predominately sinus rhythm, NSVT was observed Echocardiogram reported: Left ventricle: Mild concentric left ventricular hypertrophy was seen. LVEF was 60-65%. There was no gross wall motion abnormality. Right ventricle: Right ventricle is normal sized with normal systolic function. Both atria were normal sized. Aortic valve: Aortic valve was not well-visualized. There was no aortic insufficiency/stenosis. There was trivial mitral regurgitation. There was trivial tricuspid regurgitation. Pulmonary valve was not well visualized. Right ventricular systolic pressure was assessed around 30 mm Hg. There was trace pericardial effusion. Left heart cath revealed: Nonobstructive coronary artery disease; LVEF of 55% with increased LVEDP (21 mm Hg); Cardiac suggestion for management: Optimized medical therapy; Consider ICD for sustained ventricular tachycardia; For now, continue Amiodarone drip This is a 53-year old male known outside to our practice who initially presented (06/28/2024) with reported chest pain, palpitations, and dizziness. Patient reports he was shopping in [place] and felt a sudden onset of palpitations resulting in dizziness requiring him to sit down as he reports he nearly passed out. Following the event, he developed an onset of chest pain which he self administered both Aspirin and SL Nitroglycerin with reported improvement in chest pain. Later that day, he reports experiencing another episode of dizziness with near syncope which at that time he called EMS for further assistance. Upon chart review, EKG tracing performed in the field with EMS revealed presence of sustained ventricular tachycardia which the patient denies having underwent shock for. Upon ED arrival, 12-lead electrocardiogram was performed revealing sinus rhythm at 93bpm, QRS of 102ms, QTc of 477ms, with no acute ischemic changes. HS troponin trend is found unremarkable (9, 8, 7). BNP level is found normal at 29.23. D-Dimer is elevated at 1.08. Initial potassium level of 3.3 with an initial magnesium level of 2.2. TSH level is found to be 0.82. Initial creatinine level of 2.1. Initial WBC count of 14.6 which chest imaging and urinalysis were found non-revealing. As the patient initially presented with dizziness, near syncope, any chest pain, presence of sustained ventricular tachycardia could have contributed to the clinical picture. Left heart cath was non-revealing of significant coronary disease. Patient benefits from undergoing implantation of AICD secondary to symptomatic sustained ventricular tachycardia for primary prevention agains sudden cardiac . Sustained ventricular tachycardia, symptomatic Chest pain, rule out obstructive coronary artery disease Pre-syncope, likely secondary to underlying ventricular arrhythmia History of PVC's, status post RFA x 2 (04/06/2023)(10/31/2023) Sustained V-tach Chronic systolic heart failure, without exacerbation Abnormal D-Dimer, rule out presence of PE/DVT (Venous duplex of lower ext and CTA of lungs were negative) Acute kidney injury Hyperlipidemia Leukocytosis Hypokalemia Morbid obesity Cardiac Suggestions for Management: Sustain Magnesium level greater than 2.0 Sustain Potassium level greater than 4.0 Follow up renal function and electrolytes ICD implantation by Dr Moreno (tentatively today). NPO after midnight tonight. Off Trazodone, it may provoke QT prolongation with concurrent Amiodarone therapy Aspirin held 2/2 previous gastroduodenal ulcer (04/2024) Entresto held secondary to JACINTA/soft blood pressures Beta-jason held secondary to soft blood pressures Gentle IV fluid is considered justifiable at present Start Amiodarone infusion per pharmacy protocol Amiodarone 200mg po once daily Atorvastatin 20mg po daily Proceed with close observation for overt signs of fluid overload Proceed with strict intakes, outputs, and daily weights Proceed with close rate and rhythm surveillance Proceed with close hemodynamic surveillance Proceed with optimized blood pressure control Transfuse to sustain HGB level above 7.0 Management in telemetry Will proceed to follow from a cardiac perspective Further recommendations per clinical progression All available diagnostic labs, EKG's, and images were personally reviewed Plan of care discussed with and agreed upon by patient / primary RN Prognosis: Guarded Thank you for allowing me to participate in the care of this patient. Further recommendations based on patients clinical course and progression, primary attending, and other consultants. Will continue to follow with primary attending. If you have any questions or concerns, please do not hesitate to contact me. A total of 55 minutes was spent reviewing the patient record, examining the patient, making a diagnostic and therapeutic plan, discussing this plan with medical personnel, following up on diagnostic studies and following the patient for clinical stability excluding any and all procedures. At least 50% of this time was spent in direct, [id number] contact. Plan discussed with: Other (Patient and Primary RN) Dietary Evaluation Review Comments: Continue current plan of care Expected Outcomes/Goals: F/U in 3-5 days Plan discussed with: Patient, Other (nurse) FRANKIE BORJAS MD Jul 03, 2024 06:29
[2024-07-03] MEDS: SODIUM CHLORIDE 0.9% 1,000 ML IV SCH (12:29)
--- NOTE | 2024-07-03 14:34 | DVHPN2 ---
Progress Note - Dictate Date Seen: Jul 03, 2024 Medical Necessity Reason Pt with a Central, PICC or Fol: No Subjective Patient complains of left ankle discomfort. X-ray did not show any acute pathology. Patient has history of gout with the elevated uric acid levels for which he is on medication. He is scheduled to undergo AICD placement this afternoon. vital signs Vital Sign Date Time Temp Pulse Resp B/P (MAP) Pulse Ox O2 Delivery O2 Flow Rate FiO2 07/03/24 13:00 97.9 60 17 138/68 (91) 97 97.9 07/03/24 08:00 Room Air* 0 21 Total Intake and Output 07/02/24 07/02/24 07/03/24 15:00 23:00 07:00 Intake Total 400 ml 1924.667 ml 0 ml Output Total 1300 ml 650 ml Balance 400 ml 624.667 ml -650 ml medications Current Medications Medications Dose Ordered Sig/Yesica Route Start Time Stop Time Status Last Admin Dose Admin Sodium Chloride 10 ml Q8HR IV 06/28/24 22:00 07/03/24 05:43 10 ML Ondansetron HCl 4 mg Q4HP PRN IV 06/28/24 20:45 Morphine Sulfate 2 mg Q4HPRN PRN IV 06/28/24 20:45 07/03/24 08:01 2 MG Nitroglycerin 0.4 mg Q5MINP PRN SL 06/28/24 20:45 Morphine Sulfate 2 mg Q30M PRN IV 06/28/24 20:45 06/30/24 13:27 2 MG Allopurinol 100 mg TID PO 06/29/24 06:00 07/02/24 22:42 100 MG Amiodarone HCl 200 mg DAILY PO 06/29/24 10:00 07/03/24 12:09 200 MG Atorvastatin Calcium 20 mg DAILY PO 06/29/24 10:00 07/02/24 09:38 20 MG Furosemide 40 mg DAILY PO 06/29/24 10:00 07/02/24 09:37 40 MG Pantoprazole Sodium 40 mg BID PO 06/29/24 10:00 07/02/24 22:41 40 MG Sucralfate 1 gm BID PO 06/29/24 10:00 07/02/24 22:41 1 GM Acetaminophen/ Hydrocodone Bitart 1 tab Q6HP PRN PO 06/29/24 12:15 07/03/24 13:28 1 TAB Lidocaine HCl 5 ml Q8HPRN PRN TOP 06/29/24 12:15 07/03/24 08:00 5 ML Lorazepam 1 mg HS PO 06/29/24 22:00 07/02/24 22:41 1 MG Mupirocin 1 applic BID EACHNOSTRI 06/29/24 22:00 07/04/24 21:59 07/03/24 10:25 1 APPLIC Magnesium Oxide 400 mg BID PO 06/29/24 22:00 07/03/24 10:26 400 MG Lorazepam 1 mg Q8HP PRN IV 06/30/24 17:15 07/02/24 02:02 1 MG Docusate Sodium 100 mg BIDPRN PRN PO 07/02/24 19:00 Sodium Chloride 1,000 ml @ 150 mls/hr Q6H40M IV 07/03/24 11:30 07/03/24 12:29 150 MLS/HR objective Comfortable in bed. Family at bedside. No acute distress. Left ankle examined mild discomfort noted with a ankle flexion and extension. Otherwise positive distal pedal pulses. No erythema noted. laboratory and microbiology Laboratory Tests 07/02/24 04:54 Test 07/02/24 04:54 Range/Units Serum Glucose 89 74-106 mg/dL Assessment/Plan Continue medication for possible gout. Continue rest of cardiac medications. Scheduled to undergo AICD placement this afternoon. Further clinical management per clinical course and recommendations from the Cardiology. Discussed with the patient's nurse and patient/family at bedside regarding care plan. Problems(with codes): (1) SVT (supraventricular tachycardia) (2) ACS (acute coronary syndrome) (3) Acute chest pain Dietary Evaluation Review Comments: Continue current plan of care Expected Outcomes/Goals: F/U in 3-5 days Plan discussed with: ARIEL Farrell MD Jul 03, 2024 14:34
[2024-07-03] MEDS: fentaNYL CITRATE 100 MCG/2 ML VL ONE (16:23)
[2024-07-03] MEDS: VANCOMYCIN HCL 1000 MG VL ONE ×2 (16:23→18:23)
[2024-07-03] MEDS: MIDAZOLAM HCL 2MG/2ML 2ml VIAL (1mg/ml) ONE (16:24)
[2024-07-03] MEDS: VANCOMYCIN 1GM/200ML PREMIX 200 ML IV ONE (16:24)
[2024-07-03] MEDS: LIDOCAINE 2%HCL (LOCAL ANESTH.) INJ 20ML MDV ONE (16:24)
[2024-07-03] MEDS: HYDROmorphone HCL 2 MG/ML VL/or syr ONE (17:10)
--- NOTE | 2024-07-03 18:21 | DVH ---
EXAM: XY CHEST PORTABLE TECHNIQUE: Single frontal chest radiograph CLINICAL HISTORY: S/P PACEMAKER COMPARISON: XY CHEST XRAY 1 VIEW on DOS: 06/28/24, XY CHEST PORTABLE on DOS: 06/25/24, XY CHEST XRAY 1 VIEW on DOS: 05/01/24 Findings/Impression: Frontal chest radiograph demonstrates no acute osseous or superficial soft tissue abnormalities. Interval left chest wall dual chamber ICD. No definite pneumothorax. The trachea is midline. The cardiac silhouette and mediastinum are within normal limits. No pleural effusions or consolidations.
--- NOTE | 2024-07-03 20:48 | DVHOP2 ---
Operative Report 07/03/24 Dictated By: Jonathan Moreno MD INDICATIONS: 1. Sustained Ventricular tachycardia, frequent syncope and pre Syncope due to VT 2. Non-Ischemic cardiomyopathy with an ejection fraction of 55%. 3. CHF I, Prior PVC/VT ablation in the past, sinus bradycardia PLAN: Proceed with implantation of dual AICD for secondary prevention of sudden cardiac PROCEDURES: 1. Right ventricular AICD lead placement MDT MRI conditional, active fixation, 2. Implantation of right atrial lead, active fixation 3. Implantation of the dual AICD generator from MDT, MRI. 4. Fluoroscopy images and interpretation. 5. Interrogation and programming of the device. 6. Conscious sedation with fentanyl and Versed for one hour 7. Left subclavian venogram, two axillary accesses obtained PROCEDURE IN DETAILS: 1. After obtaining informed consent with explanation of risks, benefits and alternatives, the patient agreed upon the planned procedure, implantation of dual AICD for secondary prevention of SCD due to non-ischemic cardiomyopathy and symptomatic VT. Patient understood and agreed to have MDT device. Under a standard fashion, local and systemic anesthetic, conscious sedation with fentanyl and Versed, supervised by myself, Lt deltopectoral area was prepped and draped. Lt deltopectoral pocket was made, two axillary accesses were obtained 2 Through the first access, RV AICD lead was advanced into the right interventricular septum. Sensing was 5 mv with pacing threshold 0.5 v at 0.5 ms. Impedance of 599 ohms. 3. Through the 2nd access the atrial lead was advanced into right atrium and attached in the RA actively, sensing A is 1.8 mv, pacing threshold 0.9 v at 0.4 ms, impedance 526 ohms. 4. New dual AICD lead from [employer] was connected to the leads. . The pocket was irrigated with antibiotic solution. Antibiotic powder was poured into the pocket. The skin was closed in 2 layers and at the end was stapled. CONCLUSION: 1. Status post successful implantation of dual AICD, Device was programmed into DDDR lower rate of 60 bpm 2. There was no immediate complication. JONATHAN MORENO RAMIN B MD Jul 03, 2024 20:48
[2024-07-03] MEDS: VANCOMYCIN 1GM/200ML PREMIX 200 ML IV SCH (21:30)
[2024-07-04] VITALS (7 sets, daily range): BP systolic 141–153; BP diastolic 77–95; PULSE 60–82; RESP 17–19; TEMP 36.4; O2SAT 96–99
--- NOTE | 2024-07-04 06:12 | DVH ---
CHEST RADIOGRAPH Indication:CXR FOR PACEMAKER/ICD LEAD PLACEMENT Technique: Single frontal view of the chest was obtained Comparison: XY CHEST PORTABLE on DOS: 07/03/24 FINDINGS: Lines and Tubes: AICD/pacemaker. Lungs: No focal consolidation. Pleura: No effusion. No pneumothorax. Cardiomediastinal contours: Unremarkable Bones: No acute osseous abnormality. IMPRESSION: 1. No acute cardiopulmonary disease.
--- NOTE | 2024-07-04 07:40 | DVHPN2 ---
Progress Note - Dictate Date Seen: Jul 04, 2024 Medical Necessity Reason Pt with a Central, PICC or Fol: No vital signs Vital Sign Date Time Temp Pulse Resp B/P (MAP) Pulse Ox O2 Delivery O2 Flow Rate FiO2 07/04/24 05:00 98.3 64 17 142/95 (111) 96 98.3 07/03/24 20:00 Room Air* 0 21 Total Intake and Output 07/03/24 07/03/24 07/04/24 15:00 23:00 07:00 Intake Total 200 ml 750 ml Output Total 425 ml 600 ml Balance -225 ml 150 ml medications Current Medications Medications Dose Ordered Sig/Yesica Route Start Time Stop Time Status Last Admin Dose Admin Sodium Chloride 10 ml Q8HR IV 06/28/24 22:00 07/04/24 05:07 10 ML Ondansetron HCl 4 mg Q4HP PRN IV 06/28/24 20:45 Morphine Sulfate 2 mg Q4HPRN PRN IV 06/28/24 20:45 07/04/24 03:01 2 MG Nitroglycerin 0.4 mg Q5MINP PRN SL 06/28/24 20:45 Morphine Sulfate 2 mg Q30M PRN IV 06/28/24 20:45 06/30/24 13:27 2 MG Allopurinol 100 mg TID PO 06/29/24 06:00 07/04/24 05:07 100 MG Amiodarone HCl 200 mg DAILY PO 06/29/24 10:00 07/03/24 12:09 200 MG Atorvastatin Calcium 20 mg DAILY PO 06/29/24 10:00 07/02/24 09:38 20 MG Furosemide 40 mg DAILY PO 06/29/24 10:00 07/02/24 09:37 40 MG Pantoprazole Sodium 40 mg BID PO 06/29/24 10:00 07/03/24 21:18 40 MG Sucralfate 1 gm BID PO 06/29/24 10:00 07/03/24 21:18 1 GM Acetaminophen/ Hydrocodone Bitart 1 tab Q6HP PRN PO 06/29/24 12:15 07/04/24 00:41 1 TAB Lidocaine HCl 5 ml Q8HPRN PRN TOP 06/29/24 12:15 07/03/24 08:00 5 ML Lorazepam 1 mg HS PO 06/29/24 22:00 07/03/24 21:19 1 MG Mupirocin 1 applic BID EACHNOSTRI 06/29/24 22:00 07/04/24 21:59 07/03/24 21:32 1 APPLIC Magnesium Oxide 400 mg BID PO 06/29/24 22:00 07/03/24 21:18 400 MG Lorazepam 1 mg Q8HP PRN IV 06/30/24 17:15 07/02/24 02:02 1 MG Docusate Sodium 100 mg BIDPRN PRN PO 07/02/24 19:00 Vancomycin HCl 200 ml @ 200 mls/hr Q12HR IV 07/03/24 22:00 07/04/24 10:59 07/03/24 21:30 200 MLS/HR laboratory and microbiology Laboratory Tests 07/02/24 04:54 Test 07/02/24 04:54 Range/Units Serum Glucose 89 74-106 mg/dL Assessment/Plan s/p ICD insertion by EP (Dr Moreno) This is a 53-year old male known outside to our practice who initially presented (06/28/2024) with reported chest pain, palpitations, and dizziness. Patient reports he was shopping in [employer] and felt a sudden onset of palpitations resulting in dizziness requiring him to sit down as he reports he nearly passed out. Following the event, he developed an onset of chest pain which he self administered both Aspirin and SL Nitroglycerin with reported improvement in chest pain. Later that day, he reports experiencing another episode of dizziness with near syncope which at that time he called EMS for further assistance. Upon chart review, EKG tracing performed in the field with EMS revealed presence of sustained ventricular tachycardia which the patient denies having underwent shock for. Upon ED arrival, 12-lead electrocardiogram was performed revealing sinus rhythm at 93bpm, QRS of 102ms, QTc of 477ms, with no acute ischemic changes. HS troponin trend is found unremarkable (9, 8, 7). BNP level is found normal at 29.23. D-Dimer is elevated at 1.08. Initial potassium level of 3.3 with an initial magnesium level of 2.2. TSH level is found to be 0.82. Initial creatinine level of 2.1. Initial WBC count of 14.6 which chest imaging and urinalysis were found non-revealing. As the patient initially presented with dizziness and chest pain, Cardiology services have now been involved for cardiac aspects of care. Not in acute distress, lying in bed comfortably. Not using accessory muscles of breathing. Morbidly obese, no carotid bruits. No goiter. Clear to auscultation. Cardiac: Regular, 2 out of 6 systolic murmur in the right lower sternal border. Abdomen is soft and obese. No gross hepatomegaly/mass. Extremities reveal 1+ edema bilaterally. Past medical history includes systolic heart failure, morbid obesity, anxiety disorder, DJD, hypertension, GERD, insomnia, carotid atherosclerosis, gout, hyperlipidemia, gastric duodenal ulcer, diverticulosis, hiatal hernia, history of prostate cancer s/p radical prostatectomy (06/27/2022), obstructive sleep apnea and status post its surgery, known history of frequent PVC s/p RFA x 2 (04/06/2023)(10/31/2023), history of appendectomy/tonsillectomy. Has had multiple cardiac catheterization (last in March 2022) which have remained normal. Echocardiogram of May 16, 2022 revealed ejection fraction 45% Echocardiogram of November 21, 2022 (performed in the office), revealed mild concentric left ventricular hypertrophy, LVEF of 45 to 50%, mild biatrial enlargement, aortic root 3.8 cm, mild AI, trace MR/TR/PI. Echocardiogram of March 21, 2023 revealed ejection fraction 45% Left heart catheterization of April 11, 2022 revealed minimal coronary disease and normal EDP. Creatinine: 2.10 - 1.64 - 1.58 - 1.40 - 1.15 Potassium: 3.3 - 3.3 - 2.7 - 3.6 - 4.1 Magnesium: 2.2 - 2.0 - 2.3 TSH: 0.82 Troponin (high sensitive): 9 - 8 - 7 BNP: 29.23 WBC: 14.6 - 12.2 - 10.7 - 11.2 - 9.0 D-dimer: 1.08 Chest x-ray revealed: IMPRESSION: 1. No radiographic evidence of acute cardiopulmonary disease. Repeat chest xry revealed: Findings/Impression: Frontal chest radiograph demonstrates no acute osseous or superficial soft tissue abnormalities. Interval left chest wall dual chamber ICD. No definite pneumothorax. The trachea is midline. The cardiac silhouette and mediastinum are within normal limits. No pleural effusions or consolidations. Repeat chest xry revealed: FINDINGS: Lines and Tubes: AICD/pacemaker. Lungs: No focal consolidation. Pleura: No effusion. No pneumothorax. Cardiomediastinal contours: Unremarkable Bones: No acute osseous abnormality. IMPRESSION: 1. No acute cardiopulmonary disease. Carotid Duplex revealed: IMPRESSION: 1. No hemodynamically significant carotid artery stenosis identified bilaterally. BLE Venous Duplex revealed: Impression: 1. No right or left femoropopliteal venous thrombosis. 2. Left inguinal lymph node measuring 2.3 cm Left foot xry reported: FINDINGS/IMPRESSION: There is no evidence of acute fracture or dislocation. Dorsal and plantar calcaneal enthesophytes visualized. The visualized joint space is well maintained. The alignment is anatomical. There is no radiopaque foreign body. CTA of chest revealed: IMPRESSION: 1. No evidence of acute pulmonary emboli. 2. Trace right pleural effusion with mild adjacent pulmonary opacities. EKG revealed: sinus rhythm at 93bpm, QRS of 102ms, QTc of 477ms, with no acute ischemic changes. Telemetry reveals predominately sinus rhythm, NSVT was observed Echocardiogram reported: Left ventricle: Mild concentric left ventricular hypertrophy was seen. LVEF was 60-65%. There was no gross wall motion abnormality. Right ventricle: Right ventricle is normal sized with normal systolic function. Both atria were normal sized. Aortic valve: Aortic valve was not well-visualized. There was no aortic insufficiency/stenosis. There was trivial mitral regurgitation. There was trivial tricuspid regurgitation. Pulmonary valve was not well visualized. Right ventricular systolic pressure was assessed around 30 mm Hg. There was trace pericardial effusion. Left heart cath revealed: Nonobstructive coronary artery disease; LVEF of 55% with increased LVEDP (21 mm Hg); Cardiac suggestion for management: Optimized medical therapy; Consider ICD for sustained ventricular tachycardia; For now, continue Amiodarone drip This is a 53-year old male known outside to our practice who initially presented (06/28/2024) with reported chest pain, palpitations, and dizziness. Patient reports he was shopping in [place] [employer] and felt a sudden onset of palpitations resulting in dizziness requiring him to sit down as he reports he nearly passed out. Following the event, he developed an onset of chest pain which he self administered both Aspirin and SL Nitroglycerin with reported improvement in chest pain. Later that day, he reports experiencing another episode of dizziness with near syncope which at that time he called EMS for further assistance. Upon chart review, EKG tracing performed in the field with EMS revealed presence of sustained ventricular tachycardia which the patient denies having underwent shock for. Upon ED arrival, 12-lead electrocardiogram was performed revealing sinus rhythm at 93bpm, QRS of 102ms, QTc of 477ms, with no acute ischemic changes. HS troponin trend is found unremarkable (9, 8, 7). BNP level is found normal at 29.23. D-Dimer is elevated at 1.08. Initial potassium level of 3.3 with an initial magnesium level of 2.2. TSH level is found to be 0.82. Initial creatinine level of 2.1. Initial WBC count of 14.6 which chest imaging and urinalysis were found non-revealing. As the patient initially presented with dizziness, near syncope, any chest pain, presence of sustained ventricular tachycardia could have contributed to the clinical picture. Left heart cath was non-revealing of significant coronary disease. Patient benefits from undergoing implantation of AICD secondary to symptomatic sustained ventricular tachycardia for primary prevention agains sudden cardiac . s/p ICD insertion. Sustained ventricular tachycardia, symptomatic Chest pain, rule out obstructive coronary artery disease Pre-syncope, likely secondary to underlying ventricular arrhythmia History of PVC's, status post RFA x 2 (04/06/2023)(10/31/2023) Sustained V-tach Chronic systolic heart failure, without exacerbation Abnormal D-Dimer, rule out presence of PE/DVT (Venous duplex of lower ext and CTA of lungs were negative) Acute kidney injury Hyperlipidemia Leukocytosis Hypokalemia Morbid obesity s/p ICD insertion ([employer]) Cardiac Suggestions for Management: Sustain Magnesium level greater than 2.0 Sustain Potassium level greater than 4.0 Follow up renal function and electrolytes s/p ICD implantation by Dr Moreno ([employer]) Off Trazodone, it may provoke QT prolongation with concurrent Amiodarone therapy Aspirin held 2/2 previous gastroduodenal ulcer (04/2024) Entresto held secondary to JACINTA/soft blood pressures Beta-jason held secondary to soft blood pressures Gentle IV fluid is considered justifiable at present Off IV Amiodarone Amiodarone 200mg po once daily Atorvastatin 20mg po daily Proceed with close observation for overt signs of fluid overload Proceed with strict intakes, outputs, and daily weights Proceed with close rate and rhythm surveillance Proceed with close hemodynamic surveillance Proceed with optimized blood pressure control Transfuse to sustain HGB level above 7.0 Management in telemetry Will proceed to follow from a cardiac perspective Further recommendations per clinical progression After interrogation of ICD, Cardiac kellogg, can be followed as outpatient. All available diagnostic labs, EKG's, and images were personally reviewed Plan of care discussed with and agreed upon by patient / primary RN Prognosis: Guarded Thank you for allowing me to participate in the care of this patient. Further recommendations based on patients clinical course and progression, primary attending, and other consultants. Will continue to follow with primary attending. If you have any questions or concerns, please do not hesitate to contact me. A total of 55 minutes was spent reviewing the patient record, examining the patient, making a diagnostic and therapeutic plan, discussing this plan with medical personnel, following up on diagnostic studies and following the patient for clinical stability excluding any and all procedures. At least 50% of this time was spent in direct, [id number] contact. Plan discussed with: Other (Patient and Primary RN) Dietary Evaluation Review Comments: Continue current plan of care Expected Outcomes/Goals: F/U in 3-5 days Plan discussed with: Patient, Other (nurse) FRANKIE BORJAS MD Jul 04, 2024 07:40
--- NOTE | 2024-07-04 11:08 | DVHPN2 ---
Eyes: No Pain, No Vision change, No Conjunctivae inflammation, No Eyelid inflammation, No Other, No Redness ENT: No Ear pain, No Ear discharge, No Nose pain, No Nose discharge, No Nose congestion, No Mouth pain, No Mouth swelling, No Throat pain, No Throat swelling, No Other Cardiovascular: Chest Pain, Palpitations, Lt Headedness Respiratory: Shortness of breath, SOB with excertion Gastrointestinal: Nausea Genitourinary: No Dysuria, No Frequency, No Incontinence, No Hematuria, No Retention, No Other Musculoskeletal: No other, No neck pain, No shoulder pain, No arm pain, No back pain, No hand pain, No leg pain, No foot pain Skin: No Rash, No Lesions, No Jaundice, No Bruising, No Other Objective Vitals Vital Signs Date Time Temp Pulse Resp B/P (MAP) Pulse Ox O2 Delivery O2 Flow Rate FiO2 07/04/24 10:00 60 18 130/59 07/04/24 09:00 97.5 99 97.5 07/04/24 08:11 Room Air* 0 21 Intake/Output Intake and Output 07/04/24 07:00 Intake Total 950 ml Output Total 1025 ml Balance -75 ml Intake Oral 750 ml IV Total 200 ml Output Urine Total 1025 ml Medications Current Medications Medications Dose Ordered Sig/Yesica Route Start Time Stop Time Status Last Admin Dose Admin Sodium Chloride 10 ml Q8HR IV 06/28/24 22:00 07/04/24 05:07 10 ML Ondansetron HCl 4 mg Q4HP PRN IV 06/28/24 20:45 Morphine Sulfate 2 mg Q4HPRN PRN IV 06/28/24 20:45 07/04/24 09:30 2 MG Nitroglycerin 0.4 mg Q5MINP PRN SL 06/28/24 20:45 Morphine Sulfate 2 mg Q30M PRN IV 06/28/24 20:45 06/30/24 13:27 2 MG Allopurinol 100 mg TID PO 06/29/24 06:00 07/04/24 05:07 100 MG Amiodarone HCl 200 mg DAILY PO 06/29/24 10:00 07/04/24 09:32 200 MG Atorvastatin Calcium 20 mg DAILY PO 06/29/24 10:00 07/04/24 09:32 20 MG Furosemide 40 mg DAILY PO 06/29/24 10:00 07/04/24 09:32 40 MG Pantoprazole Sodium 40 mg BID PO 06/29/24 10:00 07/04/24 09:33 40 MG Sucralfate 1 gm BID PO 06/29/24 10:00 07/04/24 09:31 1 GM Acetaminophen/ Hydrocodone Bitart 1 tab Q6HP PRN PO 06/29/24 12:15 07/04/24 00:41 1 TAB Lidocaine HCl 5 ml Q8HPRN PRN TOP 06/29/24 12:15 07/03/24 08:00 5 ML Lorazepam 1 mg HS PO 06/29/24 22:00 07/03/24 21:19 1 MG Mupirocin 1 applic BID EACHNOSTRI 06/29/24 22:00 07/04/24 21:59 07/04/24 09:31 1 APPLIC Magnesium Oxide 400 mg BID PO 06/29/24 22:00 07/04/24 09:32 400 MG Lorazepam 1 mg Q8HP PRN IV 06/30/24 17:15 07/02/24 02:02 1 MG Docusate Sodium 100 mg BIDPRN PRN PO 07/02/24 19:00 Laboratory Results Laboratory Tests 07/02/24 04:54 Urinalysis Test 06/29/24 15:35 Urine Color Colorless (Yellow) Urine Clarity Clear (Clear) Urine pH 5.5 (5.0-9.0) Urine Specific [place] 1.006 (1.001-1.035) Urine Protein Negative (Negative) Urine Ketones Negative (Negative) Urine Blood Negative /uL (Negative) Urine Nitrite Negative (Negative) Urine Bilirubin Negative (Negative) Urine Urobilinogen Normal mg/dL (Negative) Urine Leukocyte Esterase Negative /uL (Negative) Urine RBC <1 /hpf (0 - 3) Urine WBC <1 /hpf (0 - 3) Urine Squamous Epithelial Cells Few /hpf (<5) Urine Bacteria None seen /hpf (None Seen) Urine Glucose Normal mg/dL (Normal) Microbiology Microbiology Date/Time Source Procedure Growth Status 06/29/24 06:00 Nose MRSA Screen - Final Methicillin Resistant S.aureus Complete TYE MORSE MD Jul 04, 2024 11:08
--- NOTE | 2024-07-04 12:06 | DVHDS2 ---
Discharge Summary Date of Admission Jun 28, 2024 at 20:33 Date of Discharge: Jul 04, 2024 Admitting Diagnosis (1) SVT (supraventricular tachycardia) (2) ACS (acute coronary syndrome) (3) Acute chest pain Labs/Diagnostic Data: Laboratory Results Test 07/02/24 04:54 07/01/24 05:14 06/29/24 15:35 06/29/24 14:54 White Blood Count 9.0 10^3/uL (4.4-10.8) Red Blood Count 3.65 10^6/uL (4.5-5.90) Hemoglobin 11.4 g/dL (13.5-17.5) Hematocrit 36.0 % (41.0-53.0) Mean Corpuscular Volume 98.6 fL (80.0-100.0) Mean Corpuscular Hemoglobin 31.3 pg (28.0-32.0) Mean Corpuscular Hemoglobin Concent 31.8 g/dL (32.0-36.0) Red Cell Distribution Width 14.4 % (11.8-14.3) Platelet Count 246 10^3/uL (140-450) Mean Platelet Volume 6.9 fL (6.9-10.8) Neutrophils (%) (Auto) 75.5 % (37.0-80.0) Lymphocytes (%) (Auto) 10.8 % (10.0-50.0) Monocytes (%) (Auto) 10.9 % (0.0-12.0) Eosinophils (%) (Auto) 2.1 % (0.0-7.0) Basophils (%) (Auto) 0.7 % (0.0-2.0) Neutrophils # (Auto) 6.8 10 ^3/uL (1.6-8.6) Lymphocytes # (Auto) 1.0 10 ^3/uL (0.4-5.4) Monocytes # (Auto) 1.0 10 ^3/uL (0-1.3) Eosinophils # (Auto) 0.2 10 ^3/uL (0-0.8) Basophils # (Auto) 0.1 10 ^3/uL (0-0.2) Nucleated Red Blood Cells 0.0 % Sodium Level 141 mmol/L (136-145) Potassium Level 4.1 mmol/L (3.5-5.1) Chloride Level 110 mmol/L (98-107) Carbon Dioxide Level 26 mmol/L (20-31) Anion Gap 5 (5-15) Blood Urea Nitrogen 14 mg/dL (9-23) Creatinine 1.15 mg/dL (0.700-1.30) Glomerular Filtration Rate Calc 75 mL/min (>90) BUN/Creatinine Ratio 12.2 (10.0-20.0) Serum Glucose 89 mg/dL (74-106) Calcium Level 8.9 mg/dL (8.7-10.4) Magnesium Level 2.3 mg/dL (1.6-2.6) Total Bilirubin 0.6 mg/dL (0.2-1.0) Aspartate Amino Transferase (AST) 10 U/L (13-40) Alanine Aminotransferase (ALT) 11 U/L (7-40) Alkaline Phosphatase 49 U/L (46-116) Total Protein 6.9 g/dL (5.7-8.2) Albumin 4.6 g/dL (3.2-4.8) Urine Color Colorless (Yellow) Urine Clarity Clear (Clear) Urine pH 5.5 (5.0-9.0) Urine Specific [place] 1.006 (1.001-1.035) Urine Protein Negative (Negative) Urine Ketones Negative (Negative) Urine Blood Negative /uL (Negative) Urine Nitrite Negative (Negative) Urine Bilirubin Negative (Negative) Urine Urobilinogen Normal mg/dL (Negative) Urine Leukocyte Esterase Negative /uL (Negative) Urine RBC <1 /hpf (0 - 3) Urine WBC <1 /hpf (0 - 3) Urine Squamous Epithelial Cells Few /hpf (<5) Urine Bacteria None seen /hpf (None Seen) Urine Glucose Normal mg/dL (Normal) Urine Opiates Screen Neg (NEGATIVE) Urine Fentanyl Screen Neg (NEGATIVE) Urine Barbiturates Screen Neg (NEGATIVE) Urine Phencyclidine Screen Neg (NEGATIVE) Urine Amphetamines Screen Neg (NEGATIVE) Urine Benzodiazepines Screen Neg (NEGATIVE) Urine Cocaine Screen Neg (NEGATIVE) Urine Cannabinoids Screen Neg (NEGATIVE) Prothrombin Time 11.4 sec (9.3-11.8) Prothrombin Time INR 1.08 (0.9-1.15) Activated Partial Thromboplast Time 25.5 SEC (24.5-34.5) Test 06/29/24 09:28 06/28/24 17:25 D-Dimer, Quantitative 1.08 mg/L FEU (0.0-0.49) Hemoglobin A1c 5.1 % A1C (<5.7) Lactic Acid Level 1.2 mmol/L (0.4-2.0) Troponin I High Sensitivity 7 ng/L (</=54) Triglycerides Level 122 mg/dL (< 150) Cholesterol Level 106 mg/dL (< 200) LDL Cholesterol 51 mg/dL (< 100) HDL Cholesterol 36 mg/dL (40-59) Vitamin B12 Level 502 pg/mL (211-911) Vitamin D 25-Hydroxy 74.3 ng/mL (30.0-100) Thyroid Stimulating Hormone (TSH) 0.82 uIU/mL (0.55-4.78) B-Type Natriuretic Peptide 29.23 pg/mL (0-100) Other Laboratory Tests 07/02/24 04:54 Brief Hx & Hospital Course: This is a 53 years old male with past medical history of hypertension, congestive heart failure, coronary artery disease, prostate cancer, peptic ulcer disease with bleeding ulcer, PVC came to emergency department because syncopal episode for four days that get worsening on the day of admission. Patient was found to have SVT and acute coronary syndrome. The patient subsequently had angiogram done by dr Orellana. It show: Nonobstructive coronary artery disease LVEF of 55% with increased LVEDP (21 mm Hg).Consider ICD for sustained ventricular tachycardia For now, continue Amiodarone drip. Dr. Moreno see patient in insert the AICD dual pacemaker to prevent sudden syndrome. The patient AICD was insert, the patient had no lightheadedness or dizziness today. So I am going to discharge the patient home today. Advised the patient to follow up with primary care physician 1-2 weeks. Follow up with per schedule. Activity as tolerated. Diet per home diet. Recommend low-salt low-cholesterol diet Physical exam: HEENT: Normocephalic atraumatic pupils equal react to light and accommodation. Extraocular muscles intact, conjunctiva pink, oropharynx moist, no thrush, no exudate. Lymphatic: No lymphadenopathy Cardiovascular exam: S1, S2 was heard. No murmurs, rubs, gallops Lung: Clear on auscultation bilaterally, no wheeze, rale, rhonchi. GI: Abdominal soft, nondistended, nontenderness, positive bowel sounds. Extremity: No crepitus, cyanosis, edema. Pedal pulses present bilateral. Full range of motion. Skin: Normal turgor, no rash. Psych: Alert, oriented x3. Neurology: No focal deficits, cranial nerve II to XII grossly intact. Condition at Discharge: Stable Final Diagnosis/Problems List (1) SVT (supraventricular tachycardia) status post AICD placement (2) ACS (acute coronary syndrome) (3) Acute chest pain Discharge Disposition: Home Discharge Instruct/Medications Diet: Cardiac 2g Na,low cholest Activity: No Restrictions, As Tolerated Follow Up/Referral: dr Moreno per schedule PCP 1-2 weeks Medications: resume home meds Discharge Statement: "Patient was advised to return to the ER or call 911 if any headaches, dizziness, shortness of breath, chest pain, abdominal pain, bleeding, fevers, or worsening of medical condition. Patient was counseled about treatment plan, medications, possible side effects, patientverbalized understanding. All questions were answered to the best of my ability. This discharge took greater then 30 minutes in planning, reviewing documentation, counseling the patient, and discussing with other team members." ASSESSMENT ASSESSMENT Assessment chest pain Date of Service: Jul 04, 2024 Billing Provider: TYE MORSE MD Common Visit Codes: 94306-XUD/OBS DISCH DAY >30min TEY MORSE MD Jul 04, 2024 12:06
[2024-07-04] MEDS ORDERED: HYDR-4902 PO (17:25)
--- NOTE | 2024-07-05 09:26 | ECG ---
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
--- NOTE | 2024-07-05 10:05 | ECG ---
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
== END 2024-07-04 13:20 | disposition home or self-care (01) | DRG 275 ==
LOC: ER 16:58 → EDBD 16:58 → TELE 20:33 → TELE-CENTR 22:30
PROVIDERS: ADMIT Hospitalist; ATTEND Internal Medicine
PROC: 4A023N7 Measurement of Cardiac Sampling and Pressure, Left Heart, Percutaneous Approach (ICD-10-PCS; 2024-07-01)
PROC: B211YZZ Fluoroscopy of Multiple Coronary Arteries using Other Contrast (ICD-10-PCS; 2024-07-01)
PROC: B215YZZ Fluoroscopy of Left Heart using Other Contrast (ICD-10-PCS; 2024-07-01)
PROC: 05HC33Z Insertion of Infusion Device into Left Basilic Vein, Percutaneous Approach (ICD-10-PCS; 2024-07-01)
PROC: B54NZZA Ultrasonography of Left Upper Extremity Veins, Guidance (ICD-10-PCS; 2024-07-01)
PROC: 0JH608Z Insertion of Defibrillator Generator into Chest Subcutaneous Tissue and Fascia, Open Approach (ICD-10-PCS; principal; 2024-07-03)
PROC: 02H63KZ Insertion of Defibrillator Lead into Right Atrium, Percutaneous Approach (ICD-10-PCS; 2024-07-03)
PROC: 02HK3KZ Insertion of Defibrillator Lead into Right Ventricle, Percutaneous Approach (ICD-10-PCS; 2024-07-03)
PROC: B517YZZ Fluoroscopy of Left Subclavian Vein using Other Contrast (ICD-10-PCS; 2024-07-03)
DX: I47.10 Supraventricular tachycardia, unspecified (principal); N17.0 Acute kidney failure with tubular necrosis; I24.9 Acute ischemic heart disease, unspecified; I50.22 Chronic systolic (congestive) heart failure; I42.8 Other cardiomyopathies; I11.0 Hypertensive heart disease with heart failure; D72.829 Elevated white blood cell count, unspecified; E87.6 Hypokalemia; I49.3 Ventricular premature depolarization; K21.9 Gastro-esophageal reflux disease without esophagitis; M10.9 Gout, unspecified; F41.9 Anxiety disorder, unspecified; E66.01 Morbid (severe) obesity due to excess calories; I25.10 Atherosclerotic heart disease of native coronary artery without angina pectoris; F17.200 Nicotine dependence, unspecified, uncomplicated; E78.5 Hyperlipidemia, unspecified; I48.91 Unspecified atrial fibrillation; Z85.46 Personal history of malignant neoplasm of prostate; Z95.810 Presence of automatic (implantable) cardiac defibrillator; Z90.79 Acquired absence of other genital organ(s); Z90.49 Acquired absence of other specified parts of digestive tract; Z83.3 Family history of diabetes mellitus; Z87.11 Personal history of peptic ulcer disease; Z68.34 Body mass index [BMI] 34.0-34.9, adult; Z79.899 Other long term (current) drug therapy; Z80.9 Family history of malignant neoplasm, unspecified
CPT/HCPCS: 33249; 36012; 36415; 71045; 71275; 73620; 80048; 80053; 80061; 80307; 81001; 82306; 82607; 83036; 83605; 83735; 83880; 84443; 84484; 85025; 85379; 85610; 85730; 86850; 86900; 86901; 87081; 93005; 93306; 93458; 93886; 93970; 99152; C1894; G0378; J2003; J2250

== ENCOUNTER 2024-08-01 08:17 | Inpatient (IN) | payer OTHER ==
[~2024-08-01] VITALS: Ht 180.3 cm; Wt 104.1 kg
[~2024-08-01 08:17] MED LIST changes: -ALL100T PO; +ALLO100T PO; -CARV-214 PO; -CARV12.544 PO; +GABA-1250 PO; +HYDR-4902 PO; +ISOS10TA5 PO; -ISOS5TAB PO; -LACT10SO3 PO; -SACU1TAB7 PO; -SUCR1SUS26 GT; +SUCR1TAB PO; -TRAZ1TAB12 PO
--- NOTE | 2024-08-01 09:01 | ED.PDOC ---
HPI Comments 53 year old male CLAUDIA presents to the ED with chief complaint of chest pain. Patient reports that he had a pacemaker placed 3 weeks ago, however, it was not working correctly and he had it replaced by his room clerk Dr. Moreno. Patient relays that about 10 days ago, he started to experience intermittent, sharp, 9/10 left sided chest pain with associated nausea, vomiting, and diarrhea. Patient denies any SOB, cough, fever, chills, dizziness, or weakness. Chief Complaint: Chest Pain Time Seen by MD: 08:56 Primary Care Provider: JULIA Reviewed Notes: Nurses Notes, Appliance Service Technician Notes, Medications, Allergies Allergies: Coded Allergies: No Known Drug Allergy (Verified Allergy, Unknown, 04/08/22) Home Meds Active Scripts Hydrocodone-Acetaminophen (Hydrocodone Bitartrate/AC 5-325 mg) 1 Tab Tab, 1 TAB PO Q6HPRN PRN, #20 TAB Prov:TYE MORSE MD 07/04/24 Pantoprazole Sodium Sesquihydr (Pantoprazole Sodium) 40 Mg Tab, 40 MG PO BID for 30 Days, #60 TAB Prov:SHANTEL VARGAS RESIDENT 05/03/24 Reported Medications Hydroxyzine Hcl (Hydroxyzine Hcl) 25 Mg Tab, 1 TAB PO HS for 30 Days, #30 07/01/24 Baclofen (Baclofen) 10 Mg Tab, 1 TAB PO DAILY for 30 Days, #30 07/01/24 Gabapentin (Gabapentin) 300 Mg Cap, 1 CAP PO BID for 30 Days, #60 07/01/24 Isosorbide Mononitrate (Isosorbide Mononitrate) 10 Mg Tab, 5 MG PO BID, TAB 06/29/24 Sucralfate (Sucralfate) 1 Gm Tab, 1 TAB PO BID 06/28/24 Allopurinol (Allopurinol) 100 Mg Tab, 1 TAB PO TID 06/28/24 Bupropion Hcl (Bupropion Hcl Er) 100 Mg Tab, 1 TAB PO QAM for 30 Days, #30 05/02/24 Potassium Chloride (POTASSIUM CHLORIDE CR) 10 Meq Tb, 20 MEQ PO BID, TAB 05/01/24 Clonidine Hydrochloride (Clonidine Hcl) 0.1 Mg Tab, 0.1 MG PO BID for 30 Days, MG 05/01/24 Furosemide (Furosemide) 40 Mg Tab, 1 TAB PO DAILY 04/30/24 Lorazepam (Lorazepam) 1 Mg Tab, 1 TAB PO BID 04/30/24 Hydralazine HCl (Hydralazine HCl) 25 Mg Tab, 1 TAB PO BID 04/30/24 Amiodarone HCl (Amiodarone HCl) 200 Mg Tab, 1 TAB PO DAILY 04/30/24 Atorvastatin Calcium (ATORVASTATIN CALCIUM) 20 Mg Tab, 1 TAB PO DAILY 04/30/24 Hydrochlorothiazide W/Triamter (Triamterene/Hydrochloroth) 1 Cap Cap, 1 CAP PO DAILY, CAP 04/08/22 Amlodipine Besylate (Amlodipine Besylate) 5 Mg Tab, 5 MG PO DAILY for HTN, MG 04/08/22 Information Source: Patient, Emergency Med Personnel Mode of Arrival: EMS Severity: Moderate Timing: Weeks Duration: Since onset Prehospital treatment: None Location: Chest (L) Radiation: No Radiation Quality: Sharp Onset: At Rest Cardiac Risk Factors: HTN PE Risk Factors: None History of: None Modifying Factors: Nothing Associated Signs and Symptoms: N/V Past Medical History PAST MEDICAL HISTORY: Anxiety, Arthritis, Cancer, CHF, HTN Surgical History: Appendectomy, Pacemaker, Tonsillectomy Family History Family History: Reviewed,noncontributory to illness, Family hx of Cancer Social History Smoker: Other Alcohol: Occasionally Drugs: Denies Drug Use Lives In: Home Constitutional: denies: chills, diaphoresis, fatigue, fever, malaise, sweats, weakness, others EENTM: denies: blurred vision, double vision, ear bleeding, ear discharge, ear drainage, ear pain, ear ringing, eye pain, eye redness, hearing loss, mouth pain, mouth swelling, nasal discharge, nose bleeding, nose congestion, nose pain, photophobia, tearing, throat pain, throat swelling, voice changes, others Respiratory: denies: cough, hemoptysis, orthopnea, SOB at rest, shortness of breath, SOB with excertion, stridor, wheezing, others Cardiovascular: reports: chest pain; denies: dizzy spells, diaphoresis, Dyspnea on exertion, edema, irregular heart beat, left arm pain, lightheadedness, palpitations, PND, syncope, others Gastrointestinal: reports: diarrhea, nausea, vomiting; denies: abdomen distended, abdominal pain, blood streaked bowels, constipated, dysphagia, dif ficulty swallowing, hematemesis, melena, poor appetite, poor fluid intake, rectal bleeding, rectal pain, others Genitourinary: denies: burning, dysuria, flank pain, frequency, hematuria, incontinence, penile discharge, penile sore, pain, testicle pain, testicle swelling, urgency, others Neurological: denies: dizziness, fainting, headache, left sided numbness, left sided weakness, numbness, paresthesia, pre-existing deficit, right sided numbness, right sided weakness, seizure, speech problems, tingling, tremors, weakness, others Musculoskeletal: denies: back pain, gout, joint pain, joint swelling, muscle pain, muscle stiffness, neck pain, others Integumetry: denies: bruises, change in color, change in hair/nails, dryness, laceration, lesions, lumps, rash, wounds, others Allergic/Immunocompromised: denies: Difficulty Healing, Frequent Infections, Hives, Itching, others Hematologic/Lymphatic: denies: anemia, blood clots, easy bleeding, easy bruising, swollen glands, others Endocrine: denies: excessive hunger, excessive sweating, excessive thirst, excessive urination, flushing, intolerance to cold, intolerance to heat, unexplained weight gain, unexplained weight loss, others Psychiatric: denies: anxiety, bipolar disorder, depression, hopeless, panic disorder, schizophrenia, sleepless, suicidal, others All Other Systems: Reviewed and Negative Physical Exam General Appearance: Moderate Distress, Normal HEENT: Normal ENT Inspection, PERRL/EOMI Neck: Full Range of Motion, Non-Tender, Normal, Normal Inspection Respiratory: Chest Non-Tender, Lungs Clear, No Accessory Muscle Use, No Respiratory Distress, Normal Breath Sounds Cardiovascular: No Edema, No JVD, No Murmur, No Gallop, Normal Peripheral Pulses, Regular Rate/Rhythm Breast Exam: Deferred Gastrointestinal: No Organomegaly, Non Tender, No Pulsatile Mass, Normal Bowel Sounds, Soft Genitalia: Deferred Pelvic: Deferred Rectal: Deferred Extremities: No calf tenderness, Normal capillary refill, Normal inspection, Normal range of motion, Non-tender, No pedal edema Musculoskeletal : Apperance: Normal Neurologic: Alert, rand tacker II-XII nml as Tested, No Motor Deficits, Normal Affect, Normal Mood, No Sensory Deficits Cerebellar Function: NOT DONE Reflexes: NOT DONE Skin: Dry, Normal Color, Warm Peripheral Pulses: 3+ Radial (R), 3+ Radial (L) Lymphatic: No Adenopathy Was a procedure done? Was a procedure done?: No CP Differential Dx Differential Diagnosis: A-fib, A-Flutter, Angina, Anxiety / Panic Attack, Atrial Dysrhythmia, Electrolyte Disorder X-Ray, Labs, Meds, VS Vital Signs Date Time Temp Pulse Resp B/P (MAP) Pulse Ox O2 Delivery O2 Flow Rate FiO2 08/01/24 10:13 60 14 99 Nasal Cannula* 2 28 08/01/24 10:13 60 14 123/81 (95) 99 08/01/24 10:13 99 Nasal Cannula* 2 28 08/01/24 09:59 68 08/01/24 08:27 67 08/01/24 08:20 98.8 102 17 134/81 (98) 98 Lab Test 08/01/24 08:53 Range/Units White Blood Count 8.1 4.4-10.8 10^3/uL Red Blood Count 3.54 L 4.5-5.90 10^6/uL Hemoglobin 10.6 L 13.5-17.5 g/dL Hematocrit 32.2 L 41.0-53.0 % Mean Corpuscular Volume 91.1 80.0-100.0 fL Mean Corpuscular Hemoglobin 30.1 28.0-32.0 pg Mean Corpuscular Hemoglobin Concent 33.0 32.0-36.0 g/dL Red Cell Distribution Width 13.7 11.8-14.3 % Platelet Count 202 140-450 10^3/uL Mean Platelet Volume 6.6 L 6.9-10.8 fL Neutrophils (%) (Auto) 73.7 37.0-80.0 % Lymphocytes (%) (Auto) 9.0 L 10.0-50.0 % Monocytes (%) (Auto) 10.5 0.0-12.0 % Eosinophils (%) (Auto) 6.0 0.0-7.0 % Basophils (%) (Auto) 0.8 0.0-2.0 % Neutrophils # (Auto) 5.9 1.6-8.6 10 ^3/uL Lymphocytes # (Auto) 0.7 0.4-5.4 10 ^3/uL Monocytes # (Auto) 0.8 0-1.3 10 ^3/uL Eosinophils # (Auto) 0.5 0-0.8 10 ^3/uL Basophils # (Auto) 0.1 0-0.2 10 ^3/uL Nucleated Red Blood Cells 0.0 % Prothrombin Time 11.6 9.3-11.8 sec Prothrombin Time INR 1.10 0.9-1.15 Activated Partial Thromboplast Time 26.2 24.5-34.5 SEC Sodium Level 140 136-145 mmol/L Potassium Level 2.8 L 3.5-5.1 mmol/L Chloride Level 103 98-107 mmol/L Carbon Dioxide Level 30 20-31 mmol/L Anion Gap 7 5-15 Blood Urea Nitrogen 18 9-23 mg/dL Creatinine 1.77 H 0.700-1.30 mg/dL Glomerular Filtration Rate Calc 45 >90 mL/min BUN/Creatinine Ratio 10.2 10.0-20.0 Serum Glucose 92 74-106 mg/dL Calcium Level 9.8 8.7-10.4 mg/dL Troponin I High Sensitivity 21 </=54 ng/L Chest XR: FINDINGS: Lines and Tubes: Left sided pacemaker Lungs: No focal consolidation. Pleura: No effusion. No pneumothorax. Cardiomediastinal contours: Unremarkable Bones: No acute osseous abnormality. IMPRESSION: No acute cardiopulmonary disease. Patient alert. Complaining of chest pain. Has a pacemaker. Chest x-ray reviewed does not show any acute changes. Creatinine elevated pain Reviewed his previous visit. Cardiology consultation. Cardiac marker within normal limits. Images Reviewed?: Images reviewed and evaluated by me Time of 1ST Reevaluation: 09:56 Reevaluation 1ST: Unchanged Patient Education/Counseling: Diagnosis, Treatment Family Education/Counseling: No Family Present Departure 1 Departure Time of Disposition: 10:51 Impression: Primary Impression: Chest pain of unknown etiology Additional Impressions: JACINTA (acute kidney injury) Hypokalemia Disposition: 09 ADMITTED INPATIENT Admit to: Med Surg Condition: Guarded Critical Care Note Critical Care Time?: Yes (45 min-critical care time only) Stability Stability form required: No Heart Score Heart Score: Heart Score Response (Comments) Value History Moderate Suspicious 1 EKG Normal 0 Age 45-64 1 Risk Factors >3 or Hx ASHD 2 Troponin Normal limit 0 Total 4 I personally scribed for RACIEL GOODRICH MD ([email or web address]) on 08/01/24 at 09:00. Electronically submitted by Girma Kwok ([email or web address]). I personally scribed for RACIEL GOODRICH MD ([email or web address]) on 08/01/24 at 09:38. Electronically submitted by Girma Kwok ([email or web address]). RACIEL GOODRICH MD Aug 01, 2024 09:00
[2024-08-01 09:10] LABS: Basophils # (auto) 0.1 10 ^3/uL (0-0.2); Basophils % (auto) 0.8 % (0.0-2.0); Eosinophils # (auto) 0.5 10 ^3/uL (0-0.8); Hematocrit 32.2 % (41.0-53.0); Hemoglobin 10.6 g/dL (13.5-17.5); Lymphocytes # (auto) 0.7 10 ^3/uL (0.4-5.4); Mean Corpuscular Hemoglobin 30.1 pg (28.0-32.0); Mean Corpuscular Volume 91.1 fL (80.0-100.0); Monocytes # (auto) 0.8 10 ^3/uL (0-1.3); Monocytes % (auto) 10.5 % (0.0-12.0); Neutrophils # (auto) 5.9 10 ^3/uL (1.6-8.6); Neutrophils % (auto) 73.7 % (37.0-80.0); Platelet Count (auto) 202 10^3/uL (140-450); Red Blood Cells 3.54 10^6/uL (4.5-5.90); Red Cell Distribution Width 13.7 % (11.8-14.3); White Blood Cell 8.1 10^3/uL (4.4-10.8)
[2024-08-01 09:27] LABS: Chloride 103 mmol/L (98-107); Sodium 140 mmol/L (136-145)
[2024-08-01 09:28] LABS: Anion Gap 7 (5-15); Calcium 9.8 mg/dL (8.7-10.4); Carbon Dioxide 30 mmol/L (20-31); Potassium 2.8 mmol/L (3.5-5.1)
[2024-08-01 09:29] LABS: INR 1.1 (0.9-1.15); Partial Thromboplastin Time 26.2 SEC (24.5-34.5); Prothrombin Time 11.6 sec (9.3-11.8)
[2024-08-01 09:33] LABS: BUN/Creatinine Ratio 10.2 (10.0-20.0); Blood Urea Nitrogen 18 mg/dL (9-23); Glucose 92 mg/dL (74-106)
--- NOTE | 2024-08-01 09:35 | DVH ---
CHEST RADIOGRAPH Indication: cough Technique: Single frontal view of the chest was obtained Comparison: XY CHEST XRAY 1 VIEW on DOS: 07/04/24, XY CHEST PORTABLE on DOS: 07/03/24, XY CHEST XRAY 1 VIEW on DOS: 06/28/24, XY CHEST PORTABLE on DOS: 06/25/24, XY CHEST XRAY 1 VIEW on DOS: 05/01/24 FINDINGS: Lines and Tubes: Left sided pacemaker Lungs: No focal consolidation. Pleura: No effusion. No pneumothorax. Cardiomediastinal contours: Unremarkable Bones: No acute osseous abnormality. IMPRESSION: No acute cardiopulmonary disease.
[2024-08-01 10:13] VITALS: PULSE 60; RESP 14; O2SAT 99
[2024-08-01] MEDS: POTASSIUM EFFERVESENT TAB 25 MEQ PO ONE ×2 (12:02→21:08)
[2024-08-01] MEDS: PANTOPRAZOLE 40 MG/10 ML VIAL INJ IV ONE (12:02)
[2024-08-01] MEDS: SODIUM CHLORIDE 0.9% 1,000 ML IV ONE (12:04)
[2024-08-01 12:24] LABS: Urine Bacteria None Seen /hpf (None Seen)
[2024-08-01 12:35] LABS: Urine Blood Negative /uL (Negative); Urine Clarity Clear (Clear); Urine Color Light-Yellow (Yellow); Urine Protein, UAD Negative (Negative); Urine Specific Gravity 1.008 (1.001-1.035); Urine Urobilinogen Normal (Negative); Urine WBC 1 /hpf (0 - 3); Urine pH 5.5 (5.0-9.0)
[2024-08-01] MEDS ORDERED: ONDANSETRON HCL 4 MG/2 ML VIAL IV PRN (13:00)
[2024-08-01] MEDS ORDERED: DOCUSATE SOD 100 MG CAP PO PRN (13:00)
[2024-08-01] MEDS ORDERED: MORPHINE SULFATE INJ 2 MG/ml SYRG IV PRN (13:00)
[2024-08-01] MEDS ORDERED: NITROGLYCERIN 0.4 MG SL TAB SL PRN (13:00)
--- NOTE | 2024-08-01 13:20 | DVHHP2 ---
History of Present Illness Reason for Visit: Chest Pain History of Present Illness Jayme Solitario is a 53-year-old male with past medical history of hypertension, anxiety, CHF, AICD, and arthritis, who came in with complaints of chest pain, abdominal pain, for 10 days and black stools and vomiting for 8 days. Patient states that he finally came into the hospital because his symptoms were worsening. He has been unable to keep food or liquid down for the last week, was becoming increasingly weaker and dehydrated. Cardiovascular: CHF, HTN, hyperipidemia Past Surgical History: Appendectomy, Other (Pacemaker), Tonsillectomy Family History: None Smoke: No ALCOHOL: none Drugs: None Lives: with Family Domestic Violence: Neg Review of Systems Constitutional: Yes: Weakness, Malaise; No: Fever, Chills, Sweats, Other Eyes: No: Pain, Vision change, Conjunctivae inflammation, Eyelid inflammation, Other, Redness ENT: No: Ear pain, Ear discharge, Nose pain, Nose discharge, Nose congestion, Mouth pain, Mouth swelling, Throat pain, Throat swelling, Other Respiratory: No: Cough, Dry, Shortness of breath, SOB with excertion, Wheezing, Hemoptysis, Pleuritic Pain, Sputum, Wheezing, Other Cardiovascular: Chest Pain; No: Palpitations, Orthopnea, Paroxysmal Noc. Dyspnea, Edema, Lt Headedness, Other Gastrointestinal: Nausea, Vomiting, Abdominal Pain, Diarrhea; No: Constipation, Melena, Hematochezia, Other Genitourinary: No Dysuria, No Frequency, No Incontinence, No Hematuria, No Retention, No Other Musculoskeletal: No: other, neck pain, shoulder pain, arm pain, back pain, hand pain, leg pain, foot pain Skin: No: Rash, Lesions, Jaundice, Bruising, Other Neurological: No: Weakness, Numbness, Incoordination, Change in speech, Confusion, Seizures, Other Allergies: Coded Allergies: No Known Drug Allergy (Verified Allergy, Unknown, 04/08/22) Exam Vital Signs Vital Signs Date Time Temp Pulse Resp B/P (MAP) Pulse Ox O2 Delivery O2 Flow Rate FiO2 08/01/24 12:00 60 08/01/24 10:13 14 99 Nasal Cannula* 2 28 08/01/24 10:13 123/81 (95) 08/01/24 08:20 98.8 General Appearance: Alert, Oriented X3, Cooperative, moderate distress HEENT: Atraumatic, PERRLA, Other (dry mucous membrains) Respiratory: Clear to auscultation, Normal air movement Cardiovascular: Normal S1, Normal S2, Other (Paced) Abdominal: Normal bowel sounds, Soft, Other (C/O abd pain, nausea) Extremities: No clubbing, No cyanosis, No edema, Normal pulses Skin: No rashes, No breakdown, No significant lesion Neuro: Normal gait, Normal speech, Strength at 5/5 X4 ext Psych/Mental Status: Mental status NL, Mood NL Labs/Xrays Labs Test 08/01/24 09:45 08/01/24 08:53 Range/Units Urine Color Light-yellow Yellow Urine Clarity Clear Clear Urine pH 5.5 5.0-9.0 Urine Specific [place] 1.008 1.001-1.035 Urine Protein Negative Negative Urine Ketones Negative Negative Urine Blood Negative Negative /uL Urine Nitrite Negative Negative Urine Bilirubin Negative Negative Urine Urobilinogen Normal Negative mg/dL Urine Leukocyte Esterase Negative Negative /uL Urine RBC <1 0 - 3 /hpf Urine WBC 1 0 - 3 /hpf Urine Squamous Epithelial Cells None seen <5 /hpf Urine Bacteria None seen None Seen /hpf Urine Glucose Normal Normal mg/dL White Blood Count 8.1 4.4-10.8 10^3/uL Red Blood Count 3.54 L 4.5-5.90 10^6/uL Hemoglobin 10.6 L 13.5-17.5 g/dL Hematocrit 32.2 L 41.0-53.0 % Mean Corpuscular Volume 91.1 80.0-100.0 fL Mean Corpuscular Hemoglobin 30.1 28.0-32.0 pg Mean Corpuscular Hemoglobin Concent 33.0 32.0-36.0 g/dL Red Cell Distribution Width 13.7 11.8-14.3 % Platelet Count 202 140-450 10^3/uL Mean Platelet Volume 6.6 L 6.9-10.8 fL Neutrophils (%) (Auto) 73.7 37.0-80.0 % Lymphocytes (%) (Auto) 9.0 L 10.0-50.0 % Monocytes (%) (Auto) 10.5 0.0-12.0 % Eosinophils (%) (Auto) 6.0 0.0-7.0 % Basophils (%) (Auto) 0.8 0.0-2.0 % Neutrophils # (Auto) 5.9 1.6-8.6 10 ^3/uL Lymphocytes # (Auto) 0.7 0.4-5.4 10 ^3/uL Monocytes # (Auto) 0.8 0-1.3 10 ^3/uL Eosinophils # (Auto) 0.5 0-0.8 10 ^3/uL Basophils # (Auto) 0.1 0-0.2 10 ^3/uL Nucleated Red Blood Cells 0.0 % Prothrombin Time 11.6 9.3-11.8 sec Prothrombin Time INR 1.10 0.9-1.15 Activated Partial Thromboplast Time 26.2 24.5-34.5 SEC Sodium Level 140 136-145 mmol/L Potassium Level 2.8 L 3.5-5.1 mmol/L Chloride Level 103 98-107 mmol/L Carbon Dioxide Level 30 20-31 mmol/L Anion Gap 7 5-15 Blood Urea Nitrogen 18 9-23 mg/dL Creatinine 1.77 H 0.700-1.30 mg/dL Glomerular Filtration Rate Calc 45 >90 mL/min BUN/Creatinine Ratio 10.2 10.0-20.0 Serum Glucose 92 74-106 mg/dL Calcium Level 9.8 8.7-10.4 mg/dL Troponin I High Sensitivity 21 </=54 ng/L CHEST RADIOGRAPH FINDINGS: Lines and Tubes: Left sided pacemaker Lungs: No focal consolidation. Pleura: No effusion. No pneumothorax. Cardiomediastinal contours: Unremarkable Bones: No acute osseous abnormality. IMPRESSION: No acute cardiopulmonary disease. Assessment/Plan Assessment/Plan Assessment: JACINTA (acute kidney injury), GI Bleed, Dehydration, Hypokalemia, CHF, Hypertension, Anxiety, Plan: Admit to Tele, GI consult, Cardiology consult, Stool for occult blood, Protonix IV BID, IV hydration, Pacemaker interrogation, Manage/Monitor electrolytes, Home medications reconciled, Plan discussed with: Patient My Orders Orders - DANIELE GARDNER SCRAP BURNER Procedure Category Date Status Time Bottle Washer To Assess ORDERS 08/01/24 Transmitted Pacemaker 11:43 Admit ADMIT 08/01/24 Verified 12:59 Code Status CODE 08/01/24 Verified 12:59 Hydrocodone-Acet PHA 08/01/24 Verified 5/325mg Tab ([place] 13:00 Ondansetron Hcl PHA 08/01/24 Verified (Zofran) 13:00 Docusate Sodium PHA 08/01/24 Verified Capsule (Colace 13:00 Complete Blood Count LAB 08/02/24 Verified 04:00 Comprehensive LAB 08/02/24 Verified Metabolic Panel 04:00 Condition: Serious [place] 08/01/24 Verified 12:59 Acetaminophen Tablet PHA 08/01/24 Verified (Tylenol Tablet) 13:00 Clear Liq Diet DIET 08/01/24 Verified Lunch Nitroglycerin PHA 08/01/24 Verified Sublingual (Ntrostat 13:00 Morphine Sulfate PHA 08/01/24 Verified Injection 13:00 Stat Ekg For Chest [place] 08/01/24 Verified Pain 12:59 Notify Md Of Changes [facility] 08/01/24 Verified From Base 12:59 Crew Person For [place] 08/01/24 Verified 24 Hours 12:59 Emergency Dysrhythmia [facility] 08/01/24 Verified Protocol 12:59 Rhythm Strips Once [facility] 08/01/24 Verified Every Shift 12:59 Oxygen By Nasal RT 08/01/24 Verified Cannula 12:59 * Gi Dvh Crew Member CONS 08/01/24 Verified 12:59 Stool Occult Blood LAB 08/01/24 Verified 12:59 Potassium LAB 08/01/24 Verified 15:00 Magnesium LAB 08/01/24 Verified 15:00 Pantoprazole PHA 08/01/24 Verified (Protonix) 22:00 Amiodarone Tablet PHA 08/02/24 Verified (Cordarone Tablet) 10:00 Amlodipine Tablet PHA 08/02/24 Verified (Norvasc Tablet) 10:00 Atorvastatin (Lipitor) PHA 08/02/24 Verified 10:00 Clonidine Hcl Tablet PHA 08/01/24 Verified (Catapres Tablet) 22:00 Gabapentin Capsule PHA 08/01/24 Verified (Neurontin Capsule) 22:00 Hydralazine Hcl PHA 08/01/24 Verified Tablet (Apresoline 22:00 (Nf) Lorazepam PHA 08/01/24 Verified 22:00 Date of Service: Aug 01, 2024 Billing Provider: DANIELE GARDNER Common Visit Codes: [id number] INP/OBS CARE (MOD) DANIELE GARDNER Aug 01, 2024 13:20
[2024-08-01 15:40] LABS: Magnesium 1.8 mg/dL (1.6-2.6); Potassium 3.1 mmol/L (3.5-5.1)
[2024-08-01 18:06] VITALS: BP 150/87; PULSE 68; RESP 18; TEMP 97.9; O2SAT 95
[2024-08-01 20:00] VITALS: PULSE 60
[2024-08-01 21:00] VITALS: BP 128/77; PULSE 60; RESP 20; TEMP 97.9; O2SAT 95
[2024-08-01] MEDS: PANTOPRAZOLE 40 MG/10 ML VIAL INJ IV SCH (21:09)
[2024-08-01] MEDS: LORazepam 0.5 MG TAB PO PRN (21:09)
[2024-08-01] MEDS: cloNIDine HCL 0.1 MG TAB PO SCH (21:10)
[2024-08-01] MEDS: ATORVASTATIN 20 MG TAB PO SCH (21:10)
[2024-08-01] MEDS: hydrALAZINE HCL 25 MG TAB PO SCH (21:11)
[2024-08-01] MEDS: GABAPENTIN 300 MG CAP PO SCH (21:11)
[2024-08-02] VITALS (8 sets, daily range): BP systolic 110–140; BP diastolic 61–90; PULSE 59–78; RESP 16–20; TEMP 97.8–98.7; O2SAT 91–97
--- NOTE | 2024-08-02 06:48 | ECG ---
[facility] Test Date: 2024-08-01 Test Time: 08:27:35 Pat Name: CLARISA GONZALEZ Department: ER Room: 0216T Gender: M Administrative Liaison: JUSTINE : 1970 Requested By: RACIEL GOODRICH Order Number: [id number] Reading MD: Measurements Intervals [place] Rate: 67 P: 0 OR: 145 QRS: -57 QRSD: 114 T: -8 QT: 516 QTc: 545 Interpretive Statements Atrial-paced rhythm Borderline IVCD with LAD Inferior infarct, old Probable anterior infarct, age indeterminate Prolonged QT interval Please click the below link to view image of tracing.
[2024-08-02 07:01] LABS: Albumin 3.9 g/dL (3.2-4.8); Alkaline Phosphatase 68 U/L (46-116); Anion Gap 9 (5-15); BUN/Creatinine Ratio 10.5 (10.0-20.0); Blood Urea Nitrogen 16 mg/dL (9-23); Calcium 9.6 mg/dL (8.7-10.4); Carbon Dioxide 30 mmol/L (20-31); Chloride 103 mmol/L (98-107); Glucose 84 mg/dL (74-106); Sodium 142 mmol/L (136-145)
[2024-08-02 07:02] LABS: Bilirubin, Total 0.5 mg/dL (0.2-1.0)
[2024-08-02 07:04] LABS: Alanine Aminotransferase 176 U/L (7-40); Aspartate Aminotransferase 144 U/L (13-40); Potassium 3.4 mmol/L (3.5-5.1); Total Protein 5.6 g/dL (5.7-8.2)
[2024-08-02 09:38] LABS: Basophils # (auto) 0.1 10 ^3/uL (0-0.2); Basophils % (auto) 1.3 % (0.0-2.0); Eosinophils # (auto) 0.4 10 ^3/uL (0-0.8); Eosinophils % (auto) 6.3 % (0.0-7.0); Hematocrit 30.2 % (41.0-53.0); Hemoglobin 10.3 g/dL (13.5-17.5); Lymphocytes % (auto) 16.3 % (10.0-50.0); Mean Corpuscular Hemoglobin 30.6 pg (28.0-32.0); Mean Corpuscular Hgb Conc. 34.2 g/dL (32.0-36.0); Mean Corpuscular Volume 89.4 fL (80.0-100.0); Monocytes # (auto) 0.7 10 ^3/uL (0-1.3); Monocytes % (auto) 11.8 % (0.0-12.0); Neutrophils # (auto) 3.8 10 ^3/uL (1.6-8.6); Neutrophils % (auto) 64.3 % (37.0-80.0); Platelet Count (auto) 188 10^3/uL (140-450); Red Blood Cells 3.37 10^6/uL (4.5-5.90); Red Cell Distribution Width 13.4 % (11.8-14.3); White Blood Cell 5.9 10^3/uL (4.4-10.8)
[2024-08-02] MEDS ORDERED: INDO50CA82 PO (10:14)
[2024-08-02] MEDS ORDERED: TRIA37.586 PO (10:17)
[2024-08-02] MEDS ORDERED: MAGN400T40 OR (10:18)
[2024-08-02] MEDS: amLODIPine BESYLATE 5 MG TAB PO SCH (11:12)
[2024-08-02] MEDS: AMIODARONE HCL 200 MG TAB PO SCH (11:13)
[2024-08-02] MEDS: TRIAMTER PO SCH (11:45)
[2024-08-02] MEDS: HYDROCHLOROTHIAZIDE PO SCH (11:45)
--- NOTE | 2024-08-02 12:45 | DVHPN2 ---
Subjective Patient denies having any more nausea and vomiting today. Did report having some loose stools. Reviewed: Care Plan, H&P, Labs, Medications, Previous Orders Changes from previous H/P or p: No Changes General: Per HPI Eyes: No Pain, No Vision change, No Conjunctivae inflammation, No Eyelid inflammation, No Other, No Redness ENT: No Ear pain, No Ear discharge, No Nose pain, No Nose discharge, No Nose congestion, No Mouth pain, No Mouth swelling, No Throat pain, No Throat swelling, No Other Cardiovascular: Chest Pain; No Palpitations, No Orthopnea, No Paroxysmal Noc. Dyspnea, No Edema, No Lt Headedness, No Other Respiratory: No Cough, No Dry, No Shortness of breath, No SOB with excertion, No Wheezing, No Hemoptysis, No Pleuritic Pain, No Sputum, No Other Gastrointestinal: Nausea, Vomiting, Abdominal Pain, Diarrhea; No Constipation, No Melena, No Hematochezia, No Other Genitourinary: No Dysuria, No Frequency, No Incontinence, No Hematuria, No Retention, No Other Musculoskeletal: No other, No neck pain, No shoulder pain, No arm pain, No back pain, No hand pain, No leg pain, No foot pain Skin: No Rash, No Lesions, No Jaundice, No Bruising, No Other Objective Vitals Vital Signs Date Time Temp Pulse Resp B/P (MAP) Pulse Ox O2 Delivery O2 Flow Rate FiO2 08/02/24 11:13 140/90 08/02/24 09:00 98.3 59 16 97 98.3 08/01/24 20:00 Room Air* 0 21 Intake/Output Intake and Output 08/02/24 07:00 Intake Total 320 ml Output Total 300 ml Balance 20 ml Intake Oral 320 ml Output Urine Total 300 ml # Voids 1 General Appearance: Alert, Oriented X3, Cooperative, No acute distress HEENT: Atraumatic, PERRLA Lungs: Clear to auscultation, Normal air movement Cardiovascular: Normal S1, Normal S2 Abdomen: Normal bowel sounds, No tenderness Musculoskeletal: Normal sensory function, Normal motor function Extremities: No clubbing, No cyanosis Neuro: Normal gait, Normal speech Psych/Mental Status: Mental status NL, Mood NL Medications Current Medications Medications Dose Ordered Sig/Yesica Route Start Time Stop Time Status Last Admin Dose Admin Acetaminophen/ Hydrocodone Bitart 1 tab Q4HP PRN PO 08/01/24 13:00 Ondansetron HCl 4 mg Q4HP PRN IV 08/01/24 13:00 Docusate Sodium 100 mg BIDPRN PRN PO 08/01/24 13:00 Acetaminophen 650 mg Q6HP PRN PO 08/01/24 13:00 Nitroglycerin 0.4 mg Q5MINP PRN SL 08/01/24 13:00 Morphine Sulfate 2 mg Q30M PRN IV 08/01/24 13:00 Pantoprazole Sodium 40 mg BID IV 08/01/24 22:00 08/02/24 11:12 40 MG Amiodarone HCl 200 mg DAILY PO 08/02/24 10:00 08/02/24 11:13 200 MG Amlodipine Besylate 5 mg DAILY PO 08/02/24 10:00 08/02/24 11:12 5 MG Atorvastatin Calcium 20 mg HS PO 08/01/24 22:00 08/01/24 21:10 20 MG Gabapentin 300 mg BID PO 08/01/24 22:00 08/02/24 11:12 300 MG Hydralazine HCl 25 mg BID PO 08/01/24 22:00 08/02/24 11:11 25 MG Lorazepam 1 mg BID PRN PO 08/01/24 14:00 08/02/24 12:11 1 MG Potassium Chloride 40 meq/ Sodium Chloride 1,020 ml @ 100 mls/hr [id number] IV 08/02/24 11:45 08/02/24 21:56 Allopurinol 100 mg TID PO 08/02/24 14:00 Baclofen 10 mg DAILY PO 08/03/24 10:00 Furosemide 40 mg DAILY PO 08/03/24 10:00 Sucralfate 1 gm BID PO 08/02/24 22:00 Patient Own Medication 1 cap DAILY PO 08/02/24 11:45 Hydroxyzine Pamoate 25 mg HS PO 08/02/24 22:00 Magnesium Oxide 400 mg DAILY PO 08/03/24 10:00 Metronidazole 100 ml @ 100 mls/hr Q8HR IV 08/02/24 14:00 Laboratory Results Laboratory Tests 08/02/24 05:39 08/02/24 08:53 Chemistry Test 08/01/24 15:16 08/02/24 05:39 Magnesium Level 1.8 mg/dL (1.6-2.6) Albumin 3.9 g/dL (3.2-4.8) Calcium Level 9.6 mg/dL (8.7-10.4) Total Protein 5.6 g/dL (5.7-8.2) L LFT Test 08/02/24 05:39 Alanine Aminotransferase (ALT) 176 U/L (7-40) H Alkaline Phosphatase 68 U/L (46-116) Aspartate Amino Transferase (AST) 144 U/L (13-40) H Total Bilirubin 0.5 mg/dL (0.2-1.0) Urinalysis Test 08/01/24 09:45 Urine Color Light-yellow (Yellow) Urine Clarity Clear (Clear) Urine pH 5.5 (5.0-9.0) Urine Specific [place] 1.008 (1.001-1.035) Urine Protein Negative (Negative) Urine Ketones Negative (Negative) Urine Blood Negative /uL (Negative) Urine Nitrite Negative (Negative) Urine Bilirubin Negative (Negative) Urine Urobilinogen Normal mg/dL (Negative) Urine Leukocyte Esterase Negative /uL (Negative) Urine RBC <1 /hpf (0 - 3) Urine WBC 1 /hpf (0 - 3) Urine Squamous Epithelial Cells None seen /hpf (<5) Urine Bacteria None seen /hpf (None Seen) Urine Glucose Normal mg/dL (Normal) Labs and/or images reviewed: Labs reviewed by me, Image(s) reviewed by me Assessment/Plan Assessment/Plan Impression: -rule out GI bleed -rule out gastroenteritis/C diff -recent placement of ICD for ventricular tachycardia -history of ETOH use -peptic ulcer disease -? Anxiety disorder -obesity -primary hypertension Plan: -GI consultation: Pending -continue with clear liquid diet -continue PPI and Carafate -UDS -restart home meds -potassium replacement -gentle IV hydration -stool for occult blood, C diff -start Flagyl 500 mg IV t.i.d. Total time spent with patient discussing and formulating plan of care: 35 minutes. This medical document was created using an electronic medical record system with [employer] system. Although this document has been carefully reviewed, there may still be some phonetic and typographical errors. These areas are purely typographical due to imperfections of the software programs, and do not reflect any compromise in the patient's medical care. Plan discussed with: Patient, Other (RN) My Orders Orders - SUNNI RAHMAN NP Procedure Category Date Status Time Drug Screen LAB 08/02/24 Logged 11:36 Sod Chl 0.45% PHA 08/02/24 In Process (Sodi... W/Potassium 11:45 Allopurinol Tablet PHA 08/02/24 In Process (Zyloprim Tablet) 14:00 Baclofen Tablet PHA 08/03/24 In Process (Liorisal Tablet) 10:00 Furosemide Tablet PHA 08/03/24 In Process (Lasix Tablet) 10:00 Sucralfate Tab PHA 08/02/24 In Process (Carafate Tab) 22:00 (NF) PHA 08/02/24 In Process Hydrochlorothiazide 11:45 Hydroxyzine Oral PHA 08/02/24 In Process (Vistaril Oral) 22:00 Magnesium Oxide PHA 08/03/24 In Process Tablet (Mag-Ox Tablet) 10:00 Clostridium Difficile SIXTO 08/02/24 Uncollected Toxin 11:40 Metronidazole PHA 08/02/24 In Process 500mg/100ml (Flagyl 14:00 Date of Service: Aug 02, 2024 Billing Provider: SUNNI RAHMAN NP Common Visit Codes: [id number] INP/OBS CARE(HIGH) SUNNI RAHMAN NP Aug 02, 2024 12:45
[2024-08-02] MEDS: POTASSIUM CHLORIDE 40 MEQ in SOD CHL 0.45% 1,000 ML IV SCH (13:20)
[2024-08-02] MEDS ORDERED: CARV12.544 PO (14:46)
[2024-08-02] MEDS ORDERED: TRAZ1TAB12 PO (14:46)
[2024-08-02] MEDS ORDERED: SACU1TAB7 PO (14:46)
[2024-08-02] MEDS ORDERED: POTA-180 PO (14:46)
[2024-08-02] MEDS ORDERED: COLC1CAP PO (14:46)
[2024-08-02] MEDS: metroNIDAZOLE 500MG/100ML 100 ML IV SCH (14:51)
[2024-08-02] MEDS: ALLOPURINOL 100 MG TAB PO SCH (15:02)
--- NOTE | 2024-08-02 17:55 | DVHINCON2 ---
Date of service: Aug 02, 2024 History of Present Illness HPI Patient is a 53-year-old gentleman who is known to our practice from outside and before, presented with 8-10 days of abdominal pain/nausea/vomiting accompanied with black stool. He did have some chest discomforts occasionally also. He comes to our practice with old history of heart failure, status post ICD implantation. He had ICD implantation few weeks ago, had abnormal lead which was exchanged recently. Cardiology is involved for cardiac aspects of care. Home Meds Active Scripts Pantoprazole Sodium Sesquihydr (Pantoprazole Sodium) 40 Mg Tab, 40 MG PO BID for 30 Days, #60 TAB Prov:SHANTEL VARGAS RESIDENT 05/03/24 Reported Medications Sacubitril-Valsartan (Entresto 49-51 mg) 1 Tab Tab, 1 TAB PO BID, TAB 08/02/24 Carvedilol (Carvedilol) 12.5 Mg Tab, 12.5 MG PO Q12HR, MG 08/02/24 Trazodone Hcl (Trazodone Hcl) 150 Mg Tab, 150 MG PO HS, MG 08/02/24 Colchicine (Colchicine) 0.6 Mg Cap, 0.6 MG PO BID, CAP 08/02/24 Potassium Chloride (Potassium Chloride ER) 20 Meq Tab, 20 MEQ PO TIDWM, TAB 08/02/24 Magnesium Oxide (MAGNESIUM OXIDE) 400 Mg Tab, 400 MG OR DAILY, TAB 08/02/24 Hydrochlorothiazide W/Triamter (Triamterene/Hydrochloroth) 1 Cap Cap, 1 CAP PO DAILY, CAP 08/02/24 Indomethacin (Indomethacin) 50 Mg Cap, 50 MG PO BID for gout, CAP 08/02/24 Hydroxyzine Hcl (Hydroxyzine Hcl) 25 Mg Tab, 1 TAB PO HS for 30 Days, #30 07/01/24 Baclofen (Baclofen) 10 Mg Tab, 1 TAB PO DAILY for 30 Days, #30 07/01/24 Gabapentin (Gabapentin) 300 Mg Cap, 1 CAP PO BID for 30 Days, #60 07/01/24 Isosorbide Mononitrate (Isosorbide Mononitrate) 10 Mg Tab, 5 MG PO BID, TAB 06/29/24 Sucralfate (Sucralfate) 1 Gm Tab, 1 TAB PO BID 06/28/24 Allopurinol (Allopurinol) 100 Mg Tab, 1 TAB PO TID 06/28/24 Bupropion Hcl (Bupropion Hcl Er) 100 Mg Tab, 1 TAB PO QAM for 30 Days, #30 05/02/24 Clonidine Hydrochloride (Clonidine Hcl) 0.1 Mg Tab, 0.1 MG PO BID for 30 Days, MG 05/01/24 Furosemide (Furosemide) 40 Mg Tab, 1 TAB PO DAILY 04/30/24 Lorazepam (Lorazepam) 1 Mg Tab, 1 TAB PO BID PRN for ANXIETY 04/30/24 Hydralazine HCl (Hydralazine HCl) 25 Mg Tab, 1 TAB PO QID 04/30/24 Amiodarone HCl (Amiodarone HCl) 200 Mg Tab, 1 TAB PO DAILY 04/30/24 Atorvastatin Calcium (ATORVASTATIN CALCIUM) 20 Mg Tab, 1 TAB PO DAILY 04/30/24 Amlodipine Besylate (Amlodipine Besylate) 5 Mg Tab, 5 MG PO DAILY for HTN, MG 04/08/22 Discontinued Reported Medications Potassium Chloride (POTASSIUM CHLORIDE CR) 10 Meq Tb, 20 MEQ PO BID, TAB 05/01/24 Past Medical History Others Past medical history includes morbid obesity, congestive heart failure, diastolic, history of prostate cancer (status post prostatectomy), obstructive sleep apnea (status post its surgery), old history of cocaine abuse, history of frequent PVC (status post multiple ablation), pulmonary hypertension, hyperlipidemia, hypertension, history of sustained ventricular tachycardia (status post ICD implantation, Medtronic), history of ICD lead dislodgement and a lead revision, anxiety disorder, DJD, GERD, gout, gastric ulcer, diverticular disease and hiatal hernia. He has had appendectomy and tonsillectomy before. Patient Family History: Diabetes mellitus G8 BROTHER FH: cancer G8 FATHER Smoker: Quit Lives with: With family Review of Systems Constitutional: Sweats, Weakness Ears, Nose, & Throat: No symptom reported Cardiovascular: Chest Pain Gastrointestinal: Nausea, Vomiting, Abdominal Pain, Diarrhea, Melena All Other Systems 14 point review of system was performed. Relevant findings as per above and as per HPI. Otherwise negative. H&P Exam Vital Signs Vital Signs Date Time Temp Pulse Resp B/P (MAP) Pulse Ox O2 Delivery O2 Flow Rate FiO2 08/02/24 16:59 98.7 110/61 (77) 91 98.7 08/02/24 09:00 59 16 08/02/24 07:30 Room Air* 0 21 General Appeara: Well developed, Obese Head Exam: Normal inspection Eye Exam: bilateral eye PERRL Mouth: Dry mouth Pulmonary/Respiratory: Lungs clear Cardiovascular/Chest: Normal Rhythm, Systolic murmur Neuro/Mental St: Alert, Oriented Appearance: Appropriate appearance Eye contact/ Speech: Cooperative Labs/Xrays Labs Test 08/02/24 08:53 08/02/24 05:39 08/01/24 15:16 08/01/24 09:45 Range/Units White Blood Count 5.9 # 4.4-10.8 10^3/uL Red Blood Count 3.37 L 4.5-5.90 10^6/uL Hemoglobin 10.3 L 13.5-17.5 g/dL Hematocrit 30.2 L 41.0-53.0 % Mean Corpuscular Volume 89.4 80.0-100.0 fL Mean Corpuscular Hemoglobin 30.6 28.0-32.0 pg Mean Corpuscular Hemoglobin Concent 34.2 32.0-36.0 g/dL Red Cell Distribution Width 13.4 11.8-14.3 % Platelet Count 188 140-450 10^3/uL Mean Platelet Volume 7.1 6.9-10.8 fL Neutrophils (%) (Auto) 64.3 37.0-80.0 % Lymphocytes (%) (Auto) 16.3 10.0-50.0 % Monocytes (%) (Auto) 11.8 0.0-12.0 % Eosinophils (%) (Auto) 6.3 0.0-7.0 % Basophils (%) (Auto) 1.3 0.0-2.0 % Neutrophils # (Auto) 3.8 1.6-8.6 10 ^3/uL Lymphocytes # (Auto) 1.0 0.4-5.4 10 ^3/uL Monocytes # (Auto) 0.7 0-1.3 10 ^3/uL Eosinophils # (Auto) 0.4 0-0.8 10 ^3/uL Basophils # (Auto) 0.1 0-0.2 10 ^3/uL Nucleated Red Blood Cells 0.0 % Sodium Level 142 136-145 mmol/L Potassium Level 3.4 L 3.5-5.1 mmol/L Chloride Level 103 98-107 mmol/L Carbon Dioxide Level 30 20-31 mmol/L Anion Gap 9 5-15 Blood Urea Nitrogen 16 9-23 mg/dL Creatinine 1.53 H 0.700-1.30 mg/dL Glomerular Filtration Rate Calc 53 >90 mL/min BUN/Creatinine Ratio 10.5 10.0-20.0 Serum Glucose 84 74-106 mg/dL Calcium Level 9.6 8.7-10.4 mg/dL Total Bilirubin 0.5 0.2-1.0 mg/dL Aspartate Amino Transferase (AST) 144 H 13-40 U/L Alanine Aminotransferase (ALT) 176 H 7-40 U/L Alkaline Phosphatase 68 46-116 U/L Total Protein 5.6 L 5.7-8.2 g/dL Albumin 3.9 3.2-4.8 g/dL Magnesium Level 1.8 1.6-2.6 mg/dL Urine Color Light-yellow Yellow Urine Clarity Clear Clear Urine pH 5.5 5.0-9.0 Urine Specific [place] 1.008 1.001-1.035 Urine Protein Negative Negative Urine Ketones Negative Negative Urine Blood Negative Negative /uL Urine Nitrite Negative Negative Urine Bilirubin Negative Negative Urine Urobilinogen Normal Negative mg/dL Urine Leukocyte Esterase Negative Negative /uL Urine RBC <1 0 - 3 /hpf Urine WBC 1 0 - 3 /hpf Urine Squamous Epithelial Cells None seen <5 /hpf Urine Bacteria None seen None Seen /hpf Urine Glucose Normal Normal mg/dL Test 08/01/24 08:53 Range/Units Prothrombin Time 11.6 9.3-11.8 sec Prothrombin Time INR 1.10 0.9-1.15 Activated Partial Thromboplast Time 26.2 24.5-34.5 SEC Troponin I High Sensitivity 21 </=54 ng/L Assessment/Plan Plan Patient is a 53-year-old gentleman who is known to our practice from outside and before, presented with 8-10 days of abdominal pain/nausea/vomiting accompanied with black stool. He did have some chest discomforts occasionally also. He comes to our practice with old history of heart failure, status post ICD [place]. He had ICD implantation few weeks ago, had abnormal lead which was exchanged recently. Cardiology is involved for cardiac aspects of care. Not in acute distress. Obese patient, lying flat in bed. Dry mucosa. [place] mucosa. No JVD. Not using accessory muscles of breathing. Lungs are clear to auscultation. Cardiac: Regular, no thrill/gallop. Abdomen is soft. No hepatomegaly. Abdominal tenderness not existent. Extremities reveal 1+ edema bilateral. Dorsalis pedis is 2+ bilateral Past medical history includes morbid obesity, congestive heart failure, diastolic, history of prostate cancer (status post prostatectomy), obstructive sleep apnea (status post its surgery), old history of cocaine abuse, history of frequent PVC (status post multiple ablation), pulmonary hypertension, hyperlipidemia, hypertension, history of sustained ventricular tachycardia (status post ICD implantation, Medtronic), history of ICD lead dislodgement and a lead revision, anxiety disorder, DJD, GERD, gout, gastric ulcer, diverticular disease and hiatal hernia. He has had appendectomy and tonsillectomy before. Echocardiogram of June 30, 2024 had reported ejection fraction of 60-65%, no wall motion abnormality, trace MR/TR and right ventricular systolic pressure of 30 mm Hg Left heart catheterization of July 01, 2024 had reported nonobstructive coronary artery disease, EDP of 21 mm Hg WBC: 8.1 - 5.9 Hemoglobin: 10.6 - 10.3 Creatinine: 1.77 - 1.53 Potassium: 2.8 - 3.1 - 3.4 Magnesium: 1.8 Troponin (high sensitive): 21 AST/ALT: 144/176 Chest x-ray revealed: IMPRESSION: No acute cardiopulmonary disease. EKG revealed paced atrial rhythm, poor R-wave progression, no specific ST-T changes ICD interrogation (PlaySight) revealed: Battery: 10.8 years; AAIR/DDDR: 60/120; Pacing impedance: Atrial 456/RV 418 Ohms; Defibrillation impedance: RV 58 Ohms; Ventricle pacing: < 0.1%. Atrial pacin.5%; No episodes; Normal functioning defibrillator Patient is a 53-year-old gentleman who presented with over 1 week of abdominal pain/nausea/diarrhea. He has had black stools. He is found to have abnormal liver function. Kidney functions have been abnormal and in favor of acute kidney injury in a patient with frequent diarrhea. Presentation is not considered cardiac catheterization this point. Of course, patient has had ICD implantation for sustained ventricular tachycardia few weeks ago. Did have some lead dislodgement which was adjusted later. Interrogation of ICD has revealed n ormal functioning ICD. JACINTA Dehydration Diarrhea Black stool? Abnormal LFT Morbid obesity History of sustained ventricular tachycardia Status post ICD (Medtronic) implantation Pulmonary hypertension Diverticular disease GERD Old history of cocaine abuse History of prostate cancer Heart failure, diastolic, history of Cardiac suggestion for management: Manage on telemetry Fluid resuscitation Follow-up electrolytes and kidney function tests and correct abnormalities. Keep potassium above 4 and magnesium above 2 Request for echocardiogram Hepatitis profile Stool for OB and CDT GI consult Lifestyle and risk factor modifications Further evaluation and management depends on the above and clinical course Thank you for consultation A total of 75 minutes was spent reviewing the patient record, examining the patient, making a diagnostic and therapeutic plan, discussing this plan with medical personnel, following up on diagnostic studies and following the patient for clinical stability excluding any and all procedures. At least 50% of this time was spent in direct, [id number] contact. Thank you for allowing me to participate in this patient's care. Further recommendations will depend on patient's clinical course. Please do not hesitate to contact me if you have any questions or concerns. This medical document was created using electronic medical record system with [employer] computerized dictation system. Although this document has been carefully reviewed, there may still be some phonetic and typographical errors. These areas are purely typographical due to the imperfection of the software programs, and do not reflect any compromise in the patient's medical care. Plan discussed with: Patient, Other (Nurse) FRANKIE BORJAS MD Aug 02, 2024 17:55
--- NOTE | 2024-08-02 17:58 | DVHNC2 ---
Procedure - ICD (Medtronic) interrogation: Battery: 10.8 years AAIR/DDDR: 60/120 Pacing impedance: Atrial 456/RV 418 Ohms Defibrillation impedance: RV 58 Ohms Ventricle pacing: < 0.1%. Atrial pacin.5% No episodes Normal functioning defibrillator FRANKIE BORJAS MD Aug 02, 2024 17:58
[2024-08-02 18:08] LABS: Amphetamine Screen, Urine Neg (NEGATIVE); Barbiturate Scree,Urine Neg (NEGATIVE); Benzodiazephine Screen, Urine Neg (NEGATIVE); Cannabinoid Screen, Urine Neg (NEGATIVE); Cocaine Screen, Urine Neg (NEGATIVE); Opiate Scree,Urine Neg (NEGATIVE); Phencyclidine Screen, Urine Neg (NEGATIVE)
[2024-08-02] MEDS: SOD CHL 0.45% 1,000 ML IV SCH (19:17)
[2024-08-02 20:13] LABS: Albumin 3.6 g/dL (3.2-4.8); Bilirubin, Direct 0.2 mg/dL (<0.3); Bilirubin, Total 0.6 mg/dL (0.2-1.0)
[2024-08-02 20:16] LABS: Total Protein 5.3 g/dL (5.7-8.2)
[2024-08-02] MEDS: SUCRALFATE 1 GM TAB PO SCH (22:51)
[2024-08-02] MEDS: hydrOXYzine 25 MG TAB or CAP PO SCH (22:51)
[2024-08-03] VITALS (8 sets, daily range): BP systolic 122–157; BP diastolic 66–101; PULSE 60–98; RESP 18–96; TEMP 97.2–98.5; O2SAT 78–97
[2024-08-03] MEDS: HYDROcodone-ACET 5/325MG TAB PO PRN (02:48)
[2024-08-03] MEDS: ACETAMINOPHEN 325 MG TAB PO PRN (04:58)
[2024-08-03] MEDS: MAGNESIUM OXIDE 400 MG TAB PO SCH (08:32)
[2024-08-03] MEDS: BACLOFEN 10 MG TAB PO SCH (08:32)
[2024-08-03] MEDS: FUROSEMIDE 40 MG TAB PO SCH (08:34)
--- NOTE | 2024-08-03 12:11 | DVHPN2 ---
Subjective The patient seen and examined at bedside. Complain of abdominal pain and diarrhea. Complained that GI specialist did not see the patient however I checked back to the charts and Dr. Davis had see the patient. Reviewed: Care Plan, H&P, Labs, Medications, Previous Orders Changes from previous H/P or p: No Changes General: Per HPI Eyes: No Pain, No Vision change, No Conjunctivae inflammation, No Eyelid inflammation, No Other, No Redness ENT: No Ear pain, No Ear discharge, No Nose pain, No Nose discharge, No Nose congestion, No Mouth pain, No Mouth swelling, No Throat pain, No Throat swelling, No Other Cardiovascular: Chest Pain; No Palpitations, No Orthopnea, No Paroxysmal Noc. Dyspnea, No Edema, No Lt Headedness, No Other Respiratory: No Cough, No Dry, No Shortness of breath, No SOB with excertion, No Wheezing, No Hemoptysis, No Pleuritic Pain, No Sputum, No Other Gastrointestinal: Nausea, Vomiting, Abdominal Pain, Diarrhea; No Constipation, No Melena, No Hematochezia, No Other Genitourinary: No Dysuria, No Frequency, No Incontinence, No Hematuria, No Retention, No Other Musculoskeletal: No other, No neck pain, No shoulder pain, No arm pain, No back pain, No hand pain, No leg pain, No foot pain Skin: No Rash, No Lesions, No Jaundice, No Bruising, No Other Objective Vitals Vital Signs Date Time Temp Pulse Resp B/P (MAP) Pulse Ox O2 Delivery O2 Flow Rate FiO2 08/03/24 08:49 97.7 90 18 157/101 (119) 97 97.7 08/03/24 08:00 Room Air* 0 21 Intake/Output Intake and Output 08/03/24 07:00 Intake Total 1800 ml Balance 1800 ml Intake Oral 550 ml IV Total 1250 ml # Voids 6 # Bowel Movements 2 General Appearance: Alert, Oriented X3, Cooperative, No acute distress HEENT: Atraumatic, PERRLA Lungs: Clear to auscultation, Normal air movement Cardiovascular: Normal S1, Normal S2 Abdomen: Normal bowel sounds, No tenderness Musculoskeletal: Normal sensory function, Normal motor function Extremities: No clubbing, No cyanosis Neuro: Normal gait, Normal speech Psych/Mental Status: Mental status NL, Mood NL Medications Current Medications Medications Dose Ordered Sig/Yesica Route Start Time Stop Time Status Last Admin Dose Admin Acetaminophen/ Hydrocodone Bitart 1 tab Q4HP PRN PO 08/01/24 13:00 08/03/24 08:42 1 TAB Ondansetron HCl 4 mg Q4HP PRN IV 08/01/24 13:00 Docusate Sodium 100 mg BIDPRN PRN PO 08/01/24 13:00 Acetaminophen 650 mg Q6HP PRN PO 08/01/24 13:00 08/03/24 04:58 650 MG Nitroglycerin 0.4 mg Q5MINP PRN SL 08/01/24 13:00 Morphine Sulfate 2 mg Q30M PRN IV 08/01/24 13:00 Pantoprazole Sodium 40 mg BID IV 08/01/24 22:00 08/03/24 08:36 40 MG Amiodarone HCl 200 mg DAILY PO 08/02/24 10:00 08/03/24 08:33 200 MG Amlodipine Besylate 5 mg DAILY PO 08/02/24 10:00 08/03/24 08:33 5 MG Atorvastatin Calcium 20 mg HS PO 08/01/24 22:00 08/02/24 22:51 20 MG Gabapentin 300 mg BID PO 08/01/24 22:00 08/03/24 08:32 300 MG Hydralazine HCl 25 mg BID PO 08/01/24 22:00 08/03/24 08:31 25 MG Lorazepam 1 mg BID PRN PO 08/01/24 14:00 08/03/24 08:42 1 MG Allopurinol 100 mg TID PO 08/02/24 14:00 08/03/24 04:59 100 MG Baclofen 10 mg DAILY PO 08/03/24 10:00 08/03/24 08:32 10 MG Furosemide 40 mg DAILY PO 08/03/24 10:00 08/03/24 08:34 40 MG Sucralfate 1 gm BID PO 08/02/24 22:00 08/03/24 08:32 1 GM Patient Own Medication 1 cap DAILY PO 08/02/24 11:45 Hydroxyzine Pamoate 25 mg HS PO 08/02/24 22:00 08/02/24 22:51 25 MG Magnesium Oxide 400 mg DAILY PO 08/03/24 10:00 08/03/24 08:32 400 MG Metronidazole 100 ml @ 100 mls/hr Q8HR IV 08/02/24 14:00 08/03/24 04:59 100 MLS/HR Sodium Chloride 1,000 ml @ 125 mls/hr Q8H IV 08/02/24 18:30 08/03/24 05:06 125 MLS/HR Laboratory Results Laboratory Tests 08/02/24 05:39 08/02/24 08:53 Chemistry Test 08/02/24 18:46 Albumin 3.6 g/dL (3.2-4.8) Total Protein 5.3 g/dL (5.7-8.2) L LFT Test 08/02/24 18:46 Alanine Aminotransferase (ALT) 182 U/L (7-40) H Alkaline Phosphatase 69 U/L (46-116) Aspartate Amino Transferase (AST) 153 U/L (13-40) H Direct Bilirubin 0.2 mg/dL (<0.3) Total Bilirubin 0.6 mg/dL (0.2-1.0) Urinalysis Test 08/01/24 09:45 Urine Color Light-yellow (Yellow) Urine Clarity Clear (Clear) Urine pH 5.5 (5.0-9.0) Urine Specific [place] 1.008 (1.001-1.035) Urine Protein Negative (Negative) Urine Ketones Negative (Negative) Urine Blood Negative /uL (Negative) Urine Nitrite Negative (Negative) Urine Bilirubin Negative (Negative) Urine Urobilinogen Normal mg/dL (Negative) Urine Leukocyte Esterase Negative /uL (Negative) Urine RBC <1 /hpf (0 - 3) Urine WBC 1 /hpf (0 - 3) Urine Squamous Epithelial Cells None seen /hpf (<5) Urine Bacteria None seen /hpf (None Seen) Urine Glucose Normal mg/dL (Normal) Labs and/or images reviewed: Labs reviewed by me Assessment/Plan Assessment/Plan rule out GI bleed -rule out gastroenteritis/C diff -recent placement of ICD for ventricular tachycardia -history of ETOH use -peptic ulcer disease - Anxiety disorder -obesity -primary hypertension Plan: -GI consultation the patient -continue with clear liquid diet -continue PPI and Carafate -UDS negative for drugs -restart home meds -potassium replacement -gentle IV hydration -stool for occult blood Advised the patient that I will add Ativan p.r.n. for his anxiety but he refused. Explained to the patient that Dr. Davis had see him and plan for EGD tomorrow Continue Flagyl 500 mg IV t.i.d. Plan discussed with: Patient Date of Service: Aug 03, 2024 Billing Provider: TYE MORSE MD Common Visit Codes: [id number] INP/OBS CARE(HIGH) TYE MORSE MD Aug 03, 2024 12:11
--- NOTE | 2024-08-03 12:16 | DVHPN2 ---
Progress Note - Dictate Date Seen: Aug 03, 2024 Medical Necessity Reason Pt with a Central, PICC or Fol: No vital signs Vital Sign Date Time Temp Pulse Resp B/P (MAP) Pulse Ox O2 Delivery O2 Flow Rate FiO2 08/03/24 08:49 97.7 90 18 157/101 (119) 97 97.7 08/03/24 08:00 Room Air* 0 21 Total Intake and Output 08/02/24 08/02/24 08/03/24 15:00 23:00 07:00 Intake Total 600 ml 1200 ml Balance 600 ml 1200 ml medications Current Medications Medications Dose Ordered Sig/Yesica Route Start Time Stop Time Status Last Admin Dose Admin Acetaminophen/ Hydrocodone Bitart 1 tab Q4HP PRN PO 08/01/24 13:00 08/03/24 08:42 1 TAB Ondansetron HCl 4 mg Q4HP PRN IV 08/01/24 13:00 Docusate Sodium 100 mg BIDPRN PRN PO 08/01/24 13:00 Acetaminophen 650 mg Q6HP PRN PO 08/01/24 13:00 08/03/24 04:58 650 MG Nitroglycerin 0.4 mg Q5MINP PRN SL 08/01/24 13:00 Morphine Sulfate 2 mg Q30M PRN IV 08/01/24 13:00 Pantoprazole Sodium 40 mg BID IV 08/01/24 22:00 08/03/24 08:36 40 MG Amiodarone HCl 200 mg DAILY PO 08/02/24 10:00 08/03/24 08:33 200 MG Amlodipine Besylate 5 mg DAILY PO 08/02/24 10:00 08/03/24 08:33 5 MG Atorvastatin Calcium 20 mg HS PO 08/01/24 22:00 08/02/24 22:51 20 MG Gabapentin 300 mg BID PO 08/01/24 22:00 08/03/24 08:32 300 MG Hydralazine HCl 25 mg BID PO 08/01/24 22:00 08/03/24 08:31 25 MG Lorazepam 1 mg BID PRN PO 08/01/24 14:00 08/03/24 08:42 1 MG Allopurinol 100 mg TID PO 08/02/24 14:00 08/03/24 04:59 100 MG Baclofen 10 mg DAILY PO 12/7/24 10:00 08/03/24 08:32 10 MG Furosemide 40 mg DAILY PO 08/03/24 10:00 08/03/24 08:34 40 MG Sucralfate 1 gm BID PO 08/02/24 22:00 08/03/24 08:32 1 GM Patient Own Medication 1 cap DAILY PO 08/02/24 11:45 Hydroxyzine Pamoate 25 mg HS PO 08/02/24 22:00 08/02/24 22:51 25 MG Magnesium Oxide 400 mg DAILY PO 08/03/24 10:00 08/03/24 08:32 400 MG Metronidazole 100 ml @ 100 mls/hr Q8HR IV 08/02/24 14:00 08/03/24 04:59 100 MLS/HR Sodium Chloride 1,000 ml @ 125 mls/hr Q8H IV 08/02/24 18:30 08/03/24 05:06 125 MLS/HR laboratory and microbiology Laboratory Tests 08/02/24 08:53 08/02/24 05:39 Test 08/02/24 05:39 Range/Units Serum Glucose 84 74-106 mg/dL Assessment/Plan Patient is a 53-year-old gentleman who is known to our practice from outside and before, presented with 8-10 days of abdominal pain/nausea/vomiting accompanied with black stool. He did have some chest discomforts occasionally also. He comes to our practice with old history of heart failure, status post ICD implantation. He had ICD implantation few weeks ago, had abnormal lead which was exchanged recently. Cardiology is involved for cardiac aspects of care. Not in acute distress. Obese patient, lying flat in bed. Dry mucosa. [place] mucosa. No JVD. Not using accessory muscles of breathing. Lungs are clear to auscultation. Cardiac: Regular, no thrill/gallop. Abdomen is soft. No hepatomegaly. Abdominal tenderness not existent. Extremities reveal 1+ edema bilateral. Dorsalis pedis is 2+ bilateral Past medical history includes morbid obesity, congestive heart failure, diastolic, history of prostate cancer (status post prostatectomy), obstructive sleep apnea (status post its surgery), old history of cocaine abuse, history of frequent PVC (status post multiple ablation), pulmonary hypertension, hyperlipidemia, hypertension, history of sustained ventricular tachycardia (status post ICD implantation, Medtronic), history of ICD lead dislodgement and a lead revision, anxiety disorder, DJD, GERD, gout, gastric ulcer, diverticular disease and hiatal hernia. He has had appendectomy and tonsillectomy before. Echocardiogram of June 30, 2024 had reported ejection fraction of 60-65%, no wall motion abnormality, trace MR/TR and right ventricular systolic pressure of 30 mm Hg Left heart catheterization of July 01, 2024 had reported nonobstructive coronary artery disease, EDP of 21 mm Hg WBC: 8.1 - 5.9 Hemoglobin: 10.6 - 10.3 Creatinine: 1.77 - 1.53 Potassium: 2.8 - 3.1 - 3.4 Magnesium: 1.8 Troponin (high sensitive): 21 AST/ALT: 144/176 to 153/182 HIV antibody: negative Urine toxicology was non-revealing Chest x-ray revealed: IMPRESSION: No acute cardiopulmonary disease. EKG revealed paced atrial rhythm, poor R-wave progression, no specific ST-T changes ICD interrogation ([employer]) revealed: Battery: 10.8 years; AAIR/DDDR: 60/120; Pacing impedance: Atrial 456/RV 418 Ohms; Defibrillation impedance: RV 58 Ohms; Ventricle pacing: < 0.1%. Atrial pacin.5%; No episodes; Normal functioning defibrillator Echocardiogram reported: Left ventricle: Mild concentric left ventricular hypertrophy was seen. LVEF was around 55%. There was no gross wall motion abnormality. Abnormal relaxation of left ventricle diastolic function was observed. Right ventricle was normal-sized with normal systolic function. Left atrium was mildly dilated. Right atrium was normal-sized. Pacing wire was seen in the right-sided chambers. Aortic valve: Aortic valve was trileaflet. There was no aortic insufficiency/stenosis. There was no mitral regurgitation. There was trace tricuspid regurgitation. There was trace pulmonary valve insufficiency. Right ventricular systolic pressure was assessed around 29 mm Hg. There was no pericardial effusion. Patient is a 53-year-old gentleman who presented with over 1 week of abdominal pain/nausea/diarrhea. He has had black stools. He is found to have abnormal liver function. Kidney functions have been abnormal and in favor of acute kidney injury in a patient with frequent diarrhea. Presentation is not considered cardiac catheterization this point. Of course, patient has had ICD implantation for sustained ventricular tachycardia few weeks ago. Did have some lead dislodgement which was adjusted later. Interrogation of ICD has revealed normal functioning ICD. JACINTA Dehydration Diarrhea Black stool? Abnormal LFT Morbid obesity History of sustained ventricular tachycardia Status post ICD ([employer]) implantation Pulmonary hypertension Diverticular disease GERD Old history of cocaine abuse History of prostate cancer Heart failure, diastolic, history of Cardiac suggestion for management: Manage on telemetry Fluid resuscitation Follow-up electrolytes and kidney function tests and correct abnormalities. Keep potassium above 4 and magnesium above 2 Hepatitis profile Stool for OB and CDT Stool for wbc and ova/parasite Abdominal sonogram is suggested. GI consult Lifestyle and risk factor modifications Further evaluation and management depends on the above and clinical course A total of 55 minutes was spent reviewing the patient record, examining the patient, making a diagnostic and therapeutic plan, discussing this plan with medical personnel, following up on diagnostic studies and following the patient for clinical stability excluding any and all procedures. At least 50% of this time was spent in direct, [id number] contact. Thank you for allowing me to participate in this patient's care. Further recommendations will depend on patient's clinical course. Please do not hesitate to contact me if you have any questions or concerns. This medical document was created using electronic medical record system with [employer] computerized dictation system. Although this document has been carefully reviewed, there may still be some phonetic and typographical errors. These areas are purely typographical due to the imperfection of the software programs, and do not reflect any compromise in the patient's medical care. Plan discussed with: Patient, Other (nurse) FRANKIE BORJAS MD Aug 03, 2024 12:16
--- NOTE | 2024-08-03 12:22 | DVHSR ---
APPROVED REPORT EXAM: LIMITED Two-dimensional and M-mode echocardiogram with Doppler and color Doppler. Blood Pressure: 131/92 mmHg INDICATION Palpitations RISK FACTORS Obesity: Height: 5'11, Weight: 234 DIMENSIONS LVDd4.9 (3.8-5.7cm)LA (2D) (1.9-4.0cm)Aortic Root4.1 (2.0-3.7cm) LVDs3.7 (2.5-4.0cm)LA (MM) (1.9-4.0cm)Aortic Cusp Exc1.6 (1.5-2.0cm) EF (%) 55.0 (55-70%)Rt. Atrium (1.9-4.0cm)Asc. Aorta3.7 cm IVSd1.4 (0.7-1.1cm)RV (D) (1.8-2.4cm) PWd1.2 (0.7-1.1cm) Mitral Valve MitralMitral Stenosis E wave0.33m/sMV Mean GR.mmHg A wave0.74m/sMV Peak GR.mmHg E/A ratio0.42D MVAcm2 DECEL [id number] 1/2 Timems Aortic Valve Aortic ValveAortic Stenosis V10.79m/Mert Mean GR.4mmHg V21.23m/Mert Peak GR.6mmHg LVOT Diameter2.5 (1.8-2.4cm)Doppler AVA3.15cm2 Pulmonic Valve V20.93m/s Tricuspid Valve TR Velocity2.00m/s [id number] Other Information Quality : ExcellentLimitedRhythm : Technically limited study due to body habitus.patient position. Conclusion Left ventricle: Mild concentric left ventricular hypertrophy was seen. LVEF was around 55%. There was no gross wall motion abnormality. Abnormal relaxation of left ventricle diastolic function was o bserved. Right ventricle was normal-sized with normal systolic function. Left atrium was mildly dilated. Rig ht atrium was normal-sized. Pacing wire was seen in the right-sided chambers. Aortic valve: Aortic valve was trileaflet. There was no aortic insufficiency/stenosis. There was no mitral regurgitation. There was trace tricuspid regurgitation. There was trace pulmonary valve ins ufficiency. Right ventricular systolic pressure was assessed around 29 mm Hg. There was no pericardial effusion.
--- NOTE | 2024-08-03 15:29 | DVH ---
EXAM: US ABDOMEN COMPLETE SONOGRAM HISTORY: ABNORMAL LFT, ABD PAIN COMPARISON: None TECHNIQUE: Real-time grayscale and color flow images of the abdomen were obtained. FINDINGS: LIVER: Liver measures 14.5 cm craniocaudal. Liver parenchyma is diffusely coarse in echotexture. No f ocal lesion is identified. No intrahepatic ductal dilatation. Normal directional flow is seen i n the portal vein. GALLBLADDER: Moderately distended gallbladder. No gallstones. No gallbladder wall edema or pericholec ystic fluid. Sonographic Cesar's sign is negative. COMMON BILE DUCT: 0.8 cm in caliber, within normal limits. SPLEEN: 12.7 cm in length. No focal lesion is identified. PANCREAS: Visualized portions are unremarkable. KIDNEYS: The right kidney measures 11 cm in length. The left kidney measures 11 cm in length. No h ydronephrosis noted bilaterally. No focal renal lesions. No sonographic evidence of calculi. AORTA, IVC: Visualized portions are unremarkable. OTHER: None. IMPRESSION: 1. No sonographic evidence for an acute intra-abdominal process. 2. Coarse hepatic echotexture and slightly irregular liver contour concerning for cirrhosis. Recommen d clinical correlation. 3. Mild splenomegaly. The portal vein is patent. No ascites. 4. Moderately distended gallbladder without gallbladder wall edema or evidence of cholecystitis. No c holelithiasis.
--- NOTE | 2024-08-03 22:00 | DVHINCON2 ---
Date of service: Aug 03, [address] Mcintyre Reason for Consultation Abdominal pain melanotic stools and weakness History of Present Illness This 52-year-old obese male presented to the emergency room with complaints of weakness and tiredness and abdominal pain and black stools. Patient is not able to keep anything down also and was getting weak and dehydrated Patient has history of gastric ulcer in the past Past Medical History Hypertension hyperlipidemia congestive heart failure Past Surgical History Appendectomy tonsillectomy pacemaker Family History: Diabetes mellitus G8 BROTHER FH: cancer G8 FATHER Family History Noncontributory Social History Denies smoking or drinking Allergies: Coded Allergies: No Known Drug Allergy (Verified Allergy, Unknown, 04/08/22) Home Meds Active Scripts Pantoprazole Sodium Sesquihydr (Pantoprazole Sodium) 40 Mg Tab, 40 MG PO BID for 30 Days, #60 TAB Prov:SHANTEL VARGAS RESIDENT 05/03/24 Reported Medications Sacubitril-Valsartan (Entresto 49-51 mg) 1 Tab Tab, 1 TAB PO BID, TAB 08/02/24 Carvedilol (Carvedilol) 12.5 Mg Tab, 12.5 MG PO Q12HR, MG 08/02/24 Trazodone Hcl (Trazodone Hcl) 150 Mg Tab, 150 MG PO HS, MG 08/02/24 Colchicine (Colchicine) 0.6 Mg Cap, 0.6 MG PO BID, CAP 08/02/24 Potassium Chloride (Potassium Chloride ER) 20 Meq Tab, 20 MEQ PO TIDWM, TAB 08/02/24 Magnesium Oxide (MAGNESIUM OXIDE) 400 Mg Tab, 400 MG OR DAILY, TAB 08/02/24 Hydrochlorothiazide W/Triamter (Triamterene/Hydrochloroth) 1 Cap Cap, 1 CAP PO DAILY, CAP 08/02/24 Indomethacin (Indomethacin) 50 Mg Cap, 50 MG PO BID for gout, CAP 08/02/24 Hydroxyzine Hcl (Hydroxyzine Hcl) 25 Mg Tab, 1 TAB PO HS for 30 Days, #30 07/01/24 Baclofen (Baclofen) 10 Mg Tab, 1 TAB PO DAILY for 30 Days, #30 07/01/24 Gabapentin (Gabapentin) 300 Mg Cap, 1 CAP PO BID for 30 Days, #60 07/01/24 Isosorbide Mononitrate (Isosorbide Mononitrate) 10 Mg Tab, 5 MG PO BID, TAB 06/29/24 Sucralfate (Sucralfate) 1 Gm Tab, 1 TAB PO BID 06/28/24 Allopurinol (Allopurinol) 100 Mg Tab, 1 TAB PO TID 06/28/24 Bupropion Hcl (Bupropion Hcl Er) 100 Mg Tab, 1 TAB PO QAM for 30 Days, #30 05/02/24 Clonidine Hydrochloride (Clonidine Hcl) 0.1 Mg Tab, 0.1 MG PO BID for 30 Days, MG 05/01/24 Furosemide (Furosemide) 40 Mg Tab, 1 TAB PO DAILY 04/30/24 Lorazepam (Lorazepam) 1 Mg Tab, 1 TAB PO BID PRN for ANXIETY 04/30/24 Hydralazine HCl (Hydralazine HCl) 25 Mg Tab, 1 TAB PO QID 04/30/24 Amiodarone HCl (Amiodarone HCl) 200 Mg Tab, 1 TAB PO DAILY 04/30/24 Atorvastatin Calcium (ATORVASTATIN CALCIUM) 20 Mg Tab, 1 TAB PO DAILY 04/30/24 Amlodipine Besylate (Amlodipine Besylate) 5 Mg Tab, 5 MG PO DAILY for HTN, MG 04/08/22 Discontinued Reported Medications Potassium Chloride (POTASSIUM CHLORIDE CR) 10 Meq Tb, 20 MEQ PO BID, TAB 05/01/24 Current Medications Current Medications Medications (Trade) Dose Ordered Sig/Yesica Route PRN Reason Start Time Stop Time Status Last Admin Baclofen (Liorisal Tablet) 10 mg DAILY PO 08/03/24 10:00 08/03/24 08:32 Furosemide (Lasix Tablet) 40 mg DAILY PO 08/03/24 10:00 08/03/24 08:34 Sucralfate (Carafate Tab) 1 gm BID PO 08/02/24 22:00 08/03/24 20:52 Hydroxyzine Pamoate (Vistaril Oral) 25 mg HS PO 08/02/24 22:00 08/03/24 20:52 Magnesium Oxide (Mag-Ox Tablet) 400 mg DAILY PO 08/03/24 10:00 08/03/24 08:32 Review of Systems Noncontributory Vital Signs Vital Signs Date Time Temp Pulse Resp B/P (MAP) Pulse Ox O2 Delivery O2 Flow Rate FiO2 08/03/24 21:07 132/96 08/03/24 17:00 98.3 70 96 96 98.3 08/03/24 08:00 Room Air* 0 21 Physical Exam Moderately built slightly on the obese side male in no acute distress Chronically ill-looking HEENT examination no pallor no icterus Neck is supple no lymphadenopathy no thyromegaly Lungs clear Cardiovascular unremarkable Abdomen soft mild epigastric tenderness no rigidity no guarding no masses Extremities no edema Labs/Diagnostic Data Labs Test 08/02/24 18:46 08/02/24 17:30 08/02/24 08:53 08/02/24 05:39 Range/Units Total Bilirubin 0.6 0.2-1.0 mg/dL Direct Bilirubin 0.2 <0.3 mg/dL Aspartate Amino Transferase (AST) 153 H 13-40 U/L Alanine Aminotransferase (ALT) 182 H 7-40 U/L Alkaline Phosphatase 69 46-116 U/L Total Protein 5.3 L 5.7-8.2 g/dL Albumin 3.6 3.2-4.8 g/dL HIV (1&2) Antibody Negative Negative Urine Opiates Screen Neg NEGATIVE Urine Fentanyl Screen Neg NEGATIVE Urine Barbiturates Screen Neg NEGATIVE Urine Phencyclidine Screen Neg NEGATIVE Urine Amphetamines Screen Neg NEGATIVE Urine Benzodiazepines Screen Neg NEGATIVE Urine Cocaine Screen Neg NEGATIVE Urine Cannabinoids Screen Neg NEGATIVE White Blood Count 5.9 # 4.4-10.8 10^3/uL Red Blood Count 3.37 L 4.5-5.90 10^6/uL Hemoglobin 10.3 L 13.5-17.5 g/dL Hematocrit 30.2 L 41.0-53.0 % Mean Corpuscular Volume 89.4 80.0-100.0 fL Mean Corpuscular Hemoglobin 30.6 28.0-32.0 pg Mean Corpuscular Hemoglobin Concent 34.2 32.0-36.0 g/dL Red Cell Distribution Width 13.4 11.8-14.3 % Platelet Count 188 140-450 10^3/uL Mean Platelet Volume 7.1 6.9-10.8 fL Neutrophils (%) (Auto) 64.3 37.0-80.0 % Lymphocytes (%) (Auto) 16.3 10.0-50.0 % Monocytes (%) (Auto) 11.8 0.0-12.0 % Eosinophils (%) (Auto) 6.3 0.0-7.0 % Basophils (%) (Auto) 1.3 0.0-2.0 % Neutrophils # (Auto) 3.8 1.6-8.6 10 ^3/uL Lymphocytes # (Auto) 1.0 0.4-5.4 10 ^3/uL Monocytes # (Auto) 0.7 0-1.3 10 ^3/uL Eosinophils # (Auto) 0.4 0-0.8 10 ^3/uL Basophils # (Auto) 0.1 0-0.2 10 ^3/uL Nucleated Red Blood Cells 0.0 % Sodium Level 142 136-145 mmol/L Potassium Level 3.4 L 3.5-5.1 mmol/L Chloride Level 103 98-107 mmol/L Carbon Dioxide Level 30 20-31 mmol/L Anion Gap 9 5-15 Blood Urea Nitrogen 16 9-23 mg/dL Creatinine 1.53 H 0.700-1.30 mg/dL Glomerular Filtration Rate Calc 53 >90 mL/min BUN/Creatinine Ratio 10.5 10.0-20.0 Serum Glucose 84 74-106 mg/dL Calcium Level 9.6 8.7-10.4 mg/dL Test 08/01/24 15:16 08/01/24 09:45 08/01/24 08:53 Range/Units Magnesium Level 1.8 1.6-2.6 mg/dL Urine Color Light-yellow Yellow Urine Clarity Clear Clear Urine pH 5.5 5.0-9.0 Urine Specific [place] 1.008 1.001-1.035 Urine Protein Negative Negative Urine Ketones Negative Negative Urine Blood Negative Negative /uL Urine Nitrite Negative Negative Urine Bilirubin Negative Negative Urine Urobilinogen Normal Negative mg/dL Urine Leukocyte Esterase Negative Negative /uL Urine RBC <1 0 - 3 /hpf Urine WBC 1 0 - 3 /hpf Urine Squamous Epithelial Cells None seen <5 /hpf Urine Bacteria None seen None Seen /hpf Urine Glucose Normal Normal mg/dL Prothrombin Time 11.6 9.3-11.8 sec Prothrombin Time INR 1.10 0.9-1.15 Activated Partial Thromboplast Time 26.2 24.5-34.5 SEC Troponin I High Sensitivity 21 </=54 ng/L Assessment This 52-year-old male presented with complaints of abdominal pain black stools and weakness and tiredness has been having nausea vomiting for the last 8-10 days prior to admission. Has complaints of abdominal pains in the epigastrium and weakness and tiredness unable to keep any food down Gastric ulcers in the past History of arthritis Impression possible ulcer with GI bleeding Plan/Recommendation will follow the hemoglobin and if symptoms persist we will recommend EGD evaluation Thank you Dr. Davis Plan discussed with: Patient RICK DAVIS MD Aug 03, 2024 22:00
[2024-08-04] VITALS (9 sets, daily range): BP systolic 136–172; BP diastolic 86–103; PULSE 67–92; RESP 12–18; TEMP 97.5–98.3; O2SAT 92–96
--- NOTE | 2024-08-04 07:40 | DVHPN2 ---
Progress Note - Dictate Date Seen: Aug 04, 2024 Medical Necessity Reason Pt with a Central, PICC or Fol: No vital signs Vital Sign Date Time Temp Pulse Resp B/P (MAP) Pulse Ox O2 Delivery O2 Flow Rate FiO2 08/04/24 05:00 97.9 92 18 140/95 (110) 96 97.9 08/03/24 20:00 Room Air* 0 21 Total Intake and Output 08/03/24 08/03/24 08/04/24 15:00 23:00 07:00 Intake Total 1500 ml 1000 ml Output Total 600 ml Balance 1500 ml 400 ml medications Current Medications Medications Dose Ordered Sig/Yesica Route Start Time Stop Time Status Last Admin Dose Admin Acetaminophen/ Hydrocodone Bitart 1 tab Q4HP PRN PO 08/01/24 13:00 08/04/24 04:30 1 TAB Ondansetron HCl 4 mg Q4HP PRN IV 08/01/24 13:00 Docusate Sodium 100 mg BIDPRN PRN PO 08/01/24 13:00 Acetaminophen 650 mg Q6HP PRN PO 08/01/24 13:00 08/03/24 04:58 650 MG Nitroglycerin 0.4 mg Q5MINP PRN SL 08/01/24 13:00 Morphine Sulfate 2 mg Q30M PRN IV 08/01/24 13:00 Pantoprazole Sodium 40 mg BID IV 08/01/24 22:00 08/03/24 20:52 40 MG Amiodarone HCl 200 mg DAILY PO 08/02/24 10:00 08/03/24 08:33 200 MG Amlodipine Besylate 5 mg DAILY PO 08/02/24 10:00 08/03/24 08:33 5 MG Atorvastatin Calcium 20 mg HS PO 08/01/24 22:00 08/03/24 20:52 20 MG Gabapentin 300 mg BID PO 08/01/24 22:00 08/03/24 20:52 300 MG Hydralazine HCl 25 mg BID PO 08/01/24 22:00 08/03/24 21:07 25 MG Lorazepam 1 mg BID PRN PO 08/01/24 14:00 08/03/24 21:00 1 MG Allopurinol 100 mg TID PO 08/02/24 14:00 08/03/24 20:52 100 MG Baclofen 10 mg DAILY PO 08/03/24 10:00 08/03/24 08:32 10 MG Furosemide 40 mg DAILY PO 08/03/24 10:00 08/03/24 08:34 40 MG Sucralfate 1 gm BID PO 08/02/24 22:00 08/03/24 20:52 1 GM Patient Own Medication 1 cap DAILY PO 08/02/24 11:45 Hydroxyzine Pamoate 25 mg HS PO 08/02/24 22:00 08/03/24 20:52 25 MG Magnesium Oxide 400 mg DAILY PO 08/03/24 10:00 08/03/24 08:32 400 MG Metronidazole 100 ml @ 100 mls/hr Q8HR IV 08/02/24 14:00 08/04/24 05:18 100 MLS/HR Sodium Chloride 1,000 ml @ 125 mls/hr Q8H IV 08/02/24 18:30 08/03/24 05:06 125 MLS/HR laboratory and microbiology Laboratory Tests 08/02/24 08:53 08/02/24 05:39 Test 08/02/24 05:39 Range/Units Serum Glucose 84 74-106 mg/dL Assessment/Plan Patient is a 53-year-old gentleman who is known to our practice from outside and before, presented with 8-10 days of abdominal pain/nausea/vomiting accompanied with black stool. He did have some chest discomforts occasionally also. He comes to our practice with old history of heart failure, status post ICD implantation. He had ICD implantation few weeks ago, had abnormal lead which was exchanged recently. Cardiology is involved for cardiac aspects of care. Not in acute distress. Obese patient, lying flat in bed. Dry mucosa. [place] mucosa. No JVD. Not using accessory muscles of breathing. Lungs are clear to auscultation. Cardiac: Regular, no thrill/gallop. Abdomen is soft. No hepatomegaly. Abdominal tenderness not existent. Extremities reveal 1+ edema bilateral. Dorsalis pedis is 2+ bilateral Past medical history includes morbid obesity, congestive heart failure, diastolic, history of prostate cancer (status post prostatectomy), obstructive sleep apnea (status post its surgery), old history of cocaine abuse, history of frequent PVC (status post multiple ablation), pulmonary hypertension, hyperlipidemia, hypertension, history of sustained ventricular tachycardia (status post ICD implantation, Medtronic), history of ICD lead dislodgement and a lead revision, anxiety disorder, DJD, GERD, gout, gastric ulcer, diverticular disease and hiatal hernia. He has had appendectomy and tonsillectomy before. Echocardiogram of June 30, 2024 had reported ejection fraction of 60-65%, no wall motion abnormality, trace MR/TR and right ventricular systolic pressure of 30 mm Hg Left heart catheterization of July 01, 2024 had reported nonobstructive coronary artery disease, EDP of 21 mm Hg WBC: 8.1 - 5.9 - 5.9 Hemoglobin: 10.6 - 10.3 - 10.9 Creatinine: 1.77 - 1.53 today's pending Potassium: 2.8 - 3.1 - 3.4 today's pending Magnesium: 1.8 Troponin (high sensitive): 21 AST/ALT: 144/176 to 153/182 today's pending Stool for OB: negative HIV antibody: negative Urine toxicology was non-revealing Chest x-ray revealed: IMPRESSION: No acute cardiopulmonary disease. Abdominal ultrasound revealed: IMPRESSION: 1. No sonographic evidence for an acute intra-abdominal process. 2. Coarse hepatic echotexture and slightly irregular liver contour concerning for cirrhosis. Recommend clinical correlation. 3. Mild splenomegaly. The portal vein is patent. No ascites. 4. Moderately distended gallbladder without gallbladder wall edema or evidence of cholecystitis. No cholelithiasis. EKG revealed paced atrial rhythm, poor R-wave progression, no specific ST-T changes ICD interrogation ([employer]) revealed: Battery: 10.8 years; AAIR/DDDR: 60/120; Pacing impedance: Atrial 456/RV 418 Ohms; Defibrillation impedance: RV 58 Ohms; Ventricle pacing: < 0.1%. Atrial pacin.5%; No episodes; Normal functioning defibrillator Echocardiogram reported: Left ventricle: Mild concentric left ventricular hypertrophy was seen. LVEF was around 55%. There was no gross wall motion abnormality. Abnormal relaxation of left ventricle diastolic function was observed. Right ventricle was normal-sized with normal systolic function. Left atrium was mildly dilated. Right atrium was normal-sized. Pacing wire was seen in the right-sided chambers. Aortic valve: Aortic valve was trileaflet. There was no aortic insufficiency/stenosis. There was no mitral regurgitation. There was trace tricuspid regurgitation. There was trace pulmonary valve insufficiency. Right ventricular systolic pressure was assessed around 29 mm Hg. There was no pericardial effusion. Patient is a 53-year-old gentleman who presented with over 1 week of abdominal pain/nausea/diarrhea. He has had black stools. He is found to have abnormal liver function. Kidney functions have been abnormal and in favor of acute kidney injury in a patient with frequent diarrhea. Presentation is not considered cardiac catheterization this point. Of course, patient has had ICD implantation for sustained ventricular tachycardia few weeks ago. Did have some lead dislodgement which was adjusted later. Interrogation of ICD has revealed normal functioning ICD. Abdominal ultrasound questions liver cirrhosis? Seen by GI JACINTA Dehydration Diarrhea Black stool? Abnormal LFT Morbid obesity History of sustained ventricular tachycardia Status post ICD (Medtronic) implantation Pulmonary hypertension Diverticular disease GERD Old history of cocaine abuse History of prostate cancer Heart failure, diastolic, history of Cardiac suggestion for management: Manage on telemetry Fluid resuscitation Follow-up electrolytes and kidney function tests and correct abnormalities. Keep potassium above 4 and magnesium above 2 Hepatitis profile / EDUAR Stool for CDT Stool for wbc and ova/parasite GI follow up for possible liver cirrhosis? CT of abdomen for better evaluation of liver Cardiac kellogg, patient is moderate risk patient for low risk Endoscopy (EGD). Cardiac kellogg, you can proceed with EGD under appropriate intra and post operative hemodynamic monitoring. Lifestyle and risk factor modifications Further evaluation and management depends on the above and clinical course A total of 55 minutes was spent reviewing the patient record, examining the patient, making a diagnostic and therapeutic plan, discussing this plan with medical personnel, following up on diagnostic studies and following the patient for clinical stability excluding any and all procedures. At least 50% of this time was spent in direct, [id number] contact. Thank you for allowing me to participate in this patient's care. Further recommendations will depend on patient's clinical course. Please do not hesitate to contact me if you have any questions or concerns. This medical document was created using electronic medical record system with [employer] computerized dictation system. Although this document has been carefully reviewed, there may still be some phonetic and typographical errors. These areas are purely typographical due to the imperfection of the software programs, and do not reflect any compromise in the patient's medical care. Plan discussed with: Patient, Other (nurse) FRANKIE BORJAS MD Aug 04, 2024 07:40
[2024-08-04 08:19] LABS: Basophils # (auto) 0.1 10 ^3/uL (0-0.2); Basophils % (auto) 1.2 % (0.0-2.0); Eosinophils # (auto) 0.3 10 ^3/uL (0-0.8); Eosinophils % (auto) 5.5 % (0.0-7.0); Hematocrit 32.4 % (41.0-53.0); Hemoglobin 10.9 g/dL (13.5-17.5); Lymphocytes # (auto) 0.8 10 ^3/uL (0.4-5.4); Mean Corpuscular Hemoglobin 30.3 pg (28.0-32.0); Mean Corpuscular Hgb Conc. 33.6 g/dL (32.0-36.0); Mean Corpuscular Volume 89.9 fL (80.0-100.0); Monocytes # (auto) 0.7 10 ^3/uL (0-1.3); Monocytes % (auto) 11.9 % (0.0-12.0); Neutrophils % (auto) 68.4 % (37.0-80.0); Nucleated Red Blood Cells % 0.1 %; Platelet Count (auto) 222 10^3/uL (140-450); Red Blood Cells 3.61 10^6/uL (4.5-5.90); Red Cell Distribution Width 14.2 % (11.8-14.3); White Blood Cell 5.9 10^3/uL (4.4-10.8)
[2024-08-04 08:34] LABS: Alkaline Phosphatase 67 U/L (46-116); Anion Gap 9 (5-15); BUN/Creatinine Ratio 6.6 (10.0-20.0); Bilirubin, Total 0.7 mg/dL (0.2-1.0); Blood Urea Nitrogen 9 mg/dL (9-23); Calcium 9.8 mg/dL (8.7-10.4); Carbon Dioxide 31 mmol/L (20-31); Chloride 103 mmol/L (98-107); Glucose 99 mg/dL (74-106); Sodium 143 mmol/L (136-145); Total Protein 5.9 g/dL (5.7-8.2)
[2024-08-04 08:37] LABS: Alanine Aminotransferase 171 U/L (7-40); Aspartate Aminotransferase 186 U/L (13-40); Potassium 3.1 mmol/L (3.5-5.1)
[2024-08-04] MEDS ORDERED: FLUMAZENIL 0.1 MG/ML INJ 10ML MDV IV ONE (08:57)
[2024-08-04] MEDS ORDERED: NALOXONE HCL 0.4 MG/ML VIAL ONE (08:57)
[2024-08-04] MEDS ORDERED: SODIUM CHLORIDE LOCK 10 ML ONE (08:57)
[2024-08-04] MEDS ORDERED: SIMETHICONE 40 MG/0.6 ML ORAL DROP ONE (09:02)
[2024-08-04] MEDS: LIDOCAINE VISCOUS 2% 15ML UD ONE (09:19)
[2024-08-04] MEDS: diphenhdrAMINE HCL 50 MG/1 ML VL ONE (09:20)
[2024-08-04] MEDS: MIDAZOLAM HCL 5 MG/ML-1ML VIAL ONE (09:20)
[2024-08-04] MEDS: fentaNYL CITRATE 100 MCG/2 ML VL ONE (09:20)
--- NOTE | 2024-08-04 09:48 | DVHOP2 ---
Operative Report DATE OF PROCEDURE: 08/04/24 INDICATIONS FOR THE PROCEDURE: GI bleeding abdominal pain history of ulcer the -pyloric area status post dilatation about three months ago by Dr. Turner PROCEDURE PERFORMED: 1. Esophagogastroduodenoscopy and biopsy POSTOPERATIVE DIAGNOSIS: Mild gastritis in the antrum pre-pyloric area no ulcers seen no bleeding seen Mild deformity of the pylorus but pyrosis open without any stenosis at this time INFORMED CONSENT: The risks and benefits and alternatives were explained to the patient and informed consent was obtained. PROCEDURE IN DETAIL: The patient was kept NPO after midnight. In the endoscopy room, he was given IV fentanyl 100 mcg and Versed, 4 mg titrated slowly to get him sedated. Olympus gastroscope was passed through the oropharynx into the stomach and the duodenum, and the findings were as follows. Esophagus: 1 cm hiatal hernia No esophagitis No esophageal varices no strictures Stomach: Fundus: Normal Body and antrum Mild erythema in the antrum pre-pyloric only without any bleeding no ulcers no erosions Biopsies taken to ensure there is no H pylori or other pathology Pylorus slightly deformed no ulcers no active bleeding seen the scope could be easily passed through into the duodenum through the pylorus Duodenum normal no ulcers no bleeding Endoscopic impression Hiatal hernia without esophagitis Mild antral gastritis Mild pyloric deformity without any streaked stenosis or ulcers or other pathology Suggestions Treat symptomatically with PPIs or Pepcid p.r.n. Follow hemoglobin closely Follow the liver enzymes and follow for the liver in a liver Clinic as an outpatient We will recommend follow-up in [facility] some other centers for the liver problem Thank you for asking me to take part in the care of this pleasant patient With warm regards, RICK Jimenez MD Aug 04, 2024 09:48
--- NOTE | 2024-08-04 10:38 | DVHPN2 ---
Progress Note - Dictate Medical Necessity Reason Pt with a Central, PICC or Fol: No Subjective Patient had complaints of abdominal pain and history of pyloric channel ulcer with pyloric stenosis which was dilated by Dr. Turner Was still complaints of abdominal discomfort Patient also has got abnormal liver enzymes AST ALT Patient had a CT scan in April which was revealed was liver was normal apparently was done without IV or oral contrast Was found at this admission shows fatty liver and possible fibrosis and cirrhosis Liver enzymes were slightly increased vital signs Vital Sign Date Time Temp Pulse Resp B/P (MAP) Pulse Ox O2 Delivery O2 Flow Rate FiO2 08/04/24 09:53 70 12 144/90 (108) 96 08/04/24 09:43 Room Air 08/04/24 05:00 97.9 97.9 08/03/24 20:00 0 21 Total Intake and Output 08/03/24 08/03/24 08/04/24 15:00 23:00 07:00 Intake Total 1500 ml 1000 ml Output Total 600 ml Balance 1500 ml 400 ml medications Current Medications Medications Dose Ordered Sig/Yesica Route Start Time Stop Time Status Last Admin Dose Admin Acetaminophen/ Hydrocodone Bitart 1 tab Q4HP PRN PO 08/01/24 13:00 08/04/24 04:30 1 TAB Ondansetron HCl 4 mg Q4HP PRN IV 08/01/24 13:00 Docusate Sodium 100 mg BIDPRN PRN PO 08/01/24 13:00 Acetaminophen 650 mg Q6HP PRN PO 08/01/24 13:00 08/03/24 04:58 650 MG Nitroglycerin 0.4 mg Q5MINP PRN SL 08/01/24 13:00 Morphine Sulfate 2 mg Q30M PRN IV 08/01/24 13:00 Pantoprazole Sodium 40 mg BID IV 08/01/24 22:00 08/03/24 20:52 40 MG Amiodarone HCl 200 mg DAILY PO 08/02/24 10:00 08/03/24 08:33 200 MG Amlodipine Besylate 5 mg DAILY PO 08/02/24 10:00 08/03/24 08:33 5 MG Atorvastatin Calcium 20 mg HS PO 08/01/24 22:00 08/03/24 20:52 20 MG Gabapentin 300 mg BID PO 08/01/24 22:00 08/03/24 20:52 300 MG Hydralazine HCl 25 mg BID PO 08/01/24 22:00 08/03/24 21:07 25 MG Lorazepam 1 mg BID PRN PO 08/01/24 14:00 08/03/24 21:00 1 MG Allopurinol 100 mg TID PO 08/02/24 14:00 08/03/24 20:52 100 MG Baclofen 10 mg DAILY PO 08/03/24 10:00 08/03/24 08:32 10 MG Furosemide 40 mg DAILY PO 08/03/24 10:00 08/03/24 08:34 40 MG Sucralfate 1 gm BID PO 08/02/24 22:00 08/03/24 20:52 1 GM Patient Own Medication 1 cap DAILY PO 08/02/24 11:45 Hydroxyzine Pamoate 25 mg HS PO 08/02/24 22:00 08/03/24 20:52 25 MG Magnesium Oxide 400 mg DAILY PO 08/03/24 10:00 08/03/24 08:32 400 MG Metronidazole 100 ml @ 100 mls/hr Q8HR IV 08/02/24 14:00 08/04/24 05:18 100 MLS/HR Sodium Chloride 1,000 ml @ 125 mls/hr Q8H IV 08/02/24 18:30 08/03/24 05:06 125 MLS/HR objective Abdominal fullness slightly no rigidity no guarding no masses bowel sounds normal Slightly obese Ultrasound possible fatty liver with cirrhosis EGD no ulcers seen minimal gastritis now but no other problems no pyloric obstruction laboratory and microbiology Laboratory Tests 08/04/24 08:00 Test 08/04/24 08:00 Range/Units Serum Glucose 99 74-106 mg/dL Assessment/Plan 52-year-old slightly obese man with complaints of abdominal pains cardiac problems and GI bleeding in the past history of ulcers had Has ultrasound showing possible liver cirrhosis And possible fatty liver CT scan three months ago was in April was apparently unremarkable though without contrast done With a small little possibly benign hepatic cyst in the left lobe of the liver on the CT scan in April 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 Lewis Plan discussed with: Patient RICK LEWIS MD Aug 04, 2024 10:38
--- NOTE | 2024-08-04 12:59 | DVHDS2 ---
Discharge Summary Date of Admission Aug 01, 2024 at 12:59 Date of Discharge: Aug 04, 2024 Admitting Diagnosis rule out GI bleed -rule out gastroenteritis/C diff -recent placement of ICD for ventricular tachycardia -history of ETOH use -peptic ulcer disease -? Anxiety disorder -obesity -primary hypertension Labs/Diagnostic Data: Laboratory Results Test 08/04/24 08:00 08/04/24 04:15 08/02/24 18:46 08/02/24 17:30 White Blood Count 5.9 10^3/uL (4.4-10.8) Red Blood Count 3.61 10^6/uL (4.5-5.90) Hemoglobin 10.9 g/dL (13.5-17.5) Hematocrit 32.4 % (41.0-53.0) Mean Corpuscular Volume 89.9 fL (80.0-100.0) Mean Corpuscular Hemoglobin 30.3 pg (28.0-32.0) Mean Corpuscular Hemoglobin Concent 33.6 g/dL (32.0-36.0) Red Cell Distribution Width 14.2 % (11.8-14.3) Platelet Count 222 10^3/uL (140-450) Mean Platelet Volume 6.9 fL (6.9-10.8) Neutrophils (%) (Auto) 68.4 % (37.0-80.0) Lymphocytes (%) (Auto) 13.0 % (10.0-50.0) Monocytes (%) (Auto) 11.9 % (0.0-12.0) Eosinophils (%) (Auto) 5.5 % (0.0-7.0) Basophils (%) (Auto) 1.2 % (0.0-2.0) Neutrophils # (Auto) 4.0 10 ^3/uL (1.6-8.6) Lymphocytes # (Auto) 0.8 10 ^3/uL (0.4-5.4) Monocytes # (Auto) 0.7 10 ^3/uL (0-1.3) Eosinophils # (Auto) 0.3 10 ^3/uL (0-0.8) Basophils # (Auto) 0.1 10 ^3/uL (0-0.2) Nucleated Red Blood Cells 0.1 % Sodium Level 143 mmol/L (136-145) Potassium Level 3.1 mmol/L (3.5-5.1) Chloride Level 103 mmol/L (98-107) Carbon Dioxide Level 31 mmol/L (20-31) Anion Gap 9 (5-15) Blood Urea Nitrogen 9 mg/dL (9-23) Creatinine 1.37 mg/dL (0.700-1.30) Glomerular Filtration Rate Calc 61 mL/min (>90) BUN/Creatinine Ratio 6.6 (10.0-20.0) Serum Glucose 99 mg/dL (74-106) Calcium Level 9.8 mg/dL (8.7-10.4) Total Bilirubin 0.7 mg/dL (0.2-1.0) Aspartate Amino Transferase (AST) 186 U/L (13-40) Alanine Aminotransferase (ALT) 171 U/L (7-40) Alkaline Phosphatase 67 U/L (46-116) Total Protein 5.9 g/dL (5.7-8.2) Albumin 4.0 g/dL (3.2-4.8) Stool Occult Blood Negative (Negative) Stool Occult Blood Sample #3 (Negative) Direct Bilirubin 0.2 mg/dL (<0.3) HIV (1&2) Antibody Negative (Negative) Urine Opiates Screen Neg (NEGATIVE) Urine Fentanyl Screen Neg (NEGATIVE) Urine Barbiturates Screen Neg (NEGATIVE) Urine Phencyclidine Screen Neg (NEGATIVE) Urine Amphetamines Screen Neg (NEGATIVE) Urine Benzodiazepines Screen Neg (NEGATIVE) Urine Cocaine Screen Neg (NEGATIVE) Urine Cannabinoids Screen Neg (NEGATIVE) Test 08/01/24 15:16 08/01/24 09:45 08/01/24 08:53 Magnesium Level 1.8 mg/dL (1.6-2.6) Urine Color Light-yellow (Yellow) Urine Clarity Clear (Clear) Urine pH 5.5 (5.0-9.0) Urine Specific [place] 1.008 (1.001-1.035) Urine Protein Negative (Negative) Urine Ketones Negative (Negative) Urine Blood Negative /uL (Negative) Urine Nitrite Negative (Negative) Urine Bilirubin Negative (Negative) Urine Urobilinogen Normal mg/dL (Negative) Urine Leukocyte Esterase Negative /uL (Negative) Urine RBC <1 /hpf (0 - 3) Urine WBC 1 /hpf (0 - 3) Urine Squamous Epithelial Cells None seen /hpf (<5) Urine Bacteria None seen /hpf (None Seen) Urine Glucose Normal mg/dL (Normal) Prothrombin Time 11.6 sec (9.3-11.8) Prothrombin Time INR 1.10 (0.9-1.15) Activated Partial Thromboplast Time 26.2 SEC (24.5-34.5) Troponin I High Sensitivity 21 ng/L (</=54) Other Laboratory Tests 08/04/24 08:00 Brief Hx & Hospital Course: This is a 53 years old male with past medical history hypertension, anxiety, congestive heart failure, AICD and arthritis who come to emergency department because of chest pain, abdominal pain for 10 days and plaques stool vomited for eight days. The patient stated that he unable to keep any food down or any liquid down. He said he very dehydrated and weak. The patient was admitted. IV fluid resuscitated was done. Patient able to tolerate diet. Slurry Tank Tender see the patient. He did the pacemaker interrogation the AICD is normal. He did not recommend any further cardiac workup. GI specialist also see the patient. He did a EGD. EGD showed:Hiatal hernia without esophagitis,Mild antral gastritis. Mild pyloric deformity without any streaked stenosis or ulcers or other pathology. PPI as needed. The patient has elevation of liver function tests. Lab test was pending: EDUAR, anti Echo 1 antibody , centromere ab,chromatin ab is still pending. Occult blood in stool negative hemoglobin stable. Dr. Davis, GI specialist recommend the patient to follow up with a casing flusher as outpatient, prefer tertiary center to further workup for Liver copper studies and EDUAR Need to be referred to a referral center if for further treatment if necessary to casing flusher if symptoms and liver enzymes persist to be high. CT scan abdomen pelvis was done and result is pending. Follow up with Dr. Davis for the EGD biopsy and also the CT abdomen and pelvis pending results. Follow up with primary care physician 1-2 weeks. Activity as tolerated. Diet per home diet. Physical exam: HEENT: Normocephalic atraumatic pupils equal react to light and accommodation. Extraocular muscles intact, conjunctiva pink, oropharynx moist, no thrush, no exudate. Lymphatic: No lymphadenopathy Cardiovascular exam: S1, S2 was heard. No murmurs, rubs, gallops Lung: Clear on auscultation bilaterally, no wheeze, rale, rhonchi. GI: Abdominal soft, nondistended, nontenderness, positive bowel sounds. Extremity: No crepitus, cyanosis, edema. Pedal pulses present bilateral. Full range of motion. Skin: Normal turgor, no rash. Psych: Alert, oriented x3. Neurology: No focal deficits, cranial nerve II to XII grossly intact. This medical document was created using an electronic medical record system with [employer] direct computerized dictation system. Although this document has been carefully reviewed, there may still be some phonetic and typographical errors. These areas are purely typographical due to imperfections of the software programs, and do not reflect any compromise in the patient's medical care. Condition at Discharge: Stable Final Diagnosis/Problems List Elevated of liver function tests, need further workup as outpatient per GI recommendation rule out GI bleed hemoglobin stable -rule out gastroenteritis/C diff -recent placement of ICD for ventricular tachycardia -history of ETOH use -peptic ulcer disease -? Anxiety disorder -obesity -primary hypertension Discharge Disposition: Home Discharge Statement: "Patient was advised to return to the ER or call 911 if any headaches, dizziness, shortness of breath, chest pain, abdominal pain, bleeding, fevers, or worsening of medical condition. Patient was counseled about treatment plan, medications, possible side effects, patientverbalized understanding. All questions were answered to the best of my ability. This discharge took greater then 30 minutes in planning, reviewing documentation, counseling the patient, and discussing with other team members." ASSESSMENT ASSESSMENT Assessment Date of Service: Aug 04, 2024 Billing Provider: TYE MORSE MD Common Visit Codes: 67891-[facility]/OBS DISCH DAY >30min TYE MORSE MD Aug 04, 2024 12:59
[2024-08-04] MEDS ORDERED: IOHEXOL 300 MG/ML 100ML BOTTLE IJ ONE (13:25)
--- NOTE | 2024-08-04 15:00 | DVH ---
Exam: CT CT AB PELVIS W WO CON-IV ONLY History: EVALUATE LIVER COMPARISON: CT CHST AB PEL WO CON-NO IV/ORAL on DOS: 04/30/24, HWOCT on DOS: 05/06/22 Technique: Multidetector spiral CT of the abdomen and pelvis was performed from lung bases to pubic s ymphysis. Intravenous contrast was administered during this examination. Multiphasic imaging was ob tained. Axial, coronal and sagittal multiplanar reformats were performed by the technologist on a [employer] workstation. Radiation Dose : 1. Abdomen/Pelvis: CTDIvol 104.2 mGy, DLP 4242.97 mGy*cm. CONTRAST: 100 mL Omni 300 Findings: Lung Bases: No acute or significant lung base finding. Normal heart size. No pleural or pericardial effusion. Liver: The liver is normal in size. Normal hepatic vascular enhancement. There are several small hy poattenuating foci within the liver, the largest measuring up to 1.3 cm within the right lobe. No lola dence of abnormal enhancement on arterial, venous, or delayed phases within any of these hypodense fo ci, suggestive of cysts. Gallbladder and Biliary Tree: Gallbladder is moderately distended and filled with homogeneously sligh tly hyperdense contents. No pericholecystic fluid or inflammation. The common bile duct measures up t o 1.5 cm. There is a small amount of gas near the ampulla of Vater which is similar from prior. Spleen: Unremarkable Pancreas: The pancreas is normal in appearance without focal lesions or abnormal enhancement. Adrenal Glands: Left adrenal lesion that predominantly contains fat and a small amount of soft tissue and measures up to 7.6 cm, stable from prior. Kidneys: Small nonobstructing renal calculi, the largest measuring up to 5 mm on the right. No hydr onephrosis. Bladder: Unremarkable Bowel: The stomach is grossly normal in appearance. Small bowel and colon are normal in caliber and d istribution. The appendix is not visualized; however, no secondary findings of acute appendicitis id entified. Colonic diverticulosis without evidence of diverticulitis. There are areas of mild wall thi ckening in the colon which are likely due to poor distention. Ascites: Absent Lymphadenopathy: No mesenteric, retroperitoneal or periportal lymphadenopathy. Abdominal Wall and Mesentery: Unremarkable. Vasculature: The visualized abdominal aorta is normal in size and caliber. Abdominal and pelvic vess els demonstrate normal enhancement. Pelvic Organs: Unremarkable Musculoskeletal: No aggressive focal bony lesions, acute fractures or dislocation. Moderate multileve l degenerative changes in the visualized spine. Mild anterolisthesis L4/L5. Mild retrolisthesis L5/S1 . IMPRESSION: 1. Several small hypodense foci in the liver appear most compatible with cysts. No evidence of abnor mal enhancement on arterial, venous, or delayed phases. 2. Nonobstructing renal calculi, the largest measuring up to 5 mm in the right. No hydronephrosis. 3. Stable left adrenal myelolipoma. 4. Mild colonic diverticulosis without evidence of diverticulitis. 5. Gallbladder is distended and filled with slightly hyperdense contents which may represent sludge. The common bile duct is dilated up to 1.5 cm which is increased compared to 04/30/2024. Consider cor relation with MRCP. Radiation optimization: All CT scans at this facility use at least one of these dose optimization kin hniques: automated exposure control mA and/or kV adjustment per patient size (includes targeted exam s where dose is matched to clinical indication) or iterative reconstruction.
[2024-08-05 09:14] LABS: Hepatitis B Surface Antibody Negative (Negative)
[2024-08-05 09:26] LABS: Hepatitis B Surface Antigen Negative (Negative)
[2024-08-05 09:46] LABS: Hepatitis A Ab IgM Negative
[2024-08-05 09:47] LABS: Hepatitis B Core IgM Negative (Negative)
[2024-08-05 09:48] LABS: Hepatitis C Antibody Negative (Negative)
[2024-08-05 09:53] LABS: Hepatitis A Total Antibody Negative (Negative)
[2024-08-05 15:06] LABS: Anti-Centromere B Antibody <0.2 AI (0.0-0.9); Anti-Jo-1 Antibody <0.2 AI (0.0-0.9); Anti-dsDNA Antibody <1 IU/mL (0-9); Antichromatin Antibody <0.2 AI (0.0-0.9); Antiscleroderma-70 Antibody <0.2 AI (0.0-0.9); RNP Antibody <0.2 AI (0.0-0.9); Sjogren's Anti-SS-A Antibody <0.2 AI (0.0-0.9); Sjogren's Anti-SS-B Antibody <0.2 AI (0.0-0.9); Smith Antibody <0.2 AI (0.0-0.9)
[2024-08-06 08:07] LABS: RPR Non Reactive (Non Reactive)
[2024-08-06 09:07] LABS: RPR Non Reactive (Non Reactive)
[2024-08-06 12:07] LABS: Hepatitis B Core Total Antibod Negative (Negative)
[2024-08-06 14:07] LABS: Anti-Centromere B Antibody <0.2 AI (0.0-0.9); Anti-Jo-1 Antibody <0.2 AI (0.0-0.9); Anti-Nuclear Antibody Direct Negative (Negative); Anti-dsDNA Antibody <1 IU/mL (0-9); Antichromatin Antibody <0.2 AI (0.0-0.9); Antiscleroderma-70 Antibody <0.2 AI (0.0-0.9); RNP Antibody <0.2 AI (0.0-0.9); Sjogren's Anti-SS-A Antibody <0.2 AI (0.0-0.9); Sjogren's Anti-SS-B Antibody <0.2 AI (0.0-0.9); Smith Antibody <0.2 AI (0.0-0.9)
== END 2024-08-04 15:25 | disposition home or self-care (01) | DRG 377 ==
LOC: ER 08:17 → EDUNIT# 08:17 → EDBD 08:17 → TELE 12:59 → TELE-CENTR 16:00
PROVIDERS: ADMIT Nurse Practitioner Family; ATTEND Nurse Practitioner Acute Care
PROC: 05HB33Z Insertion of Infusion Device into Right Basilic Vein, Percutaneous Approach (ICD-10-PCS; 2024-08-01)
PROC: B54MZZA Ultrasonography of Right Upper Extremity Veins, Guidance (ICD-10-PCS; 2024-08-01)
PROC: 4B02XTZ Measurement of Cardiac Defibrillator, External Approach (ICD-10-PCS; 2024-08-02)
PROC: 0DB68ZX Excision of Stomach, Via Natural or Artificial Opening Endoscopic, Diagnostic (ICD-10-PCS; principal; 2024-08-04 09:12)
DX: K29.71 Gastritis, unspecified, with bleeding (principal); N17.0 Acute kidney failure with tubular necrosis; A04.72 Enterocolitis due to Clostridium difficile, not specified as recurrent; I50.32 Chronic diastolic (congestive) heart failure; E86.0 Dehydration; K27.4 Chronic or unspecified peptic ulcer, site unspecified, with hemorrhage; E87.6 Hypokalemia; I11.0 Hypertensive heart disease with heart failure; K44.9 Diaphragmatic hernia without obstruction or gangrene; F41.9 Anxiety disorder, unspecified; E78.5 Hyperlipidemia, unspecified; E66.01 Morbid (severe) obesity due to excess calories; F17.200 Nicotine dependence, unspecified, uncomplicated; I27.20 Pulmonary hypertension, unspecified; G47.33 Obstructive sleep apnea (adult) (pediatric); F14.10 Cocaine abuse, uncomplicated; K21.9 Gastro-esophageal reflux disease without esophagitis; K57.30 Diverticulosis of large intestine without perforation or abscess without bleeding; Z95.810 Presence of automatic (implantable) cardiac defibrillator; Z90.79 Acquired absence of other genital organ(s); Z87.11 Personal history of peptic ulcer disease; Z86.79 Personal history of other diseases of the circulatory system; Z85.46 Personal history of malignant neoplasm of prostate; Z83.3 Family history of diabetes mellitus; Z79.899 Other long term (current) drug therapy; Z68.31 Body mass index [BMI] 31.0-31.9, adult
CPT/HCPCS: 36415; 43239; 71045; 74178; 76700; 80048; 80053; 80076; 80307; 81001; 82270; 83516; 83735; 84132; 84484; 85025; 85610; 85730; 86038; 86225; 86235; 86592; 86703; 86705; 86706; 86708; 86709; 86803; 86850; 86900; 86901; 87045; 87340; 87427; 93005; 93306; 99291; G0378; J2250; J2470; J3490

== ENCOUNTER → 2024-10-04 | Day surgery (SDC) | payer OTHER ==
[2024-09-30 10:13] LABS: Urine Bacteria None Seen /hpf (None Seen)
[2024-09-30 10:18] LABS: Basophils # (auto) 0 10 ^3/uL (0-0.2); Basophils % (auto) 0.7 % (0.0-2.0); Eosinophils # (auto) 0.2 10 ^3/uL (0-0.8); Eosinophils % (auto) 3.8 % (0.0-7.0); Hematocrit 35.9 % (41.0-53.0); Hemoglobin 11.9 g/dL (13.5-17.5); Lymphocytes # (auto) 1.4 10 ^3/uL (0.4-5.4); Mean Corpuscular Hemoglobin 29.2 pg (28.0-32.0); Mean Corpuscular Hgb Conc. 33.1 g/dL (32.0-36.0); Mean Corpuscular Volume 88.1 fL (80.0-100.0); Monocytes # (auto) 0.6 10 ^3/uL (0-1.3); Monocytes % (auto) 9.4 % (0.0-12.0); Neutrophils # (auto) 3.7 10 ^3/uL (1.6-8.6); Neutrophils % (auto) 63.1 % (37.0-80.0); Nucleated Red Blood Cells % 0.1 %; Platelet Count (auto) 230 10^3/uL (140-450); Red Blood Cells 4.07 10^6/uL (4.5-5.90); Red Cell Distribution Width 16.1 % (11.8-14.3); White Blood Cell 5.9 10^3/uL (4.4-10.8)
[2024-09-30 10:32] LABS: INR 0.96 (0.9-1.15); Partial Thromboplastin Time 26.2 SEC (24.5-34.5); Prothrombin Time 10.2 sec (9.3-11.8)
[2024-09-30 12:08] LABS: Urine Blood Negative /uL (Negative); Urine Clarity Clear (Clear); Urine Color Colorless (Yellow); Urine Protein, UAD Negative (Negative); Urine Specific Gravity 1.006 (1.001-1.035); Urine Squamous Epithelial Cell FEW /hpf (<5); Urine Urobilinogen Normal (Negative); Urine WBC 1 /HPF (0-3)
[2024-09-30 12:13] LABS: Albumin 4.2 g/dL (3.2-4.8); Alkaline Phosphatase 56 U/L (46-116); Anion Gap 5 (5-15); Aspartate Aminotransferase 26 U/L (13-40); BUN/Creatinine Ratio 14.4 (10.0-20.0); Blood Urea Nitrogen 23 mg/dL (9-23); Calcium 9.7 mg/dL (8.7-10.4); Chloride 99 mmol/L (98-107); Glucose 86 mg/dL (74-106); Sodium 139 mmol/L (136-145)
[2024-09-30 12:14] LABS: Total Protein 6.2 g/dL (5.7-8.2)
[2024-09-30 12:16] LABS: Alanine Aminotransferase 42 U/L (7-40); Carbon Dioxide 35 mmol/L (20-31)
[2024-09-30 12:30] LABS: Bilirubin, Total 0.4 mg/dL (0.2-1.0)
[~2024-10-04] VITALS: Ht 180.3 cm; Wt 93.0 kg
[~2024-10-04] MED LIST changes: +ASPI-498 OR; -BACL10TA PO; +COLC1CAP PO; -HYDR-3682 PO; -HYDR-4902 PO; +HYDROmorphone HCL 2 MG/ML VL/or syr IV PRN; +KETAMINE 50mg/ML 1ml syringe ONE; +LIDOCAINE 1% INJ PF 5ML AMP ONE; +LIDOCAINE VISCOUS 2% 15ML UD ONE; +MAGN400T40 OR; +METO25TA36 PO; +METOCLOPRAMIDE HCL 5MG/ml INJ 2ml VIAL IV ONE; +MIDAZOLAM HCL 2MG/2ML 2ml VIAL (1mg/ml) ONE; +MORPHINE SULFATE 4 MG/ML SYR/VIAL IV PRN; +MORPHINE SULFATE INJ 2 MG/ml SYRG IV PRN; +ONDANSETRON HCL 4 MG/2 ML VIAL ONE; +POTA-180 PO; -POTA-36 PO; +PROPOFOL 10 MG/ML 20 ML IV ONE; +SODIUM CHLORIDE LOCK 10 ML ONE; +fentaNYL CITRATE 100 MCG/2 ML VL ONE
[2024-10-04 13:41] VITALS: PULSE 67; RESP 19; TEMP 98; O2SAT 94
[2024-10-04 13:51] VITALS: PULSE 62; RESP 13; O2SAT 90
--- NOTE | 2024-10-04 15:33 | DVHOP2 ---
Operative Report DATE OF OPERATION: 10/04/24 PROCEDURE: Upper Endoscopy with biopsy. PREOPERATIVE INDICATION: The patient is a 54 -year-old male undergoing endoscopy for chronic GERD and re-evaluation of duodenal ulcer POSTOPERATIVE DIAGNOSES: 1. 1-2 cm sliding-type hiatal hernia with slightly irregular squamocolumnar ju nction and patient had some whitish yellowish plaques seen in the distal esophagus from which biopsies were obtained to rule out Yuliya 2. Mild antral and pre-pyloric gastritis otherwise normal examination up to the 2nd and 3rd part of the duodenum with complete healing of the pyloric channel ulceration PROCEDURE PERFORMED BY: Isauro Turner GI NURSE: Mauricio SCOPE: Olympus videoendoscope. ASA CLASS: 2. PREOPERATIVE MEDICATIONS: Dr. Rosa Echols PROCEDURE IN DETAIL: After obtaining an informed consent, the patient was placed on left lateral decubitus position. The patient was then sedated with the above medications. A bite block was placed between his teeth. The endoscope was then passed through the oropharynx, into the esophagus, and through the stomach and pylorus up to the second and third part of the duodenum. The endoscope was then withdrawn. The 2nd and 3rd part of the duodenum and the duodenal bulb were normal. The pre-pyloric area and antrum showed mild antral gastritis There was minimal hyperemia of the pyloric channel but no residual stricture and no residual ulceration noted On retroflexion the fundus cardia and angularis were normal. Duodenal and gastric biopsies were obtained. The endoscope was then withdrawn into the distal esophagus where he had a 1-2 cm sliding-type hiatal hernia with slightly irregular squamocolumnar junction There were some whitish yellowish plaques noted in the distal and mid esophagus from which biopsies were obtained to rule out Yuliya The patient tolerated the procedure well without difficulty. COMPLICATIONS : None SPECIMENS: Duodenal biopsy Gastric biopsy Esophageal biopsies DISPOSITION: Stable D/C to home PLAN: 1. Await for biopsy result 2. Will place pt on Protonix 40 p.o. daily 3. Carafate 1 g p.o. q.h.s. 4. DC aspirin NSAIDs smoking alcohol 5. Outpatient follow up with me in 4-6 weeks to review results and discuss further management 6. Start soft mechanical diet and advance as tolerated ISAURO TURNER MD Oct 04, 2024 15:33
--- NOTE | 2024-10-04 15:37 | DVHOP2 ---
Operative Report DATE OF OPERATION: 10/04/24 PROCEDURE: Colonoscopy with biopsy. PREOPERATIVE INDICATION: The patient is a 54 -year-old male undergoing colonoscopy for evaluation of chronic diarrhea and for colon cancer screening POSTOPERATIVE DIAGNOSES: 1. There was mild scattered diverticulosis 2. Trace internal hemorrhoids otherwise normal examination up to the cecum and terminal ileum PROCEDURE PERFORMED BY: Isauro Turner M.D. SCOPE: Olympus videocolonoscope. ASA CLASS: 3 PREOPERATIVE MEDICATIONS: Dr. Rosa Echols PROCEDURE IN DETAIL: After obtaining an informed consent, the patient was placed on left lateral decubitus position. He was then sedated with the above medications. A rectal examination was performed that was normal. The colonoscope was then passed through the anus into the rectosigmoid and through the descending, transverse, and ascending colon up to the cecum with visualization of the appendiceal orifice, base of the cecum and the ileocecal valve. The colonoscope was then withdrawn. The distal 5-10 cm of the terminal ileum were normal The colonic mucosa appeared to be normal. Random colon biopsies were obtained to rule out microscopic colitis. There were no polyps or masses. Patient had mild scattered diverticular disease On retroflexion and straight on view he had trace internal hemorrhoids The patient tolerated the procedure well without difficulty. WITHDRAWAL TIME: 7 minutes QUALITY OF THE PREP: [place] Bowel Prep score: 9. COMPLICATIONS : None SPECIMENS: Random colon biopsies DISPOSITION: Stable D/C to home PLAN: 1. Repeat colonoscopy in 10 years 2. Resume GI soft diet advance as tolerated 3. Await biopsy results 4. Outpatient follow up with me in 2-4 weeks to review results and discuss further management ISAURO TURNER MD Oct 04, 2024 15:37
== END | disposition home or self-care (01) ==
LOC: GI 11:12
PROVIDERS: ATTEND Internal Medicine Gastroenterology
DX: K52.9 Noninfective gastroenteritis and colitis, unspecified (principal); K57.30 Diverticulosis of large intestine without perforation or abscess without bleeding; B37.81 Candidal esophagitis; K21.00 Gastro-esophageal reflux disease with esophagitis, without bleeding; K29.50 Unspecified chronic gastritis without bleeding; K44.9 Diaphragmatic hernia without obstruction or gangrene; K64.8 Other hemorrhoids; F17.200 Nicotine dependence, unspecified, uncomplicated; I11.0 Hypertensive heart disease with heart failure; I42.9 Cardiomyopathy, unspecified; G47.33 Obstructive sleep apnea (adult) (pediatric); E66.01 Morbid (severe) obesity due to excess calories; Z68.28 Body mass index [BMI] 28.0-28.9, adult; I25.119 Atherosclerotic heart disease of native coronary artery with unspecified angina pectoris; F41.9 Anxiety disorder, unspecified; M10.9 Gout, unspecified; Z95.810 Presence of automatic (implantable) cardiac defibrillator; Z79.899 Other long term (current) drug therapy; Z98.890 Other specified postprocedural states
CPT/HCPCS: 36415; 43239; 45380; 80053; 81001; 85025; 85610; 85730; 88305; 88312; 88342; J2250; J2405; J2704; J3010; J7030

== ENCOUNTER 2025-08-06 06:47 | Emergency (ER) | payer OTHER ==
[~2025-08-06] VITALS: Ht 177.8 cm; Wt 99.1 kg
[~2025-08-06 06:47] MED LIST changes: -HYDROmorphone HCL 2 MG/ML VL/or syr IV PRN; -KETAMINE 50mg/ML 1ml syringe ONE; -LIDOCAINE 1% INJ PF 5ML AMP ONE; -LIDOCAINE VISCOUS 2% 15ML UD ONE; -METOCLOPRAMIDE HCL 5MG/ml INJ 2ml VIAL IV ONE; -MIDAZOLAM HCL 2MG/2ML 2ml VIAL (1mg/ml) ONE; -MORPHINE SULFATE 4 MG/ML SYR/VIAL IV PRN; -MORPHINE SULFATE INJ 2 MG/ml SYRG IV PRN; -ONDANSETRON HCL 4 MG/2 ML VIAL ONE; -PROPOFOL 10 MG/ML 20 ML IV ONE; -SODIUM CHLORIDE LOCK 10 ML ONE; -fentaNYL CITRATE 100 MCG/2 ML VL ONE
--- NOTE | 2025-08-06 07:18 | ED.PDOC ---
History of Present Illness HPI Comments 54-year-old male BIBA with prior medical history of bleeding ulcer, prostate cancer, hypertension, high lipids, pacemaker, defibrillator: Surgical history of foot surgery, heart ablation partial kidney removal, partial prostate removal in the chief complaint of abdominal pain. Patient reports on having had a duodenal dilation at [facility] yesterday and had a sudden onset of left-sided chest pain associated with shortness a breath which started at 6:00 p.m. yesterday and dark stools which began midnight. The physician procedure of the patient is Dr. Ji Taylor. Patient notes on having had no sleep due from the pain. Denies any other symptoms at this time. Denies chills, fever, N/V/D. No other associated symptoms, modifiers, recent injuries or sick contacts present at this time. Chief Complaint: Abdominal Pain Time Seen by MD: 07:15 Primary Care Provider: JULIA Hester Notes: Nurses Notes, Medications, Allergies Allergies: Coded Allergies: No Known Drug Allergy (Verified Allergy, Unknown, 04/08/22) Home Meds Active Scripts Pantoprazole Sodium Sesquihydr (Pantoprazole Sodium) 40 Mg Tab, 40 MG PO BID for 30 Days, #60 TAB Prov:SHANTEL VARGAS RESIDENT 05/03/24 Reported Medications Metoprolol Succinate (Toprol Xl) 25 Mg Tab, 25 MG PO BID, TAB 09/30/24 Aspirin (ASPIRIN 81) 81 Mg Tab, 81 MG OR DAILY, TAB 09/30/24 Colchicine (Colchicine) 0.6 Mg Cap, 0.6 MG PO BID, CAP 08/02/24 Potassium Chloride (Potassium Chloride ER) 20 Meq Tab, 20 MEQ PO TIDWM, TAB 08/02/24 Magnesium Oxide (MAGNESIUM OXIDE) 400 Mg Tab, 400 MG OR DAILY, TAB 08/02/24 Hydrochlorothiazide W/Triamter (Triamterene/Hydrochloroth) 1 Cap Cap, 1 CAP PO DAILY, CAP 08/02/24 Gabapentin (Gabapentin) 300 Mg Cap, 1 CAP PO TID for 30 Days, #60 07/01/24 Isosorbide Mononitrate (Isosorbide Mononitrate) 10 Mg Tab, 5 MG PO BID, TAB 06/29/24 Sucralfate (Sucralfate) 1 Gm Tab, 1 TAB PO BID 06/28/24 Allopurinol (Allopurinol) 100 Mg Tab, 1 TAB PO TID 06/28/24 Bupropion Hcl (Bupropion Hcl Er) 100 Mg Tab, 1 TAB PO QAM for 30 Days, #30 05/02/24 Clonidine Hydrochloride (Clonidine Hcl) 0.1 Mg Tab, 0.1 MG PO BID for 30 Days, MG 05/01/24 Furosemide (Furosemide) 40 Mg Tab, 1 TAB PO DAILY 04/30/24 Lorazepam (Lorazepam) 1 Mg Tab, 1 TAB PO BID PRN for ANXIETY 04/30/24 Hydralazine HCl (Hydralazine HCl) 25 Mg Tab, 1 TAB PO BID 04/30/24 Amiodarone HCl (Amiodarone HCl) 200 Mg Tab, 1 TAB PO DAILY 04/30/24 Atorvastatin Calcium (ATORVASTATIN CALCIUM) 20 Mg Tab, 1 TAB PO DAILY 04/30/24 Amlodipine Besylate (Amlodipine Besylate) 5 Mg Tab, 5 MG PO DAILY for HTN, MG 04/08/22 Information Source: Patient, Emergency Med Personnel Mode of Arrival: EMS Severity: Moderate Timing: Hours Duration: Since onset, Hours Prehospital treatment: None Past Medical History PAST MEDICAL HISTORY: Anxiety, Arthritis, Cancer (Prostate), CHF, High Lipids, HTN Past Medical History (Other): Bleeding ulcer Surgical History: Appendectomy, Pacemaker, Tonsillectomy Surgical History (Other): Defibrillator, for surgery, heart ablation, partial kidney removal, partial prostate removal Family History Family History: Reviewed,noncontributory to illness, Unknown Social History Smoker: Unknown Alcohol: Unknown Drugs: Unknown Lives In: Home Constitutional: denies: chills, diaphoresis, fatigue, fever, malaise, sweats, weakness, others EENTM: denies: blurred vision, double vision, ear bleeding, ear discharge, ear drainage, ear pain, ear ringing, eye pain, eye redness, hearing loss, mouth pain, mouth swelling, nasal discharge, nose bleeding, nose congestion, nose pain, photophobia, tearing, throat pain, throat swelling, voice changes, others Respiratory: reports: shortness of breath; denies: cough, hemoptysis, orthopnea, SOB at rest, SOB with excertion, stridor, wheezing, others Cardiovascular: reports: chest pain; denies: dizzy spells, diaphoresis, Dyspnea on exertion, edema, irregular heart beat, left arm pain, lightheadedness, palpitations, PND, syncope, others Gastrointestinal: reports: abdominal pain, rectal bleeding; denies: abdomen distended, blood streaked bowels, constipated, diarrhea, dysphagia, difficulty swallowing, hematemesis, melena, nausea, poor appetite, poor fluid intake, rectal pain, vomiting, others Genitourinary: denies: burning, dysuria, flank pain, frequency, hematuria, incontinence, penile discharge, penile sore, pain, testicle pain, testicle sw elling, urgency, others Neurological: denies: dizziness, fainting, headache, left sided numbness, left sided weakness, numbness, paresthesia, pre-existing deficit, right sided numbness, right sided weakness, seizure, speech problems, tingling, tremors, weakness, others Musculoskeletal: denies: back pain, gout, joint pain, joint swelling, muscle pain, muscle stiffness, neck pain, others Integumetry: denies: bruises, change in color, change in hair/nails, dryness, laceration, lesions, lumps, rash, wounds, others Allergic/Immunocompromised: denies: Difficulty Healing, Frequent Infections, Hives, Itching, others Hematologic/Lymphatic: denies: anemia, blood clots, easy bleeding, easy bruising, swollen glands, others Endocrine: denies: excessive hunger, excessive sweating, excessive thirst, excessive urination, flushing, intolerance to cold, intolerance to heat, unexplained weight gain, unexplained weight loss, others Psychiatric: denies: anxiety, bipolar disorder, depression, hopeless, panic disorder, schizophrenia, sleepless, suicidal, others All Other Systems: Reviewed and Negative Physical Exam General Appearance: No Apparent Distress, Normal HEENT: Normal ENT Inspection, Pharynx Normal, TMs Normal Neck: Full Range of Motion, Non-Tender, Normal, Normal Inspection Respiratory: Chest Non-Tender, Lungs Clear, No Accessory Muscle Use, No Respiratory Distress, Normal Breath Sounds Cardiovascular: No Edema, No JVD, No Murmur, No Gallop, Normal Peripheral Pulses, Regular Rate/Rhythm Breast Exam: Deferred Gastrointestinal: No Organomegaly, Non Tender, No Pulsatile Mass, Normal Bowel Sounds, Soft Genitalia: Deferred Pelvic: Deferred Rectal: Deferred Extremities: No calf tenderness, Normal capillary refill, Normal inspection, No rmal range of motion, Non-tender, No pedal edema Musculoskeletal : Apperance: Normal Neurologic: Alert, type mapper II-XII nml as Tested, No Motor Deficits, Normal Affect, Normal Mood, No Sensory Deficits Cerebellar Function: Normal Reflexes: Normal Skin: Dry, Normal Color, Warm Lymphatic: No Adenopathy Was a procedure done? Was a procedure done?: No Differential Dx Considerations may include: Abdominal pain X-Ray, Labs, Meds, VS Vital Signs Date Time Temp Pulse Resp B/P (MAP) Pulse Ox O2 Delivery O2 Flow Rate FiO2 08/06/25 13:05 98.1 69 18 104/60 (75) 98 98.1 08/06/25 09:31 74 20 98 Room Air 08/06/25 09:30 98.7 74 20 126/95 (105) 98 98.7 08/06/25 07:02 70 08/06/25 06:55 98.7 85 18 113/81 99 98.7 Lab Test 08/06/25 09:53 08/06/25 07:50 Range/Units Lactic Acid Level 1.2 2.4 *H 0.4-2.0 mmol/L White Blood Count 13.2 H 4.4-10.8 10^3/uL Red Blood Count 3.15 L 4.5-5.90 10^6/uL Hemoglobin 10.1 L 13.5-17.5 g/dL Hematocrit 30.7 L 41.0-53.0 % Mean Corpuscular Volume 97.4 80.0-100.0 fL Mean Corpuscular Hemoglobin 32.1 H 28.0-32.0 pg Mean Corpuscular Hemoglobin Concent 33.0 32.0-36.0 g/dL Red Cell Distribution Width 14.4 H 11.8-14.3 % Platelet Count 258 140-450 10^3/uL Mean Platelet Volume 7.3 6.9-10.8 fL Neutrophils (%) (Auto) 83.2 H 37.0-80.0 % Lymphocytes (%) (Auto) 8.1 L 10.0-50.0 % Monocytes (%) (Auto) 8.1 0.0-12.0 % Eosinophils (%) (Auto) 0.1 0.0-7.0 % Basophils (%) (Auto) 0.5 0.0-2.0 % Neutrophils # (Auto) 11.0 H 1.6-8.6 10 ^3/uL Lymphocytes # (Auto) 1.1 0.4-5.4 10 ^3/uL Monocytes # (Auto) 1.1 0-1.3 10 ^3/uL Eosinophils # (Auto) 0 0-0.8 10 ^3/uL Basophils # (Auto) 0.1 0-0.2 10 ^3/uL Nucleated Red Blood Cells 0.0 % Sodium Level 146 H 136-145 mmol/L Potassium Level 3.9 3.5-5.1 mmol/L Chloride Level 105 98-107 mmol/L Carbon Dioxide Level 30 20-31 mmol/L Anion Gap 11 5-15 Blood Urea Nitrogen 43 H 9-23 mg/dL Creatinine 1.23 0.700-1.30 mg/dL Glomerular Filtration Rate Calc 69 >90 mL/min BUN/Creatinine Ratio 35.0 H 10.0-20.0 Serum Glucose 87 74-106 mg/dL Calcium Level 9.2 8.7-10.4 mg/dL Total Bilirubin 0.5 0.2-1.0 mg/dL Aspartate Amino Transferase (AST) 12 L 13-40 U/L Alanine Aminotransferase (ALT) 20 7-40 U/L Alkaline Phosphatase 38 L 46-116 U/L Total Protein 5.9 5.7-8.2 g/dL Albumin 4.0 3.2-4.8 g/dL Lipase 34 12-53 U/L Time of 1ST Reevaluation: 07:45 Reevaluation 1ST: Unchanged Patient Education/Counseling: Diagnosis, Treatment, Prognosis Family Education/Counseling: No Family Present SEPSIS Sepsis Screen Physician Orders Chest Portable (08/06/25 07:10) Imaging Transfer Request (08/06/25 11:27) Vital Signs Date Time Temp Pulse Resp B/P (MAP) Pulse Ox O2 Delivery O2 Flow Rate FiO2 08/06/25 13:05 98.1 69 18 104/60 (75) 98 98.1 08/06/25 09:31 74 20 98 Room Air 08/06/25 09:30 98.7 74 20 126/95 (105) 98 98.7 08/06/25 07:02 70 08/06/25 06:55 98.7 85 18 113/81 99 98.7 Laboratory Tests Test 08/06/25 07:50 08/06/25 09:53 Lactic Acid Level 2.4 mmol/L (0.4-2.0) *H 1.2 mmol/L (0.4-2.0) White Blood Count 13.2 10^3/uL (4.4-10.8) H Departure 1 Departure Time of Disposition: 14:01 (Patient's workup initially he is concerning for GI bleed. Discussed with the patient's surgeon who recommended we discharge patient had the patient go directly to the surgeon.) Impression: Primary Impression: GI bleed Additional Impression: Post-op bleeding Disposition: 01 HOME / SELF CARE / HOMELESS Condition: Fair Additional Instructions: It is important that you go directly to your doctor at [facility]. You should head there directly after leaving here. Discharged With: Self Critical Care Note Critical Care Time?: No Stability Stability form required: No I personally scribed for EVAN MURRY MD ([email or web address]) on 08/06/25 at 07:17. Electronically submitted by Juan Washington ([email or web address]). EVAN MURRY MD Aug 06, 2025 07:17
--- NOTE | 2025-08-06 07:27 | ECG ---
[facility] Test Date: 2025-08-06 Test Time: 07:02:29 Pat Name: CLARISA GONZALEZ Department: ED Room: Gender: M [employer] Member: YENNI : 1970 Requested By: EVAN MURRY Order Number: [id number] Reading MD: Bryce López Measurements Intervals [place] Rate: 70 P: 9 TN: 156 QRS: -39 QRSD: 101 T: 2 QT: 435 QTc: 470 Interpretive Statements Sinus rhythm Inferior infarct, old Probable anterior infarct, age indeterminate Electronically Signed On 08-07-2025 20:08:54 PST by Bryce López Please click the below link to view image of tracing.
--- NOTE | 2025-08-06 07:56 | DVH ---
INDICATION: epigastric pain s/p egd TECHNIQUE: Frontal and lateral view of the chest was obtained COMPARISON: XR CHEST 2 VIEW on DOS: 04/14/25, CT CHEST WO on DOS: 04/14/25, CR CHEST 2 VIEW on DOS: 09/02/24, XY CHEST PORTABLE on DOS: 08/01/24, XY CHEST XRAY 1 VIEW on DOS: 07/04/24, XR CHEST 2 VIEW on DOS: 04/14/25 FINDINGS: Lines and Tubes: Left-sided pacemaker/ AICD with leads in appropriate positioning. Lungs: No focal consolidation. Pleura: No effusion. No pneumothorax. Cardiomediastinal contours: Unremarkable Bones: No acute osseous abnormality. IMPRESSION: No acute cardiopulmonary disease.
[2025-08-06 08:06] LABS: Hematocrit 30.7 % (41.0-53.0); Hemoglobin 10.1 g/dL (13.5-17.5); Mean Corpuscular Hemoglobin 32.1 pg (28.0-32.0); Mean Corpuscular Volume 97.4 fL (80.0-100.0); Nucleated Red Blood Cells % 0.0 %
[2025-08-06 08:20] LABS: Alanine Aminotransferase 20 U/L (7-40); Anion Gap 11 (5-15); BUN/Creatinine Ratio 35.0 (10.0-20.0); Calcium 9.2 mg/dL (8.7-10.4); Carbon Dioxide 30 mmol/L (20-31); Chloride 105 mmol/L (98-107); Glucose 87 mg/dL (74-106); Potassium 3.9 mmol/L (3.5-5.1); Total Protein 5.9 g/dL (5.7-8.2)
[2025-08-06 08:21] LABS: Albumin 4.0 g/dL (3.2-4.8); Bilirubin, Total 0.5 mg/dL (0.2-1.0)
[2025-08-06 08:24] LABS: Alkaline Phosphatase 38 U/L (46-116); Blood Urea Nitrogen 43 mg/dL (9-23); Sodium 146 mmol/L (136-145)
[2025-08-06 08:26] LABS: Lactic Acid w/Reflex 2.4 mmol/L (0.4-2.0)
[2025-08-06 08:38] LABS: Lipase 34 U/L (12-53)
[2025-08-06 15:50] VITALS: BP 110/70; PULSE 72; RESP 16; TEMP 98.1; O2SAT 97
--- NOTE | 2025-08-06 16:04 | DVHINCON2 ---
Date of service: Aug 06, 2025 History of Present Illness HPI Patient is a 54-year-old gentleman who presented to the hospital with abdominal pain. He was in [facility] yesterday and had duodenal dilatation. He started having abdominal pain yesterday afternoon. Around 6:00 p.m. yesterday afternoon, the patient started having shortness of breath and chest discomfort also. He mentions that he started having dark stool at midnight which was continued today and decided to come to emergency room. While in emergency room, they were trying to arrange and transfer the patient to [facility] because of recent GI evaluation/management over there. There has been report of [facility] to be on diversion and the patient to be admitted here. Cardiology is involved for cardiac aspects of care. Patient is known to our practice from outside and before. Home Meds Active Scripts Pantoprazole Sodium Sesquihydr (Pantoprazole Sodium) 40 Mg Tab, 40 MG PO BID for 30 Days, #60 TAB Prov:SHANTEL VARGAS RESIDENT 05/03/24 Reported Medications Metoprolol Succinate (Toprol Xl) 25 Mg Tab, 25 MG PO BID, TAB 09/30/24 Aspirin (ASPIRIN 81) 81 Mg Tab, 81 MG OR DAILY, TAB 09/30/24 Colchicine (Colchicine) 0.6 Mg Cap, 0.6 MG PO BID, CAP 08/02/24 Potassium Chloride (Potassium Chloride ER) 20 Meq Tab, 20 MEQ PO TIDWM, TAB 08/02/24 Magnesium Oxide (MAGNESIUM OXIDE) 400 Mg Tab, 400 MG OR DAILY, TAB 08/02/24 Hydrochlorothiazide W/Triamter (Triamterene/Hydrochloroth) 1 Cap Cap, 1 CAP PO DAILY, CAP 08/02/24 Gabapentin (Gabapentin) 300 Mg Cap, 1 CAP PO TID for 30 Days, #60 07/01/24 Isosorbide Mononitrate (Isosorbide Mononitrate) 10 Mg Tab, 5 MG PO BID, TAB 06/29/24 Sucralfate (Sucralfate) 1 Gm Tab, 1 TAB PO BID 06/28/24 Allopurinol (Allopurinol) 100 Mg Tab, 1 TAB PO TID 06/28/24 Bupropion Hcl (Bupropion Hcl Er) 100 Mg Tab, 1 TAB PO QAM for 30 Days, #30 05/02/24 Clonidine Hydrochloride (Clonidine Hcl) 0.1 Mg Tab, 0.1 MG PO BID for 30 Days, MG 05/01/24 Furosemide (Furosemide) 40 Mg Tab, 1 TAB PO DAILY 04/30/24 Lorazepam (Lorazepam) 1 Mg Tab, 1 TAB PO BID PRN for ANXIETY 04/30/24 Hydralazine HCl (Hydralazine HCl) 25 Mg Tab, 1 TAB PO BID 04/30/24 Amiodarone HCl (Amiodarone HCl) 200 Mg Tab, 1 TAB PO DAILY 04/30/24 Atorvastatin Calcium (ATORVASTATIN CALCIUM) 20 Mg Tab, 1 TAB PO DAILY 04/30/24 Amlodipine Besylate (Amlodipine Besylate) 5 Mg Tab, 5 MG PO DAILY for HTN, MG 04/08/22 Past Medical History Others Past medical history includes morbid obesity, congestive heart failure, diastolic, history of prostate cancer (status post prostatectomy), obstructive sleep apnea (status post its surgery), old history of cocaine abuse, history of frequent PVC (status post multiple ablation), pulmonary hypertension, hyperlipidemia, hypertension, history of sustained ventricular tachycardia (status post ICD implantation, Medtronic), history of ICD lead dislodgement and a lead revision, anxiety disorder, DJD, GERD, gout, gastric ulcer, diverticular disease and hiatal hernia. He has had appendectomy and tonsillectomy before. Patient Family History: Diabetes mellitus G8 BROTHER FH: cancer G8 FATHER Smoker: No Hx (Negative) Review of Systems Constitutional: No symptom reported Ears, Nose, & Throat: No symptom reported Eyes: No symptom reported Cardiovascular: Chest Pain Gastrointestinal: Abdominal Pain, Melena All Other Systems 14 point review of system was performed. Relevant findings as per above and as per HPI. Otherwise negative. H&P Exam Vital Signs Vital Signs Date Time Temp Pulse Resp B/P (MAP) Pulse Ox O2 Delivery O2 Flow Rate FiO2 08/06/25 15:50 98.1 72 16 110/70 (83) 97 98.1 08/06/25 09:31 Room Air General Appeara: Well developed Eye Exam: bilateral eye PERRL Pulmonary/Respiratory: Rhonci Cardiovascular/Chest: Normal inspection, Regular rate Peripheral Pulses: 2+ carotid (R), 2+ carotid (L), 2+ femoral (R), 2+ femoral (L) Abdominal Exam: Normal bowel sounds, Soft Neuro/Mental St: Alert, Oriented Appearance: Appropriate appearance Eye contact/ Speech: Cooperative Labs/Xrays Labs Test 08/06/25 09:53 08/06/25 07:50 Range/Units Lactic Acid Level 1.2 0.4-2.0 mmol/L White Blood Count 13.2 H 4.4-10.8 10^3/uL Red Blood Count 3.15 L 4.5-5.90 10^6/uL Hemoglobin 10.1 L 13.5-17.5 g/dL Hematocrit 30.7 L 41.0-53.0 % Mean Corpuscular Volume 97.4 80.0-100.0 fL Mean Corpuscular Hemoglobin 32.1 H 28.0-32.0 pg Mean Corpuscular Hemoglobin Concent 33.0 32.0-36.0 g/dL Red Cell Distribution Width 14.4 H 11.8-14.3 % Platelet Count 258 140-450 10^3/uL Mean Platelet Volume 7.3 6.9-10.8 fL Neutrophils (%) (Auto) 83.2 H 37.0-80.0 % Lymphocytes (%) (Auto) 8.1 L 10.0-50.0 % Monocytes (%) (Auto) 8.1 0.0-12.0 % Eosinophils (%) (Auto) 0.1 0.0-7.0 % Basophils (%) (Auto) 0.5 0.0-2.0 % Neutrophils # (Auto) 11.0 H 1.6-8.6 10 ^3/uL Lymphocytes # (Auto) 1.1 0.4-5.4 10 ^3/uL Monocytes # (Auto) 1.1 0-1.3 10 ^3/uL Eosinophils # (Auto) 0 0-0.8 10 ^3/uL Basophils # (Auto) 0.1 0-0.2 10 ^3/uL Nucleated Red Blood Cells 0.0 % Sodium Level 146 H 136-145 mmol/L Potassium Level 3.9 3.5-5.1 mmol/L Chloride Level 105 98-107 mmol/L Carbon Dioxide Level 30 20-31 mmol/L Anion Gap 11 5-15 Blood Urea Nitrogen 43 H 9-23 mg/dL Creatinine 1.23 0.700-1.30 mg/dL Glomerular Filtration Rate Calc 69 >90 mL/min BUN/Creatinine Ratio 35.0 H 10.0-20.0 Serum Glucose 87 74-106 mg/dL Calcium Level 9.2 8.7-10.4 mg/dL Total Bilirubin 0.5 0.2-1.0 mg/dL Aspartate Amino Transferase (AST) 12 L 13-40 U/L Alanine Aminotransferase (ALT) 20 7-40 U/L Alkaline Phosphatase 38 L 46-116 U/L Total Protein 5.9 5.7-8.2 g/dL Albumin 4.0 3.2-4.8 g/dL Lipase 34 12-53 U/L Assessment/Plan Plan Patient is a 54-year-old gentleman who presented to the hospital with abdominal pain. He was in [facility] yesterday and had duodenal dilatation. He started having abdominal pain yesterday afternoon. Around 6:00 p.m. yesterday afternoon, the patient started having shortness of breath and chest discomfort also. He mentions that he started having dark stool at midnight which was continued today and decided to come to emergency room. While in emergency room, they were trying to arrange and transfer the patient to [facility] because of recent GI evaluation/management over there. There has been report of [facility] to be on dive rsion and the patient to be admitted here. Cardiology is involved for cardiac aspects of care. Patient is known to our practice from outside and before. Not in acute distress. Obese patient. Dry mucosa. [place] mucosa. No JVD. Not using accessory muscles of breathing. Lungs are clear to auscultation. Cardiac: Regular, no thrill/gallop. Abdomen is soft. No hepatomegaly. Ex tremities reveal 1+ edema bilateral. Dorsalis pedis is 2+ bilateral Past medical history includes morbid obesity, congestive heart failure, diastolic, history of prostate cancer (status post prostatectomy), obstructive sleep apnea (status post its surgery), old history of cocaine abuse, history of frequent PVC (status post multiple ablation), pulmonary hypertension, hyperlipidemia, hypertension, history of sustained ventricular tachycardia (status post ICD implantation, Medtronic), history of ICD lead dislodgement and a lead revision, anxiety disorder, DJD, GERD, gout, gastric ulcer, diverticular disease and hiatal hernia. He has had appendectomy and tonsillectomy before. Echocardiogram of August 03, 2024 had reported ejection fraction of 55%, no wall motion abnormality, trace TR/PI and right ventricular systolic pressure of 29 mm Echocardiogram of June 30, 2024 had reported ejection fraction of 60-65%, no wall motion abnormality, trace MR/TR and right ventricular systolic pressure of 30 mm Hg Left heart catheterization of July 01, 2024 had reported nonobstructive coronary artery disease, EDP of 21 mm Hg Hemoglobin: 10.1 WBC: 13.2 Creatinine: 1.23 Potassium: 3.9 Chest x-ray reported: No acute cardiopulmonary disease. Patient is a 54-year-old gentleman who presented with abdominal pain and GI bleeding. Did have duodenal dilatation by GI in [facility] 1 day before presentation. Did have episode of chest pain and shortness of breath the night before presentation. At the time of evaluation, not in acute distress and no chest discomfort. No troponin has been performed. Presentation does not look like a cute coronary syndrome, still troponins can be performed for further risk stratification. GI bleeding Abdominal pain Status post recent duodenal dilatation CHF (diastolic), history of Pulmonary hypertension Status post ICD implantation secondary to old history of sustained ventricular tachycardia Cardiac suggestion for management: Manage on telemetry Follow-up electrolytes and kidney function tests and correct abnormalities. Keep potassium above 4 and magnesium above 2 Serial troponin EKG Follow-up CBC/hemoglobin GI evaluation/consultation Primary team to evaluate and manage leukocytosis Further evaluation and management depends on the above and clinical course A total of 75 minutes was spent reviewing the patient record, examining the patient, making a diagnostic and therapeutic plan, discussing this plan with medical personnel, following up on diagnostic studies and following the patient for clinical stability excluding any and all procedures. At least 50% of this time was spent in direct, [id number] contact. Thank you for allowing me to participate in this patient's care. Further recommendations will depend on patient's clinical course. Please do not hesitate to contact me if you have any questions or concerns. This medical document was created using electronic medical record system with [employer] computerized dictation system. Although this document has been carefully reviewed, there may still be some phonetic and typographical errors. These areas are purely typographical due to the imperfection of the software programs, and do not reflect any compromise in the patient's medical care. Plan discussed with: Patient, Other (nurse) FRANKIE BORJAS MD Aug 06, 2025 16:04
== END 2025-08-06 16:25 | disposition home or self-care (01) ==
LOC: ER 06:47 → EDBD 06:47 → ER 15:52
DX: K92.1 Melena (principal); D78.22 Postprocedural hemorrhage of the spleen following other procedure; I11.0 Hypertensive heart disease with heart failure; I50.9 Heart failure, unspecified; E78.5 Hyperlipidemia, unspecified; E11.9 Type 2 diabetes mellitus without complications; F14.10 Cocaine abuse, uncomplicated; F17.200 Nicotine dependence, unspecified, uncomplicated; F41.9 Anxiety disorder, unspecified; M19.90 Unspecified osteoarthritis, unspecified site; Z79.82 Long term (current) use of aspirin; Z79.899 Other long term (current) drug therapy; Z85.46 Personal history of malignant neoplasm of prostate; Z86.79 Personal history of other diseases of the circulatory system; Z87.11 Personal history of peptic ulcer disease; Z90.49 Acquired absence of other specified parts of digestive tract; Z90.79 Acquired absence of other genital organ(s); Z90.89 Acquired absence of other organs; Z95.810 Presence of automatic (implantable) cardiac defibrillator
CPT/HCPCS: 36415; 71045; 80053; 83605; 83690; 85025; 93005